=== PATIENT | male | born 1945 ===

== ENCOUNTER 2017-06-19 16:23 | Inpatient (IN) | payer MEDICARE ==
[2017-06-19] MEDS ORDERED: ZALEPLON 5 MG PO PRN (21:26)
[2017-06-19] MEDS ORDERED: COLCHICINE 0.6 MG CAPSULE PO PRN (21:26)
[2017-06-19] MEDS ORDERED: POLYETHYLENE GLYCOL 3350 17 GM/Dose PACKET PO PRN (21:26)
[2017-06-20] MEDS: Levothyroxine 50 MCG TAB PO SCH (06:20)
[2017-06-20] MEDS: Pantoprazole 40 mg EC Tab PO SCH (06:20)
--- NOTE | 2017-06-20 13:12 | PSY.TMCNF ---
Nursing - Vital Signs Vital Signs (Last 8 hours): Vital Signs 06/20/17 06/20/17 06/20/17 06:19 08:29 08:30 Temperature Pulse Rate 60 78 78 Respiratory Rate Blood Pressure 145/84 148/87 148/72 O2 Sat by Pulse Oximetry 06/20/17 06/20/17 06/20/17 09:00 10:00 12:44 Temperature 97.8 F Pulse Rate 78 78 78 Respiratory 20 20 Rate Blood Pressure 148/72 148/80 148/80 O2 Sat by Pulse 98 98 Oximetry - Medications/Other Issues Comment: To follow as per nutrition protocol - Bladder Management Bladder Pattern: Normal - Bowel Management Bowel Pattern: Normal Physical Therapy - Pain Pain (assessed during therapy session): 0 Management Techniques: Medication - Insight/Carryover Insight/Carryover: Fair - Patient/Family Education Comment: -initiated about acute rehab program, OT/rehab goals and program. iniatted adls, functional transfers/mobility training - Provider License Number: [id number] Occupational Therapy - Arousal/Attention/Orientation Level of Consciousness: Awake, Alert Patient Orientation: Person, Place, Time, Appropriate to Age, Appropriate to Situation - ADL/IADL Self Feeding: Supervision, Set-up Help Grooming: Supervision, Verbal Cues, Set-up Help Dressing-Upper Extremity: Verbal Cues, Set-up Help, Moderate Assistance Dressing-Lower Extremity: Verbal Cues, Set-up Help, Maximum Assistance - Sitting Balance Static Sitting: Supervision Dynamic Sitting: Minimal Assistance Comment: unsupported at edge of bed - Transfers Wheelchair to Bed Transfers: Verbal Cues, Set-up Help, Moderate Assistance Toilet Transfers: Verbal Cues, Set-up Help, Moderate Assistance Comment: shower: TBA - Upper Extremity Status Right Upper Extremity Comment: AROM is WFLS Left Upper Extremity Comment: PROM Is WFLS, but impaired AROM - Pain Pain (assessed during therapy session): 0 Alleviating Techniques: Medication - Insight/Carryover Insight/Carryover: Fair - Patient/Family Education Comment: -initiated about acute rehab program, OT/rehab goals and program. iniatted adls, functional transfers/mobility training - Provider Therapist: ALEXANDER Payne/Guy License Number: [id number] Speech Therapy - Plan Frequency: 3-5 times per week Duration: 1 week Nutrition - Current Diet Current Diet/ Supplement/ Feedings: 2 gram Na low fat/low cholesterol, finely chopped - Appetite Percent Meal Consumed: 50-74% - Assessment/Goals/Time Frame Assessment/Goals/Time Frame: To follow as per nutrition protocol - Provider Provider: Brittney Ford RD Case Management - Discharge Plan Discharge Plan: Home alone (2nd floor walk up) Rehabilitation Plan - Treatment Plan Treatment Plan: Physical Therapy, Occupational Therapy, Speech, Dietary, Patient /Family Education
--- NOTE | 2017-06-20 13:13 | CP.PCM.CON ---
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 He has visual disturbance as well as some left neglect Review of Systems - Constitutional Constitutional: absent: Anorexia, Chills - EENT Eyes: Blurred Vision, Diplopia Ears: absent: Decreased Hearing, Ear Discharge Nose/Mouth/Throat: absent: Nasal Congestion - Cardiovascular Cardiovascular: absent: Chest Pain - Respiratory Respiratory: absent: Cough, Dyspnea, Hemoptysis - Gastrointestinal Gastrointestinal: absent: Belching, Bloating, Constipation, Cramping - Musculoskeletal Musculoskeletal: Abnormal Gait - Integumentary Integumentary: absent: Bleeding Lesions - Neurological Neurological: absent: Abnormal Hearing, Abnormal Movements Past Patient History - Infectious Disease Hx of Infectious Diseases: None - Tetanus Immunizations Tetanus Immunization: Unknown - Past Medical History & Family History Past Medical History?: Yes - Past Social History Smoking Status: Former Smoker Home Situation {Lives}: Alone - CARDIAC Hx Hypertension: Yes - PULMONARY Hx Respiratory Disorders: Yes Hx Sleep Apnea: Yes Other/Comment: uses BPAP - NEUROLOGICAL Hx Neurological Disorder: No - HEENT Hx Cataracts: Yes (b/l cataract removal) Other/Comment: tonsillectomy - RENAL Hx Chronic Kidney Disease: No - ENDOCRINE/METABOLIC Hx Hypothyroidism: Yes - HEMATOLOGICAL/ONCOLOGICAL Hx AIDS: No Hx Human Immunodeficiency Virus (HIV): No - INTEGUMENTARY Hx Dermatological Problems: No - MUSCULOSKELETAL/RHEUMATOLOGICAL Hx Falls: No - GASTROINTESTINAL Other/Comment: inguinal hernia repair - GENITOURINARY/GYNECOLOGICAL Hx Genitourinary Disorders: No - PSYCHIATRIC Hx Depression: Yes Hx Substance Use: No - SURGICAL HISTORY Hx Cataract Extraction: Yes (b/l) Hx Tonsillectomy: Yes Other/Comment: goiter removed, sinus surgery(Polyps). Inguinal Hernia. - ANESTHESIA Hx Anesthesia: Yes Hx Anesthesia Reactions: No Hx Malignant Hyperthermia: No Meds Allergies/Adverse Reactions: Allergies Allergy/AdvReac Type Severity Reaction Status Date / Time No Known Allergies Allergy Verified 06/19/17 21:26 - Medications Medications: Current Medications Amlodipine Besylate (Norvasc) 10 mg PO DAILY [facility] Last Admin: 06/20/17 08:29 Dose: 10 mg Aspirin (Ecotrin) 81 mg PO DAILY COUNTS INCLUDE 234 BEDS AT THE [facility] Last Admin: 06/20/17 08:28 Dose: 81 mg Atenolol (Tenormin) 25 mg PO DAILY COUNTS INCLUDE 234 BEDS AT THE [facility] Last Admin: 06/20/17 08:30 Dose: 25 mg Atorvastatin Calcium (Lipitor) 80 mg PO DIN COUNTS INCLUDE 234 BEDS AT THE [facility] Clopidogrel Bisulfate (Plavix) 75 mg PO DAILY COUNTS INCLUDE 234 BEDS AT THE [facility] Last Admin: 06/20/17 08:28 Dose: 75 mg Colchicine (Colchicine) 0.6 mg PO DAILY PRN PRN Reason: Pain, Mild (1-3) Docusate Sodium (Colace) 100 mg PO BID COUNTS INCLUDE 234 BEDS AT THE [facility] Gabapentin (Neurontin) 100 mg PO BID COUNTS INCLUDE 234 BEDS AT THE [facility] Last Admin: 06/20/17 08:28 Dose: 100 mg Home Med (Febuxostat [Uloric]) 80 mg PO DAILY COUNTS INCLUDE 234 BEDS AT THE [facility] Home Med (Zaleplon [Sonata]) 5 mg PO HS PRN PRN Reason: Insomnia Hydralazine HCl (Apresoline) 10 mg PO QID PRN PRN Reason: for sbp>170 & or diastolic>100 Hydralazine HCl (Apresoline) 10 mg PO Q8 COUNTS INCLUDE 234 BEDS AT THE [facility] Last Admin: 06/20/17 06:19 Dose: 10 mg Levothyroxine Sodium (Synthroid) 50 mcg PO DAILY@0630 COUNTS INCLUDE 234 BEDS AT THE [facility] Last Admin: 06/20/17 06:20 Dose: 50 mcg Meclizine HCl (Antivert) 25 mg PO TID PRN PRN Reason: Dizziness Pantoprazole Sodium (Protonix Ec Tab) 40 mg PO 0600 COUNTS INCLUDE 234 BEDS AT THE [facility] Last Admin: 06/20/17 06:20 Dose: 40 mg Polyethylene Glycol (Miralax) 17 gm PO HS PRN PRN Reason: Constipation Sertraline HCl (Zoloft) 50 mg PO DAILY COUNTS INCLUDE 234 BEDS AT THE [facility] Last Admin: 06/20/17 09:59 Dose: 50 mg Zolpidem Tartrate (Ambien) 5 mg PO HS PRN PRN Reason: Insomnia Physical Exam - Constitutional Appears: Non-toxic, No Acute Distress - Head Exam Head Exam: ATRAUMATIC (keeps his right eye closed which lessens his diploplia) - Eye Exam Eye Exam: absent: Periorbital tenderness - ENT Exam ENT Exam: Mucous Membranes Moist - Respiratory Exam Respiratory Exam: NORMAL BREATHING PATTERN. absent: Chest Wall Tenderness - Cardiovascular Exam Cardiovascular Exam: REGULAR RHYTHM - GI/Abdominal Exam GI & Abdominal Exam: absent: Distended, Firm - Extremities Exam Extremities exam: Positive for: normal inspection. Negative for: calf tenderness, pedal edema - Neurological Exam Neurological exam: Alert, Oriented x3 - Psychiatric Exam Psychiatric exam: Normal Affect, Normal Mood - Skin Skin Exam: Warm Results - Vital Signs Recent Vital Signs: Last Vital Signs Temp 97.8 F 06/20/17 10:00 Pulse 78 06/20/17 12:44 Resp 20 06/20/17 12:44 BP 148/80 06/20/17 12:44 Pulse Ox 98 06/20/17 12:44 - Labs Result Diagrams: 06/20/17 15:25 06/20/17 15:25 Labs: Laboratory Results - last 24 hr 06/20/17 05:00 Hemoglobin A1c 5.5 Assessment & Plan - Assessment and Plan (Free Text) Assessment: 71 year old male with left HP here for acute inpatient rehab left UE dense HP left LE proximal strength is 3/5, distal 1/5 PT/OT to continue to help increase functional independence Team conference for d/c planning Pain: controlled Vascular: no evidence of DVT GI: No evidence of constipation or diarrhea Patient is an excellent acute rehabilitation candidate and will have focused speech, PT, OT and recreational therapy to help facilitate a safe and appropriate d/c plan impairment code 01.1
[2017-06-20] MEDS: FEBUXOSTAT 80 MG PO SCH (13:23)
--- NOTE | 2017-06-20 15:05 | PCM.RRTMUL ---
<Steven Yang - Last Filed: 06/21/17 12:20> MANAGER FRENCH Nurse Assessment - Ventilator Settings FIO2 (% Oxygen):: 30 - Vital Signs Blood Pressure:: 152/87 I.Reason for MANAGER FRENCH - A) Acute Change in Patient: Subjective: MANAGER FRENCH Time: 2:46p.m. Vital Signs: BP-125/69 RR-14 HR-58 O2%-97 S: Pt. seen at bed. MANAGER FRENCH called because patient just had a bowel movement and felt dizzy and got up and collappsed but did not lose consciousness. Pt. now in bed alert awake oriented x 3. Pt. denies hitting his head on the floor. Pt. wiht no complaints at this time. O: General: AAOx3 NAD Heent: NC/AT Resp: CTAB Cardio:S1-S2 no mumur MANAGER FRENCH Intervention CBC BMP EKG O2 via Nasal Canula Accucheck MANAGER FRENCH outcome: EKG- with no change from previous EKG Pt. stable and asymptomatic 139 accucheck A/P: 71 y.o. male in acute rehab s/p CVA in stable conditon. PMD notified, DR. Linder aware MANAGER FRENCH End 2:55p.m. Vitals signs BP139/75 RR-14 HR-55 O2 via NC 100% MANAGER FRENCH resident: Trey Srivastava M.D. MANAGER FRENCH leader: Dr. Sayda Mon <Sayda Mon - Last Filed: 06/27/17 16:48> Attending/Attestation - Attestation I have personally seen and examined this patient.: Yes I have fully participated in the care of the patient.: Yes I have reviewed all pertinent clinical information, including history, physical exam and plan: Yes Notes (Text): 06/27/17 16:48 seen and examined with resident, agree wit findings and plan as above.
[2017-06-20 15:28] LABS: HEMATOCRIT 46.2 % (35.0-51.0); MEAN CELL VOLUME 93.2 fl (80.0-94.0); MEAN CORPUSCULAR HEMOGLOBIN 31.7 pg (27.0-31.0); RED CELL DISTRIBUTION WIDTH 13.4 % (11.5-14.5); WHITE BLOOD COUNT 10.1 K/uL (4.8-10.8)
[2017-06-20 15:45] LABS: BLOOD UREA NITROGEN 24 mg/dl (9-20); CALCIUM 9.4 mg/dL (8.4-10.2); CARBON DIOXIDE 21 mmol/L (22-30); CHLORIDE 101 mmol/L (98-107); GFR AFRICAN-AMERICAN > 60; GLUCOSE,RANDOM 117 mg/dL (75-110); POTASSIUM 4.2 MMOL/L (3.6-5.0); SODIUM 134 mmol/l (132-148)
--- NOTE | 2017-06-20 15:49 | CARD ---
APPROVED REPORT EKG Measurement Heart [id number] <Conclusion> Sinus bradycardia with 1st degree AV block Possible Left atrial enlargement Inferior infarct, age undetermined Abnormal ECG
--- NOTE | 2017-06-20 17:08 | CP.PCM.PN ---
Subjective - Date & Time of Evaluation Date of Evaluation: 06/20/17 Time of Evaluation: 17:07 - Subjective Subjective: right HP Objective - Vital Signs/Intake and Output Vital Signs (last 24 hours): Temp Pulse Resp BP Pulse Ox 97.8 F 56 L 18 125/69 98 06/20/17 10:00 06/20/17 15:01 06/20/17 15:01 06/20/17 15:01 06/20/17 12:44 - Medications Medications: Current Medications Amlodipine Besylate (Norvasc) 10 mg PO DAILY [facility] Last Admin: 06/20/17 08:29 Dose: 10 mg Aspirin (Ecotrin) 81 mg PO DAILY [facility] Last Admin: 06/20/17 08:28 Dose: 81 mg Atenolol (Tenormin) 25 mg PO DAILY [facility] Last Admin: 06/20/17 08:30 Dose: 25 mg Atorvastatin Calcium (Lipitor) 80 mg PO DIN [facility] Last Admin: 06/20/17 17:04 Dose: 80 mg Clopidogrel Bisulfate (Plavix) 75 mg PO DAILY [facility] Last Admin: 06/20/17 08:28 Dose: 75 mg Colchicine (Colchicine) 0.6 mg PO DAILY PRN PRN Reason: Pain, Mild (1-3) Docusate Sodium (Colace) 100 mg PO BID [facility] Gabapentin (Neurontin) 100 mg PO BID [facility] Last Admin: 06/20/17 17:05 Dose: 100 mg Home Med (Febuxostat [Uloric]) 80 mg PO DAILY [facility] Hydralazine HCl (Apresoline) 10 mg PO QID PRN PRN Reason: for sbp>170 & or diastolic>100 Hydralazine HCl (Apresoline) 10 mg PO Q8 [facility] Last Admin: 06/20/17 13:41 Dose: 10 mg Levothyroxine Sodium (Synthroid) 50 mcg PO DAILY@0630 [facility] Last Admin: 06/20/17 06:20 Dose: 50 mcg Meclizine HCl (Antivert) 25 mg PO TID PRN PRN Reason: Dizziness Pantoprazole Sodium (Protonix Ec Tab) 40 mg PO 0600 [facility] Last Admin: 06/20/17 06:20 Dose: 40 mg Polyethylene Glycol (Miralax) 17 gm PO HS PRN PRN Reason: Constipation Sertraline HCl (Zoloft) 50 mg PO DAILY [facility] Last Admin: 06/20/17 09:59 Dose: 50 mg Zolpidem Tartrate (Ambien) 5 mg PO HS PRN PRN Reason: Insomnia - Labs Labs: 06/20/17 15:25 06/20/17 15:25 Physiatry Overall Plan of Care - Overall Plan of Care Estimated Length of Stay in Weeks: 3 Rehab Impairment: Mobility, Gait, Balance, Coordination Etiologic Diagnosis: Cerebrovascular Accident Rehab/Medical Prognosis: Fair - Anticipated Interventions Physical Therapy:: Yes Occupational Therapy:: Yes Speech Therapy:: Yes Recreational Therapy:: Yes - Therapy Goals Bed Mobility: Independent Ambulation: Supervision Functional Positional Changes:: Supervision - Discharge Plan Discharge Destination: Home
--- NOTE | 2017-06-20 18:35 | PCM.RRTMUL ---
<Steven Yang - Last Filed: 06/20/17 18:33> CERTIFIED WELLNESS PROGRAM COORDINATOR Nurse Assessment - Situation CERTIFIED WELLNESS PROGRAM COORDINATOR Responder Arrival Time:: 14:50 Location:: [address] [place] [address] 622 Room Number:: 622 CERTIFIED WELLNESS PROGRAM COORDINATOR Reason for Call: Looks Sicker CERTIFIED WELLNESS PROGRAM COORDINATOR Called By: RN - IV IV Inserted during CERTIFIED WELLNESS PROGRAM COORDINATOR?: No - Respiratory Oxygen Delivery Method:: Nasal Cannula Received Nebulizer Treatments:: No Was the Patient Ventilated with Bag/Mask 100% O2?: No Secretions Suctioned?: No Was the Patient Intubated?: No Was the Patient Placed on a Ventilator?: No - Ventilator Settings FIO2 (% Oxygen):: 30 - Diagnostic Test Ordered EKG:: Yes Chest X-Ray:: No CT Scan:: No - Stat Labs Ordered CERTIFIED WELLNESS PROGRAM COORDINATOR Stat Labs Ordered:: CBC, BMP CPR started during CERTIFIED WELLNESS PROGRAM COORDINATOR?: No - Vital Signs Blood Pressure:: 125/69 Pulse Rate:: 56 Respiratory Rate:: 18 Oxygen Saturation:: 100 - [place] Coma Scale Coma Scale Eye Opening:: Spontaneous Coma Scale Motor:: Obeys Commands Movement Coma Scale Verbal:: Oriented Coma Scale Total:: 15 - Time CERTIFIED WELLNESS PROGRAM COORDINATOR Ended Time CERTIFIED WELLNESS PROGRAM COORDINATOR Ended:: 14:55 - Vital Signs at end of CERTIFIED WELLNESS PROGRAM COORDINATOR Blood Pressure:: 139/75 Pulse Rate:: 57 Respiratory Rate:: 18 O2 Sat by Pulse Oximetry:: 100 - Recommendations 5) CERTIFIED WELLNESS PROGRAM COORDINATOR Level of Care Recommendations: Remain in current setting 6) Notifications: Attending Physician I.Reason for CERTIFIED WELLNESS PROGRAM COORDINATOR - A) Acute Change in Patient: Subjective: CERTIFIED WELLNESS PROGRAM COORDINATOR Time: 2:46p.m. Vital Signs: BP-125/69 RR-14 HR-58 O2%-97 S: Pt. seen at bed. CERTIFIED WELLNESS PROGRAM COORDINATOR called because patient just had a bowel movement and felt dizzy and got up and collappsed but did not lose consciousness. Pt. now in bed alert awake oriented x 3. Pt. denies hitting his head on the floor. Pt. wiht no complaints at this time. O: General: AAOx3 NAD Heent: NC/AT Resp: CTAB Cardio:S1-S2 no mumur CERTIFIED WELLNESS PROGRAM COORDINATOR Intervention CBC BMP EKG O2 via Nasal Canula Accucheck CERTIFIED WELLNESS PROGRAM COORDINATOR outcome: EKG- with no change from previous EKG Pt. stable and asymptomatic 139 accucheck A/P: 71 y.o. male in acute rehab s/p CVA in stable conditon. PMD notified, DR. Linder aware CERTIFIED WELLNESS PROGRAM COORDINATOR End 2:55p.m. Vitals signs BP139/75 RR-14 HR-55 O2 via NC 100% CERTIFIED WELLNESS PROGRAM COORDINATOR resident: Trey Srivastava M.D. CERTIFIED WELLNESS PROGRAM COORDINATOR leader: Dr. Sayda Mon <Sayda Mon - Last Filed: 06/20/17 19:04> Attending/Attestation - Attestation I have personally seen and examined this patient.: Yes I have fully participated in the care of the patient.: Yes I have reviewed all pertinent clinical information, including history, physical exam and plan: Yes Notes (Text): 06/20/17 19:03 seen and examined [facility] residents , agree with findings and plan as above.
[2017-06-21] MEDS: Pantoprazole 40 mg EC Tab PO SCH (06:19)
[2017-06-21] MEDS: Levothyroxine 50 MCG TAB PO SCH (06:20)
[2017-06-21 06:47] LABS: URIC ACID 7.5 mg/Dl (3.5-8.5)
[2017-06-21 07:12] LABS: THYROID STIMULATING HORMONE 0.24 mIU/ML (0.46-4.68)
[2017-06-21] MEDS: FEBUXOSTAT 80 MG PO SCH (13:21)
--- NOTE | 2017-06-21 14:10 | CP.PCM.HP ---
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 patient seen and examined with attending Denies CP, SOB, N/V/D, fevers, chills, headache, dizziness Present on Admission - Present on Admission Any Indicators Present on Admission: No History of DVT/PE: No History of Uncontrolled Diabetes: No Urinary Catheter: No Decubitus Ulcer Present: No Review of Systems - Review of Systems All systems: reviewed and no additional remarkable complaints except (as per HPI ) Past Patient History - Infectious Disease Hx of Infectious Diseases: None - Tetanus Immunizations Tetanus Immunization: Unknown - Past Medical History & Family History Past Medical History?: Yes - Past Social History Smoking Status: Former Smoker Home Situation {Lives}: Alone - CARDIAC Hx Hypertension: Yes - PULMONARY Hx Respiratory Disorders: Yes Hx Sleep Apnea: Yes Other/Comment: uses BPAP - NEUROLOGICAL Hx Neurological Disorder: No - HEENT Hx Cataracts: Yes (b/l cataract removal) Other/Comment: tonsillectomy - RENAL Hx Chronic Kidney Disease: No - ENDOCRINE/METABOLIC Hx Hypothyroidism: Yes - HEMATOLOGICAL/ONCOLOGICAL Hx AIDS: No Hx Human Immunodeficiency Virus (HIV): No - INTEGUMENTARY Hx Dermatological Problems: No - MUSCULOSKELETAL/RHEUMATOLOGICAL Hx Falls: No - GASTROINTESTINAL Other/Comment: inguinal hernia repair - GENITOURINARY/GYNECOLOGICAL Hx Genitourinary Disorders: No - PSYCHIATRIC Hx Depression: Yes Hx Substance Use: No - SURGICAL HISTORY Hx Cataract Extraction: Yes (b/l) Hx Tonsillectomy: Yes Other/Comment: goiter removed, sinus surgery(Polyps). Inguinal Hernia. - ANESTHESIA Hx Anesthesia: Yes Hx Anesthesia Reactions: No Hx Malignant Hyperthermia: No Meds Allergies/Adverse Reactions: Allergies Allergy/AdvReac Type Severity Reaction Status Date / Time No Known Allergies Allergy Verified 06/19/17 21:26 Physical Exam - Constitutional Appears: Non-toxic, No Acute Distress - ENT Exam ENT Exam: Mucous Membranes Moist - Respiratory Exam Respiratory Exam: Clear to Auscultation Bilateral, NORMAL BREATHING PATTERN - Cardiovascular Exam Cardiovascular Exam: REGULAR RHYTHM, +S1, +S2 - GI/Abdominal Exam GI & Abdominal Exam: Normal Bowel Sounds, Soft. absent: Distended, Guarding, Rigid, Tenderness - Extremities Exam Extremities exam: Positive for: normal inspection. Negative for: calf tenderness, pedal edema - Neurological Exam Neurological exam: Alert, Oriented x3 - Skin Skin Exam: Dry, Intact, Normal Color Results - Vital Signs Recent Vital Signs: Last Vital Signs Temp 96.3 F L 06/21/17 09:49 Pulse 61 06/21/17 13:02 Resp 20 06/21/17 09:49 BP 130/82 06/21/17 13:02 Pulse Ox 96 06/21/17 09:49 - Labs Result Diagrams: 06/20/17 15:25 06/20/17 15:25 Labs: Laboratory Results - last 24 hr 06/20/17 06/20/17 06/20/17 14:51 15:25 15:25 WBC 10.1 RBC 4.96 Hgb 15.7 Hct 46.2 MCV 93.2 MCH 31.7 H MCHC 34.0 RDW 13.4 Plt Count 229 Sodium 134 Potassium 4.2 Chloride 101 Carbon Dioxide 21 L Anion Gap 16 BUN 24 H Creatinine 1.4 Est GFR ( Amer) > 60 Est GFR (Non-Af Amer) 50 POC Glucose (mg/dL) 139 H Random Glucose 117 H Uric Acid Calcium 9.4 Triglycerides Cholesterol LDL Cholesterol Direct HDL Cholesterol TSH 3rd Generation 06/21/17 05:30 WBC RBC Hgb Hct MCV MCH MCHC RDW Plt Count Sodium Potassium Chloride Carbon Dioxide Anion Gap BUN Creatinine Est GFR ( Amer) Est GFR (Non-Af Amer) POC Glucose (mg/dL) Random Glucose Uric Acid 7.5 Calcium Triglycerides 77 Cholesterol 94 LDL Cholesterol Direct 43 HDL Cholesterol 30 TSH 3rd Generation 0.24 L Assessment & Plan - Assessment and Plan (Free Text) Assessment: 71 y/o M with Right Pont[place] stroke and secondary Left hemiplegia , admitted for rehabilitation Plan: Right Pontine stroke -Admit to acute rehab c/w current medical treatment c/w Aspirin, Plavix, and Statin -PT/OT evaluation and Tx HTN -c/w current meds c/w BP monitoring Hypothyroidism -c/w current management - Date & Time Date: 06/20/17 Time: 10:45 <Charles Linder - Last Filed: 07/06/17 09:33> Results - Vital Signs Recent Vital Signs: Last Vital Signs Temp 98.3 F 07/06/17 08:09 Pulse 71 07/06/17 08:25 Resp 20 07/06/17 08:09 BP 145/79 07/06/17 08:25 Pulse Ox 97 07/06/17 08:09 - Labs Result Diagrams: 06/20/17 15:25 06/20/17 15:25 Assessment & Plan (1) Right pontine stroke Status: Acute Priority: High (2) Hyperthyroidism Status: Acute (3) Hypertension Status: Acute (4) Cough Status: Acute (5) Nasopharyngitis, chronic Status: Acute - Assessment and Plan (Free Text) Plan: I was present during evaluation and discussed with Dr Prasanna vincent plans of care and treatment.
--- NOTE | 2017-06-21 14:30 | CP.PCM.PN ---
<PrasannaSarika - Last Filed: 06/21/17 18:38> Subjective - Date & Time of Evaluation Date of Evaluation: 06/21/17 Time of Evaluation: 10:05 - Subjective Subjective: Patient seen and examined with attending this morning Patient feeling well this morning Denies CP, SOB, N/V, dizziness. Yesterday an [employer] was called because He was feeling dizzy while having a bowel movement, but did not lose consciousness Afebrile, and VS stable Objective - Vital Signs/Intake and Output Vital Signs (last 24 hours): Temp Pulse Resp BP Pulse Ox 96.3 F L 61 20 130/82 96 06/21/17 09:49 06/21/17 13:02 06/21/17 09:49 06/21/17 13:02 06/21/17 09:49 - Medications Medications: Current Medications Amlodipine Besylate (Norvasc) 10 mg PO DAILY [facility] Last Admin: 06/21/17 09:02 Dose: 10 mg Aspirin (Ecotrin) 81 mg PO DAILY [facility] Last Admin: 06/21/17 13:03 Dose: 81 mg Atenolol (Tenormin) 25 mg PO DAILY [facility] Last Admin: 06/21/17 09:00 Dose: 25 mg Atorvastatin Calcium (Lipitor) 80 mg PO DIN [facility] Last Admin: 06/20/17 17:04 Dose: 80 mg Clopidogrel Bisulfate (Plavix) 75 mg PO DAILY [facility] Last Admin: 06/21/17 08:59 Dose: 75 mg Colchicine (Colchicine) 0.6 mg PO DAILY PRN PRN Reason: Pain, Mild (1-3) Docusate Sodium (Colace) 100 mg PO BID [facility] Last Admin: 06/21/17 08:58 Dose: 100 mg Gabapentin (Neurontin) 100 mg PO BID [facility] Last Admin: 06/21/17 09:02 Dose: 100 mg Home Med (Febuxostat [Uloric]) 80 mg PO DAILY [facility] Hydralazine HCl (Apresoline) 10 mg PO QID PRN PRN Reason: for sbp>170 & or diastolic>100 Hydralazine HCl (Apresoline) 10 mg PO Q8 [facility] Last Admin: 06/21/17 13:02 Dose: 10 mg Levothyroxine Sodium (Synthroid) 50 mcg PO DAILY@0630 [facility] Last Admin: 06/21/17 06:20 Dose: 50 mcg Meclizine HCl (Antivert) 25 mg PO TID PRN PRN Reason: Dizziness Last Admin: 06/21/17 09:07 Dose: 25 mg Pantoprazole Sodium (Protonix Ec Tab) 40 mg PO 0600 [facility] Last Admin: 06/21/17 06:19 Dose: 40 mg Polyethylene Glycol (Miralax) 17 gm PO HS PRN PRN Reason: Constipation Sertraline HCl (Zoloft) 50 mg PO DAILY [facility] Last Admin: 06/21/17 09:00 Dose: 50 mg Zolpidem Tartrate (Ambien) 5 mg PO HS PRN PRN Reason: Insomnia - Labs Labs: 06/20/17 15:25 06/20/17 15:25 - Constitutional Appears: No Acute Distress - ENT Exam ENT Exam: Mucous Membranes Moist - Respiratory Exam Respiratory Exam: Clear to Ausculation Bilateral, NORMAL BREATHING PATTERN - Cardiovascular Exam Cardiovascular Exam: REGULAR RHYTHM, +S1, +S2 - GI/Abdominal Exam GI & Abdominal Exam: Soft, Normal Bowel Sounds. absent: Guarding, Rigid, Tenderness - Extremities Exam Extremities Exam: Normal Inspection. absent: Calf Tenderness, Pedal Edema - Neurological Exam Neurological Exam: Alert, Awake, Oriented x3 - Psychiatric Exam Psychiatric exam: Normal Affect, Normal Mood - Skin Skin Exam: Dry, Intact, Normal Color Assessment and Plan - Assessment and Plan (Free Text) Assessment: 71 y/o M with Right Pontine stroke and secondary Left hemiplegia , admitted for rehabilitation Plan: Right Pontine stroke c/w rehabilitation c/w current medical treatment c/w Aspirin, Plavix, and Statin HTN -c/w current meds c/w BP monitoring Hypothyroidism -c/w current management <Charles Linder - Last Filed: 07/06/17 09:34> Objective - Vital Signs/Intake and Output Vital Signs (last 24 hours): Temp Pulse Resp BP Pulse Ox 98.3 F 71 20 145/79 97 07/06/17 08:09 07/06/17 08:25 07/06/17 08:09 07/06/17 08:25 07/06/17 08:09 - Medications Medications: Current Medications Albuterol/Ipratropium (Duoneb 3 Mg/0.5 Mg (3 Ml) Ud) 3 ml INH RTID [facility] Last Admin: 07/06/17 07:32 Dose: 3 ml Allopurinol (Zyloprim) 100 mg PO DAILY [facility] Last Admin: 07/06/17 08:26 Dose: 100 mg Aspirin (Ecotrin) 81 mg PO DAILY [facility] Last Admin: 07/06/17 08:24 Dose: 81 mg Atenolol (Tenormin) 25 mg PO DAILY [facility] Last Admin: 07/06/17 08:25 Dose: 25 mg Atorvastatin Calcium (Lipitor) 80 mg PO DIN [facility] Last Admin: 07/05/17 17:43 Dose: 80 mg Clopidogrel Bisulfate (Plavix) 75 mg PO DAILY [facility] Last Admin: 07/06/17 08:24 Dose: 75 mg Colchicine (Colchicine) 0.6 mg PO DAILY PRN PRN Reason: Pain, Mild (1-3) Last Admin: 06/24/17 08:32 Dose: 0.6 mg Docusate Sodium (Colace) 100 mg PO BID [facility] Last Admin: 07/06/17 08:23 Dose: 100 mg Fluticasone Propionate (Flonase) 1 spr JASMYN BID [facility] Last Admin: 07/06/17 08:24 Dose: 1 spr Gabapentin (Neurontin) 600 mg PO HS [facility] Last Admin: 07/05/17 21:38 Dose: 600 mg Gabapentin (Neurontin) 300 mg PO DAILY [facility] Last Admin: 07/06/17 08:24 Dose: 300 mg Hydralazine HCl (Apresoline) 25 mg PO Q8 [facility] Last Admin: 07/06/17 06:10 Dose: 25 mg Levothyroxine Sodium (Synthroid) 50 mcg PO DAILY@0630 [facility] Last Admin: 07/06/17 06:09 Dose: 50 mcg Lorazepam (Ativan) 0.5 mg PO BID PRN PRN Reason: Anxiety Meclizine HCl (Antivert) 25 mg PO TID PRN PRN Reason: Dizziness Last Admin: 06/25/17 15:20 Dose: 25 mg Multivitamins/Minerals (Therapeutic-M Tab) 1 tab PO DAILY [facility] Last Admin: 07/06/17 08:25 Dose: 1 tab Pantoprazole Sodium (Protonix Ec Tab) 40 mg PO 0600 [facility] Last Admin: 07/06/17 06:10 Dose: 40 mg Polyethylene Glycol (Miralax) 17 gm PO HS PRN PRN Reason: Constipation Last Admin: 06/21/17 21:18 Dose: 17 gm Promethazine HCl/Codeine (Phenergan/Codeine Oral Syrup) 10 ml PO Q6 PRN PRN Reason: Cough Fluticasone/Salmeterol (Advair Diskus 250/50) 1 puff IH Q12 [facility] Last Admin: 07/06/17 08:22 Dose: 1 puff Sennosides (Senokot Tab) 17.2 mg PO HS [facility] Last Admin: 07/05/17 21:39 Dose: Not Given Sertraline HCl (Zoloft) 50 mg PO DAILY [facility] Last Admin: 07/06/17 08:26 Dose: 50 mg Trazodone HCl (Desyrel) 50 mg PO HS PRN PRN Reason: Insomnia Last Admin: 07/06/17 00:57 Dose: 50 mg Verapamil HCl (Calan Sr Tab) 180 mg PO DAILY [facility] Last Admin: 07/06/17 08:22 Dose: 180 mg - Labs Labs: 06/20/17 15:25 06/20/17 15:25 Assessment and Plan (1) Right pontine stroke Status: Acute (2) Hyperthyroidism Status: Acute (3) Hypertension Status: Acute (4) Cough Status: Acute (5) Nasopharyngitis, chronic Status: Acute - Assessment and Plan (Free Text) Plan: I was present during evaluation and discussed with Dr Mims re plans of care. Charles Linder M.D.
--- NOTE | 2017-06-21 19:10 | CP.PCM.PN ---
Subjective - Date & Time of Evaluation Date of Evaluation: 06/21/17 Time of Evaluation: 19:10 - Subjective Subjective: patient seen in room denies sob/cp able to ambulate 25' in therapy today continue current care. + left HP Objective - Vital Signs/Intake and Output Vital Signs (last 24 hours): Temp Pulse Resp BP Pulse Ox 96.3 F L 61 20 130/82 96 06/21/17 09:49 06/21/17 13:02 06/21/17 09:49 06/21/17 13:02 06/21/17 09:49 - Medications Medications: Current Medications Amlodipine Besylate (Norvasc) 10 mg PO DAILY [facility] Last Admin: 06/21/17 09:02 Dose: 10 mg Aspirin (Ecotrin) 81 mg PO DAILY [facility] Last Admin: 06/21/17 13:03 Dose: 81 mg Atenolol (Tenormin) 25 mg PO DAILY [facility] Last Admin: 06/21/17 09:00 Dose: 25 mg Atorvastatin Calcium (Lipitor) 80 mg PO DIN [facility] Last Admin: 06/21/17 17:11 Dose: 80 mg Clopidogrel Bisulfate (Plavix) 75 mg PO DAILY [facility] Last Admin: 06/21/17 08:59 Dose: 75 mg Colchicine (Colchicine) 0.6 mg PO DAILY PRN PRN Reason: Pain, Mild (1-3) Docusate Sodium (Colace) 100 mg PO BID [facility] Last Admin: 06/21/17 17:10 Dose: 100 mg Gabapentin (Neurontin) 100 mg PO BID [facility] Last Admin: 06/21/17 17:10 Dose: 100 mg Home Med (Febuxostat [Uloric]) 80 mg PO DAILY [facility] Hydralazine HCl (Apresoline) 10 mg PO QID PRN PRN Reason: for sbp>170 & or diastolic>100 Hydralazine HCl (Apresoline) 10 mg PO Q8 [facility] Last Admin: 06/21/17 13:02 Dose: 10 mg Levothyroxine Sodium (Synthroid) 50 mcg PO DAILY@0630 [facility] Last Admin: 06/21/17 06:20 Dose: 50 mcg Meclizine HCl (Antivert) 25 mg PO TID PRN PRN Reason: Dizziness Last Admin: 06/21/17 09:07 Dose: 25 mg Pantoprazole Sodium (Protonix Ec Tab) 40 mg PO 0600 [facility] Last Admin: 06/21/17 06:19 Dose: 40 mg Polyethylene Glycol (Miralax) 17 gm PO HS PRN PRN Reason: Constipation Sertraline HCl (Zoloft) 50 mg PO DAILY [facility] Last Admin: 06/21/17 09:00 Dose: 50 mg Zolpidem Tartrate (Ambien) 5 mg PO HS PRN PRN Reason: Insomnia - Labs Labs: 06/20/17 15:25 06/20/17 15:25
[2017-06-22] MEDS: Levothyroxine 50 MCG TAB PO SCH (06:28)
[2017-06-22] MEDS: Pantoprazole 40 mg EC Tab PO SCH (06:28)
[2017-06-22] MEDS: FEBUXOSTAT 80 MG PO SCH (13:22)
--- NOTE | 2017-06-22 22:17 | CP.PCM.PN ---
Subjective - Date & Time of Evaluation Date of Evaluation: 06/22/17 Time of Evaluation: 09:00 - Subjective Subjective: patient was seen and examined with attending patient afebrile, VS stable no events overnight Objective - Vital Signs/Intake and Output Vital Signs (last 24 hours): Temp Pulse Resp BP Pulse Ox 98.3 F 62 19 158/84 H 96 06/22/17 09:39 06/22/17 21:41 06/22/17 09:39 06/22/17 21:41 06/22/17 09:39 - Medications Medications: Current Medications Allopurinol (Zyloprim) 100 mg PO DAILY [facility] Last Admin: 06/22/17 13:19 Dose: 100 mg Amlodipine Besylate (Norvasc) 10 mg PO DAILY [facility] Last Admin: 06/22/17 08:41 Dose: 10 mg Aspirin (Ecotrin) 81 mg PO DAILY [facility] Last Admin: 06/22/17 08:40 Dose: 81 mg Atenolol (Tenormin) 25 mg PO DAILY [facility] Last Admin: 06/22/17 08:41 Dose: 25 mg Atorvastatin Calcium (Lipitor) 80 mg PO DIN [facility] Last Admin: 06/22/17 17:30 Dose: 80 mg Clopidogrel Bisulfate (Plavix) 75 mg PO DAILY [facility] Last Admin: 06/22/17 08:40 Dose: 75 mg Colchicine (Colchicine) 0.6 mg PO DAILY PRN PRN Reason: Pain, Mild (1-3) Docusate Sodium (Colace) 100 mg PO BID [facility] Last Admin: 06/22/17 17:29 Dose: 100 mg Gabapentin (Neurontin) 100 mg PO BID [facility] Last Admin: 06/22/17 17:29 Dose: 100 mg Hydralazine HCl (Apresoline) 10 mg PO QID PRN PRN Reason: for sbp>170 & or diastolic>100 Hydralazine HCl (Apresoline) 10 mg PO Q8 [facility] Last Admin: 06/22/17 21:41 Dose: 10 mg Levothyroxine Sodium (Synthroid) 50 mcg PO DAILY@0630 [facility] Last Admin: 06/22/17 06:28 Dose: 50 mcg Meclizine HCl (Antivert) 25 mg PO TID PRN PRN Reason: Dizziness Last Admin: 06/21/17 09:07 Dose: 25 mg Pantoprazole Sodium (Protonix Ec Tab) 40 mg PO 0600 [facility] Last Admin: 06/22/17 06:28 Dose: 40 mg Polyethylene Glycol (Miralax) 17 gm PO HS PRN PRN Reason: Constipation Last Admin: 06/21/17 21:18 Dose: 17 gm Sennosides (Senokot Tab) 17.2 mg PO HS [facility] Last Admin: 06/22/17 21:47 Dose: 17.2 mg Sertraline HCl (Zoloft) 50 mg PO DAILY [facility] Last Admin: 06/22/17 08:42 Dose: 50 mg Zolpidem Tartrate (Ambien) 5 mg PO HS PRN PRN Reason: Insomnia - Labs Labs: 06/20/17 15:25 06/20/17 15:25 - Additional Findings Additional findings: Constitutional Appears: No Acute Distress - ENT Exam ENT Exam: Mucous Membranes Moist - Respiratory Exam Respiratory Exam: Clear to Ausculation Bilateral, NORMAL BREATHING PATTERN - Cardiovascular Exam Cardiovascular Exam: REGULAR RHYTHM, +S1, +S2 - GI/Abdominal Exam GI & Abdominal Exam: Soft, Normal Bowel Sounds. absent: Guarding, Rigid, Tenderness - Extremities Exam Extremities Exam: Normal Inspection. 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
[2017-06-23] MEDS: Pantoprazole 40 mg EC Tab PO SCH (06:16)
[2017-06-23] MEDS: Levothyroxine 50 MCG TAB PO SCH (06:16)
--- NOTE | 2017-06-23 07:55 | CP.PCM.CON ---
History of Present Illness - History of Present Illness History of Present Illness: Pt is a 71 year old male referred to the lyric writer for evaluation following a CVA. Med history positive for HTN, overactive thyroid, hernia, cataracts. See medical record for complete medical history and medications. Social History: Pt lives alone. He was 3x. Pt has two children ages 6 and 12 who reside with their mother. Pt;s grown children reside in [place]. Pt's siblings reside in [place]. Ed/Voc: pt born/raised in the [facility], college educated, worked as a teacher. Pt did multiple jobs in the [place], and last [employer]. Psych: pt reported a history of psych intervention 10+ years ago for treatment of depression. No recent history. No hx of alc/sub abuse. Pt spoke of satisfaction prior to admission with yazdanism daily and [employer] study. He spoke of his depression with the CVA, depression/anxiety and worry. Pt spoke of improved mood with the progress observed. MSE: pt alert, oriented x3, relevant/coherent, no psychosis, affect constricted , mood dysphoric, no si ho hi ideation. Pt spoke of his optimism, desire for progress and return to lifestyle. Dx: ADjustment Dx plan: Continued Sup therapy Past Patient History - Infectious Disease Hx of Infectious Diseases: None - Tetanus Immunizations Tetanus Immunization: Unknown - Past Medical History & Family History Past Medical History?: Yes - Past Social History Smoking Status: Former Smoker Home Situation {Lives}: Alone - CARDIAC Hx Hypertension: Yes - PULMONARY Hx Respiratory Disorders: Yes Hx Sleep Apnea: Yes Other/Comment: uses BPAP - NEUROLOGICAL Hx Neurological Disorder: No - HEENT Hx Cataracts: Yes (b/l cataract removal) Other/Comment: tonsillectomy - RENAL Hx Chronic Kidney Disease: No - ENDOCRINE/METABOLIC Hx Hypothyroidism: Yes - HEMATOLOGICAL/ONCOLOGICAL Hx AIDS: No Hx Human Immunodeficiency Virus (HIV): No - INTEGUMENTARY Hx Dermatological Problems: No - MUSCULOSKELETAL/RHEUMATOLOGICAL Hx Falls: No - GASTROINTESTINAL Other/Comment: inguinal hernia repair - GENITOURINARY/GYNECOLOGICAL Hx Genitourinary Disorders: No - PSYCHIATRIC Hx Depression: Yes Hx Substance Use: No - SURGICAL HISTORY Hx Cataract Extraction: Yes (b/l) Hx Tonsillectomy: Yes Other/Comment: goiter removed, sinus surgery(Polyps). Inguinal Hernia. - ANESTHESIA Hx Anesthesia: Yes Hx Anesthesia Reactions: No Hx Malignant Hyperthermia: No Meds Allergies/Adverse Reactions: Allergies Allergy/AdvReac Type Severity Reaction Status Date / Time No Known Allergies Allergy Verified 06/19/17 21:26 - Medications Medications: Current Medications Allopurinol (Zyloprim) 100 mg PO DAILY [facility] Last Admin: 06/22/17 13:19 Dose: 100 mg Amlodipine Besylate (Norvasc) 10 mg PO DAILY [facility] Last Admin: 06/22/17 08:41 Dose: 10 mg Aspirin (Ecotrin) 81 mg PO DAILY [facility] Last Admin: 06/22/17 08:40 Dose: 81 mg Atenolol (Tenormin) 25 mg PO DAILY [facility] Last Admin: 06/22/17 08:41 Dose: 25 mg Atorvastatin Calcium (Lipitor) 80 mg PO DIN [facility] Last Admin: 06/22/17 17:30 Dose: 80 mg Clopidogrel Bisulfate (Plavix) 75 mg PO DAILY [facility] Last Admin: 06/22/17 08:40 Dose: 75 mg Colchicine (Colchicine) 0.6 mg PO DAILY PRN PRN Reason: Pain, Mild (1-3) Docusate Sodium (Colace) 100 mg PO BID [facility] Last Admin: 06/22/17 17:29 Dose: 100 mg Gabapentin (Neurontin) 100 mg PO BID [facility] Last Admin: 06/22/17 17:29 Dose: 100 mg Hydralazine HCl (Apresoline) 10 mg PO QID PRN PRN Reason: for sbp>170 & or diastolic>100 Hydralazine HCl (Apresoline) 10 mg PO Q8 [facility] Last Admin: 06/23/17 06:14 Dose: 10 mg Levothyroxine Sodium (Synthroid) 50 mcg PO DAILY@0630 [facility] Last Admin: 06/23/17 06:16 Dose: 50 mcg Meclizine HCl (Antivert) 25 mg PO TID PRN PRN Reason: Dizziness Last Admin: 06/21/17 09:07 Dose: 25 mg Pantoprazole Sodium (Protonix Ec Tab) 40 mg PO 0600 [facility] Last Admin: 06/23/17 06:16 Dose: 40 mg Polyethylene Glycol (Miralax) 17 gm PO HS PRN PRN Reason: Constipation Last Admin: 06/21/17 21:18 Dose: 17 gm Sennosides (Senokot Tab) 17.2 mg PO HS [facility] Last Admin: 06/22/17 21:47 Dose: 17.2 mg Sertraline HCl (Zoloft) 50 mg PO DAILY [facility] Last Admin: 06/22/17 08:42 Dose: 50 mg Zolpidem Tartrate (Ambien) 5 mg PO HS PRN PRN Reason: Insomnia Results - Vital Signs Recent Vital Signs: Last Vital Signs Temp 97.4 F L 06/22/17 20:00 Pulse 67 06/23/17 06:14 Resp 20 06/22/17 20:00 BP 154/80 H 06/23/17 06:14 Pulse Ox 96 06/22/17 20:00 - Labs Result Diagrams: 06/20/17 15:25 06/20/17 15:25
--- NOTE | 2017-06-23 09:51 | CP.PCM.PN ---
Subjective - Date & Time of Evaluation Date of Evaluation: 06/23/17 Time of Evaluation: 09:50 - Subjective Subjective: Patient is doing very well Has no chest pain or SOB Still with occasional constipation. Objective - Vital Signs/Intake and Output Vital Signs (last 24 hours): Temp Pulse Resp BP Pulse Ox 97.4 F L 70 20 158/79 H 96 06/22/17 20:00 06/23/17 08:47 06/22/17 20:00 06/23/17 08:48 06/22/17 20:00 - Medications Medications: Current Medications Allopurinol (Zyloprim) 100 mg PO DAILY [facility] Last Admin: 06/23/17 08:45 Dose: 100 mg Amlodipine Besylate (Norvasc) 10 mg PO DAILY [facility] Last Admin: 06/23/17 08:48 Dose: 10 mg Aspirin (Ecotrin) 81 mg PO DAILY [facility] Last Admin: 06/23/17 08:45 Dose: 81 mg Atenolol (Tenormin) 25 mg PO DAILY [facility] Last Admin: 06/23/17 08:47 Dose: 25 mg Atorvastatin Calcium (Lipitor) 80 mg PO DIN [facility] Last Admin: 06/22/17 17:30 Dose: 80 mg Clopidogrel Bisulfate (Plavix) 75 mg PO DAILY [facility] Last Admin: 06/23/17 08:46 Dose: 75 mg Colchicine (Colchicine) 0.6 mg PO DAILY PRN PRN Reason: Pain, Mild (1-3) Docusate Sodium (Colace) 100 mg PO BID [facility] Last Admin: 06/23/17 08:46 Dose: 100 mg Gabapentin (Neurontin) 100 mg PO BID [facility] Last Admin: 06/23/17 08:46 Dose: 100 mg Hydralazine HCl (Apresoline) 10 mg PO QID PRN PRN Reason: for sbp>170 & or diastolic>100 Hydralazine HCl (Apresoline) 10 mg PO Q8 [facility] Last Admin: 06/23/17 06:14 Dose: 10 mg Levothyroxine Sodium (Synthroid) 50 mcg PO DAILY@0630 [facility] Last Admin: 06/23/17 06:16 Dose: 50 mcg Meclizine HCl (Antivert) 25 mg PO TID PRN PRN Reason: Dizziness Last Admin: 06/23/17 08:50 Dose: 25 mg Pantoprazole Sodium (Protonix Ec Tab) 40 mg PO 0600 [facility] Last Admin: 06/23/17 06:16 Dose: 40 mg Polyethylene Glycol (Miralax) 17 gm PO HS PRN PRN Reason: Constipation Last Admin: 06/21/17 21:18 Dose: 17 gm Sennosides (Senokot Tab) 17.2 mg PO HS [facility] Last Admin: 06/22/17 21:47 Dose: 17.2 mg Sertraline HCl (Zoloft) 50 mg PO DAILY [facility] Last Admin: 06/23/17 08:46 Dose: 50 mg Zolpidem Tartrate (Ambien) 5 mg PO HS PRN PRN Reason: Insomnia - Labs Labs: 06/20/17 15:25 06/20/17 15:25 - Head Exam Head Exam: NORMAL INSPECTION - Eye Exam Eye Exam: Normal appearance - ENT Exam ENT Exam: Mucous Membranes Moist - Respiratory Exam Respiratory Exam: Clear to Ausculation Bilateral - Cardiovascular Exam Cardiovascular Exam: REGULAR RHYTHM - GI/Abdominal Exam GI & Abdominal Exam: Normal Bowel Sounds - Neurological Exam Neurological Exam: Awake, Oriented x3 Assessment and Plan (1) Neurologic gait dysfunction Status: Acute (2) Hypertension Status: Acute (3) Hypothyroidism Status: Acute (4) Right pontine stroke Status: Acute - Assessment and Plan (Free Text) Plan: Con tmeds Cont tx Cont PT
--- NOTE | 2017-06-23 20:52 | CP.PCM.PN ---
Subjective - Date & Time of Evaluation Date of Evaluation: 06/23/17 Time of Evaluation: 15:00 - Subjective Subjective: no acute complaints Objective - Vital Signs/Intake and Output Vital Signs (last 24 hours): Temp Pulse Resp BP Pulse Ox 97.0 F L 67 18 159/93 H 96 06/23/17 20:08 06/23/17 20:08 06/23/17 20:08 06/23/17 20:08 06/23/17 20:08 - Medications Medications: Current Medications Allopurinol (Zyloprim) 100 mg PO DAILY [facility] Last Admin: 06/23/17 08:45 Dose: 100 mg Amlodipine Besylate (Norvasc) 10 mg PO DAILY [facility] Last Admin: 06/23/17 08:48 Dose: 10 mg Aspirin (Ecotrin) 81 mg PO DAILY [facility] Last Admin: 06/23/17 08:45 Dose: 81 mg Atenolol (Tenormin) 25 mg PO DAILY [facility] Last Admin: 06/23/17 08:47 Dose: 25 mg Atorvastatin Calcium (Lipitor) 80 mg PO DIN [facility] Last Admin: 06/23/17 16:47 Dose: 80 mg Clopidogrel Bisulfate (Plavix) 75 mg PO DAILY [facility] Last Admin: 06/23/17 08:46 Dose: 75 mg Colchicine (Colchicine) 0.6 mg PO DAILY PRN PRN Reason: Pain, Mild (1-3) Docusate Sodium (Colace) 100 mg PO BID [facility] Last Admin: 06/23/17 16:47 Dose: 100 mg Gabapentin (Neurontin) 100 mg PO DAILY [facility] Gabapentin (Neurontin) 600 mg PO HS [facility] Hydralazine HCl (Apresoline) 10 mg PO QID PRN PRN Reason: for sbp>170 & or diastolic>100 Hydralazine HCl (Apresoline) 10 mg PO Q8 [facility] Last Admin: 06/23/17 13:24 Dose: 10 mg Levothyroxine Sodium (Synthroid) 50 mcg PO DAILY@0630 [facility] Last Admin: 06/23/17 06:16 Dose: 50 mcg Meclizine HCl (Antivert) 25 mg PO TID PRN PRN Reason: Dizziness Last Admin: 06/23/17 08:50 Dose: 25 mg Pantoprazole Sodium (Protonix Ec Tab) 40 mg PO 0600 [facility] Last Admin: 06/23/17 06:16 Dose: 40 mg Polyethylene Glycol (Miralax) 17 gm PO HS PRN PRN Reason: Constipation Last Admin: 06/21/17 21:18 Dose: 17 gm Sennosides (Senokot Tab) 17.2 mg PO HS [facility] Last Admin: 06/22/17 21:47 Dose: 17.2 mg Sertraline HCl (Zoloft) 50 mg PO DAILY [facility] Last Admin: 06/23/17 08:46 Dose: 50 mg - Labs Labs: 06/20/17 15:25 06/20/17 15:25 - Head Exam Head Exam: ATRAUMATIC, NORMAL INSPECTION, NORMOCEPHALIC - Eye Exam Eye Exam: EOMI, Normal appearance Pupil Exam: NORMAL ACCOMODATION, PERRL - ENT Exam ENT Exam: Mucous Membranes Moist, Normal Exam - Neck Exam Neck Exam: Normal Inspection - Respiratory Exam Respiratory Exam: Clear to Ausculation Bilateral, NORMAL BREATHING PATTERN - Cardiovascular Exam Cardiovascular Exam: REGULAR RHYTHM - GI/Abdominal Exam GI & Abdominal Exam: Normal Bowel Sounds - Rectal Exam Rectal Exam: NORMAL INSPECTION - Exam External exam: NORMAL EXTERNAL EXAM Bimanual exam: NORMAL BIMANUAL EXAM - Extremities Exam Extremities Exam: Normal Capillary Refill - Back Exam Back Exam: NORMAL INSPECTION - Neurological Exam Neurological Exam: Alert, Awake - Psychiatric Exam Psychiatric exam: Normal Affect - Skin Skin Exam: Normal Color Assessment and Plan (1) Dizziness Status: Acute (2) Hyperthyroidism Status: Acute (3) Right pontine stroke Assessment & Plan: plan for physical, occupational, rec therapy covering for Dr francois Status: Acute (4) Sprain of knee Status: Acute
[2017-06-24] MEDS: Pantoprazole 40 mg EC Tab PO SCH (05:55)
[2017-06-24] MEDS: Levothyroxine 50 MCG TAB PO SCH (05:56)
[2017-06-25] MEDS: Levothyroxine 50 MCG TAB PO SCH (06:36)
[2017-06-25] MEDS: Pantoprazole 40 mg EC Tab PO SCH (06:36)
--- NOTE | 2017-06-25 11:18 | CP.PCM.PN ---
Subjective - Date & Time of Evaluation Date of Evaluation: 06/24/17 Time of Evaluation: 10:00 - Subjective Subjective: patient is doing well Has no chest pain or SOB. Objective - Vital Signs/Intake and Output Vital Signs (last 24 hours): Temp Pulse Resp BP Pulse Ox 97.0 F L 57 L 20 138/72 96 06/25/17 08:18 06/25/17 09:12 06/25/17 08:18 06/25/17 09:12 06/25/17 08:18 - Medications Medications: Current Medications Allopurinol (Zyloprim) 100 mg PO DAILY [facility] Last Admin: 06/25/17 09:11 Dose: 100 mg Amlodipine Besylate (Norvasc) 10 mg PO DAILY [facility] Last Admin: 06/25/17 09:12 Dose: Not Given Aspirin (Ecotrin) 81 mg PO DAILY [facility] Last Admin: 06/25/17 09:11 Dose: 81 mg Atenolol (Tenormin) 25 mg PO DAILY [facility] Last Admin: 06/25/17 09:11 Dose: 25 mg Atorvastatin Calcium (Lipitor) 80 mg PO DIN [facility] Last Admin: 06/24/17 16:50 Dose: 80 mg Clopidogrel Bisulfate (Plavix) 75 mg PO DAILY [facility] Last Admin: 06/25/17 09:11 Dose: 75 mg Colchicine (Colchicine) 0.6 mg PO DAILY PRN PRN Reason: Pain, Mild (1-3) Last Admin: 06/24/17 08:32 Dose: 0.6 mg Docusate Sodium (Colace) 100 mg PO BID [facility] Last Admin: 06/25/17 09:11 Dose: 100 mg Gabapentin (Neurontin) 100 mg PO DAILY [facility] Last Admin: 06/25/17 09:10 Dose: 100 mg Gabapentin (Neurontin) 600 mg PO HS [facility] Last Admin: 06/24/17 21:17 Dose: 600 mg Hydralazine HCl (Apresoline) 10 mg PO Q8 [facility] Last Admin: 06/25/17 06:36 Dose: 10 mg Levothyroxine Sodium (Synthroid) 50 mcg PO DAILY@0630 [facility] Last Admin: 06/25/17 06:36 Dose: 50 mcg Meclizine HCl (Antivert) 25 mg PO TID PRN PRN Reason: Dizziness Last Admin: 06/25/17 09:11 Dose: 25 mg Pantoprazole Sodium (Protonix Ec Tab) 40 mg PO 0600 [facility] Last Admin: 06/25/17 06:36 Dose: 40 mg Polyethylene Glycol (Miralax) 17 gm PO HS PRN PRN Reason: Constipation Last Admin: 06/21/17 21:18 Dose: 17 gm Sennosides (Senokot Tab) 17.2 mg PO HS [facility] Last Admin: 06/24/17 21:16 Dose: 17.2 mg Sertraline HCl (Zoloft) 50 mg PO DAILY [facility] Last Admin: 06/25/17 09:11 Dose: 50 mg - Labs Labs: 06/20/17 15:25 06/20/17 15:25
[2017-06-26] MEDS: Pantoprazole 40 mg EC Tab PO SCH (05:48)
[2017-06-26] MEDS: Levothyroxine 50 MCG TAB PO SCH (05:48)
--- NOTE | 2017-06-26 17:07 | CP.PCM.PN ---
Subjective - Date & Time of Evaluation Date of Evaluation: 06/26/17 Time of Evaluation: 17:06 - Subjective Subjective: Patient seen in the room good left LE strength and improving left UE strength, but 3-/5 proximal strength ambulating 45' with quad cane continue current care Objective - Vital Signs/Intake and Output Vital Signs (last 24 hours): Temp Pulse Resp BP Pulse Ox 97.8 F 63 20 142/86 97 06/26/17 09:32 06/26/17 13:17 06/26/17 09:32 06/26/17 13:17 06/26/17 09:32 - Medications Medications: Current Medications Albuterol/Ipratropium (Duoneb 3 Mg/0.5 Mg (3 Ml) Ud) 3 ml INH RTID [facility] Allopurinol (Zyloprim) 100 mg PO DAILY [facility] Last Admin: 06/26/17 08:23 Dose: 100 mg Aspirin (Ecotrin) 81 mg PO DAILY [facility] Last Admin: 06/26/17 08:24 Dose: 81 mg Atenolol (Tenormin) 25 mg PO DAILY [facility] Last Admin: 06/26/17 08:26 Dose: 25 mg Atorvastatin Calcium (Lipitor) 80 mg PO DIN [facility] Last Admin: 06/26/17 16:31 Dose: 80 mg Clopidogrel Bisulfate (Plavix) 75 mg PO DAILY [facility] Last Admin: 06/26/17 08:22 Dose: 75 mg Colchicine (Colchicine) 0.6 mg PO DAILY PRN PRN Reason: Pain, Mild (1-3) Last Admin: 06/24/17 08:32 Dose: 0.6 mg Docusate Sodium (Colace) 100 mg PO BID [facility] Last Admin: 06/26/17 16:30 Dose: 100 mg Gabapentin (Neurontin) 100 mg PO DAILY [facility] Last Admin: 06/26/17 08:23 Dose: 100 mg Gabapentin (Neurontin) 600 mg PO HS [facility] Last Admin: 06/25/17 21:10 Dose: 600 mg Hydralazine HCl (Apresoline) 10 mg PO Q8 [facility] Last Admin: 06/26/17 13:17 Dose: 10 mg Levothyroxine Sodium (Synthroid) 50 mcg PO DAILY@0630 [facility] Last Admin: 06/26/17 05:48 Dose: 50 mcg Meclizine HCl (Antivert) 25 mg PO TID PRN PRN Reason: Dizziness Last Admin: 06/25/17 15:20 Dose: 25 mg Pantoprazole Sodium (Protonix Ec Tab) 40 mg PO 0600 [facility] Last Admin: 06/26/17 05:48 Dose: 40 mg Polyethylene Glycol (Miralax) 17 gm PO HS PRN PRN Reason: Constipation Last Admin: 06/21/17 21:18 Dose: 17 gm Sennosides (Senokot Tab) 17.2 mg PO HS [facility] Last Admin: 06/25/17 21:10 Dose: 17.2 mg Sertraline HCl (Zoloft) 50 mg PO DAILY [facility] Last Admin: 06/26/17 08:22 Dose: 50 mg Verapamil HCl (Calan Sr Capsule) 120 mg PO DAILY [facility] - Labs Labs: 06/20/17 15:25 06/20/17 15:25
[2017-06-26] MEDS ORDERED: Albuterol-Ipratrop 3 mg / 0.5 (3 ml) UD INH STA (18:29)
[2017-06-26] MEDS: Albuterol-Ipratrop 3 mg / 0.5 (3 ml) UD INH SCH (18:59)
[2017-06-27] MEDS: Levothyroxine 50 MCG TAB PO SCH (06:11)
[2017-06-27] MEDS: Pantoprazole 40 mg EC Tab PO SCH (06:11)
[2017-06-27] MEDS: Albuterol-Ipratrop 3 mg / 0.5 (3 ml) UD INH SCH ×3 (07:20→20:23)
[2017-06-27] MEDS ORDERED: Verapamil SR 120 MG CApsule PO SCH (09:00)
--- NOTE | 2017-06-27 13:18 | PSY.TMCNF ---
Nursing - Vital Signs Vital Signs (Last 8 hours): Vital Signs 06/27/17 06/27/17 06/27/17 06:11 08:47 08:56 Temperature 98.1 F Pulse Rate 67 68 68 Respiratory 20 Rate Blood Pressure 169/94 H 152/87 H 152/87 H O2 Sat by Pulse Oximetry 06/27/17 06/27/17 09:02 13:13 Temperature 98.1 F Pulse Rate 68 60 Respiratory 20 Rate Blood Pressure 152/87 H 151/76 H O2 Sat by Pulse 96 Oximetry Pain: 0 - Precautions: Precautions: Fall Prevention, Aspiration - Medications/Other Issues Comment: Tends to be impulsive during ADL's. Safety precautions reinforced. - Consults Comment: Dr. Min, Dr. Andrade - Toileting Toileting: Moderate Assistance - Bladder Management Bladder Pattern: Normal Voiding Method: Toilet, Urinal Bladder Management: Supervision Frequency of Accidents: 0 - Bowel Management Bowel Pattern: Normal Bowel Management: Supervision Frequency of Accidents: 0 - Transfers Transfers: Moderate Assistance - ADL's ADL's: Maximal Assistance - Patient/Family Teaching Comments: CARE POST CVA AND SAFETY PRECAUTIONS - Goals/Time Frame Comments: PER MULTIDISCIPLINARY CARE PLAN GOALS - Provider Provider: NISREEN GIRALDON RN CRRN Physical Therapy - Bed Mobility Bed Mobility: Contact Guard, Minimal Assistance - Transfers Wheelchair to Mat: Verbal Cues, Minimal Assistance, Moderate Assistance Sit to Stand: Verbal Cues, Contact Guard, Minimal Assistance - Ambulation Level of Assistance: Verbal Cues, Minimal Assistance, Moderate Assistance Distance (ft.): 45 Assistive Devices: Wide base quad cane Orthoses: posterior leat spring used on RLE Comment: -45 feet with WBQC (RUE) and posterior spring leaf trial AFO on the L foot 2' to foot drop. -patient requires min A for balance/weight shifting and mod A at times for balance. -patient uses step to pattern and requires cues for improved L foot placement to improve anterior/posterior alignment and position - Stair Negotiation Stairs: Level of Assistance: Verbal Cues, Minimal Assistance, Moderate Assistance Number of Stairs: 4 Stairs: Assistive Devices: Right Handrail Comment: 4 6inch steps with R rail, step to pattern with step by step cueing for sequencing mod A on descent with assistance to abduction L foot and min/mod A on ascent, VCs for control and sequencing and safety. -requires cues to reduce speed and maintain breathing patern - Standing Balance Static Stand: Contact Guard Assist Dynamic Stand: Minimal Assistance, Moderate Assistance - Pain Pain (assessed during therapy session): 0 Management Techniques: Medication - Insight/Carryover Insight/Carryover: Fair - Patient/Family Education Comment: safety, therapy schedule, therapy goals, mobility, use of DME, stroke recovery, relaxation techniques, use of call [place], WC mobility, POC - Assessment/Plan Assessment: Pt is agreeable to participate in recreation therapy sessions. Pt is oriented to new leisure tasks to improve pt's attention to task, problem solving, and insight. Pt demonstrates improved direction following; however, requires min-mod verbal cues for attention to task and task carryover. Pt's mood continues to be stable-positive although presents with decrease insight of deficits. - Goals Timeframe: 7 days Goals: -6 steps with single rail with min A. -75 feet with WBQC with CG with appropriate L foot bracing. -CG for sit to/from stand. -min A for SPT - Provider License Number: [id number] Occupational Therapy - Arousal/Attention/Orientation Patient Orientation: Person, Place, Time, Appropriate to Age, Appropriate to Situation - ADL/IADL Self Feeding: Independent, Set-up Help Grooming: Independent, Set-up Help Dressing-Upper Extremity: Verbal Cues, Set-up Help, Moderate Assistance Dressing-Lower Extremity: Verbal Cues, Set-up Help, Maximum Assistance - Sitting Balance Dynamic Sitting: Reaches across midline, Reaches out of base of support, Reaches within base of support, Contact Guard Assist, Minimal Assistance Comment: unsupported at edge of bed - Transfers Wheelchair to Bed Transfers: Verbal Cues, Set-up Help, Minimal Assistance Toilet Transfers: Verbal Cues, Set-up Help, Minimal Assistance - Wheelchair Management Level of Assistance: Dependent - Upper Extremity Status Right Upper Extremity Comment: AROM is WFLS Left Upper Extremity Comment: PROM Is WFLS, but impaired AROM - Pain Pain (assessed during therapy session): 0 Alleviating Techniques: Medication - Insight/Carryover Insight/Carryover: Fair - Patient/Family Education Comment: safety, therapy schedule, therapy goals, mobility, use of DME, stroke recovery, relaxation techniques, use of call [place], WC mobility, POC - Assessment/Plan Assessment: Pt is agreeable to participate in recreation therapy sessions. Pt is oriented to new leisure tasks to improve pt's attention to task, problem solving, and insight. Pt demonstrates improved direction following; however, requires min-mod verbal cues for attention to task and task carryover. Pt's mood continues to be stable-positive although presents with decrease insight of deficits. - Goals Timeframe: 7 days Goals: -6 steps with single rail with min A. -75 feet with WBQC with CG with appropriate L foot bracing. -CG for sit to/from stand. -min A for SPT - Provider Therapist: Betsey Price, OTR/L Speech Therapy - Consult Information Patient on Program: Yes Medical Diagnosis: CVA Treatment Diagnosis: minimal dysarthria and dysphagia - Assessment Comment: minimal dysarthria, though speech WFL when utilizing compensatory speech strategies - Plan Assessment: Pt is agreeable to participate in recreation therapy sessions. Pt is oriented to new leisure tasks to improve pt's attention to task, problem solving, and insight. Pt demonstrates improved direction following; however, requires min-mod verbal cues for attention to task and task carryover. Pt's mood continues to be stable-positive although presents with decrease insight of deficits. - Provider Therapist: Keely Bean License Number: [id number] Recreational Therapy - Participation Participation: Participates in Individual and/or Group Sessions - Attendance Attendance: 3-5 times per week - Activities Leisure Activities: Cards and Games - Socialization Level of Socialization: Initiates/interacts freely with care givers and peer - Diversional Time Diversional Time: socializing - Assessment Assessment/Plan: Pt is agreeable to participate in recreation therapy sessions. Pt is oriented to new leisure tasks to improve pt's attention to task, problem solving, and insight. Pt demonstrates improved direction following; however, requires min-mod verbal cues for attention to task and task carryover. Pt's mood continues to be stable-positive although presents with decrease insight of deficits. Problems Currently Limiting Participation: L side weakness, decrease leisure awareness level, slurred speech Goals and Time Frame: Pt will be encouraged to participate in 1:1 and group recreation therapy sessions 3-5x week to improve activity tolerance level, arousal level, and leisure awareness level. - Provider Therapist: Alta Beyer, MONUMENT MASON #[id number] Nutrition - Current Diet Current Diet/ Supplement/ Feedings: 2 gram Na low fat/low cholesterol advanced bite size thin liquids. no straw when drinking - Appetite Percent Meal Consumed: 75-100% - Comments Comments: CARE POST CVA AND SAFETY PRECAUTIONS - Assessment/Goals/Time Frame Assessment/Goals/Time Frame: Tends to be impulsive during ADL's. Safety precautions reinforced. - Provider Provider: Brittney Ford RD Case Management - Psychosocial Assessment Support Systems: Lives alone. Has supportive friend Cintia Psychological Interventions/Needs: Alert and oriented . He is motivated to participate in all therapy treatments Discharge Concerns: Lives alone in a 2nd floor walk up apartment Patient/Family Meeting: Met with patient who was just admitted to the Rehab unit 06/19/2017 to reteam. Intervention/Goal/Outcome:: Reteam - Discharge Plan Discharge Plan: Home with significant other/family, Home with services - Provider Provider: Tracy Joseph RNpressing department supervisor Plan - Discharge Plan Estimated Date of Discharge: 07/06/17 Discharge to: Subacute
--- NOTE | 2017-06-27 16:07 | CP.PCM.PN ---
Subjective - Date & Time of Evaluation Date of Evaluation: 06/27/17 Time of Evaluation: 09:50 - Subjective Subjective: patient seen and examined with attending afebrile, but still with elevated SBP Denies Cp, SOB, cough, chills, N/V, abdominal pain no events overnight Objective - Vital Signs/Intake and Output Vital Signs (last 24 hours): Temp Pulse Resp BP Pulse Ox 98.1 F 60 20 151/76 H 96 06/27/17 09:02 06/27/17 13:13 06/27/17 09:02 06/27/17 13:13 06/27/17 09:02 - Medications Medications: Current Medications Albuterol/Ipratropium (Duoneb 3 Mg/0.5 Mg (3 Ml) Ud) 3 ml INH RTID [facility] Last Admin: 06/27/17 13:24 Dose: Not Given Allopurinol (Zyloprim) 100 mg PO DAILY [facility] Last Admin: 06/27/17 08:47 Dose: 100 mg Aspirin (Ecotrin) 81 mg PO DAILY [facility] Last Admin: 06/27/17 08:46 Dose: 81 mg Atenolol (Tenormin) 25 mg PO DAILY [facility] Last Admin: 06/27/17 08:47 Dose: 25 mg Atorvastatin Calcium (Lipitor) 80 mg PO DIN [facility] Last Admin: 06/26/17 16:31 Dose: 80 mg Clopidogrel Bisulfate (Plavix) 75 mg PO DAILY [facility] Last Admin: 06/27/17 08:46 Dose: 75 mg Colchicine (Colchicine) 0.6 mg PO DAILY PRN PRN Reason: Pain, Mild (1-3) Last Admin: 06/24/17 08:32 Dose: 0.6 mg Docusate Sodium (Colace) 100 mg PO BID [facility] Last Admin: 06/27/17 08:46 Dose: 100 mg Fluticasone Propionate (Flonase) 1 spr JASMYN BID [facility] Last Admin: 06/27/17 08:46 Dose: 1 spr Gabapentin (Neurontin) 100 mg PO DAILY [facility] Last Admin: 06/27/17 08:47 Dose: 100 mg Gabapentin (Neurontin) 600 mg PO HS [facility] Last Admin: 06/26/17 21:36 Dose: 600 mg Hydralazine HCl (Apresoline) 10 mg PO Q8 [facility] Last Admin: 06/27/17 13:13 Dose: 10 mg Levothyroxine Sodium (Synthroid) 50 mcg PO DAILY@0630 [facility] Last Admin: 06/27/17 06:11 Dose: 50 mcg Meclizine HCl (Antivert) 25 mg PO TID PRN PRN Reason: Dizziness Last Admin: 06/25/17 15:20 Dose: 25 mg Pantoprazole Sodium (Protonix Ec Tab) 40 mg PO 0600 [facility] Last Admin: 06/27/17 06:11 Dose: 40 mg Polyethylene Glycol (Miralax) 17 gm PO HS PRN PRN Reason: Constipation Last Admin: 06/21/17 21:18 Dose: 17 gm Sennosides (Senokot Tab) 17.2 mg PO HS [facility] Last Admin: 06/27/17 00:01 Dose: Not Given Sertraline HCl (Zoloft) 50 mg PO DAILY [facility] Last Admin: 06/27/17 08:47 Dose: 50 mg Verapamil HCl (Calan Sr Capsule) 120 mg PO DAILY [facility] - Labs Labs: 06/20/17 15:25 06/20/17 15:25 - Additional Findings Additional findings: Constitutional Appears: No Acute Distress - ENT Exam ENT Exam: Mucous Membranes Moist - Respiratory Exam Respiratory Exam: Clear to Ausculation Bilateral, NORMAL BREATHING PATTERN - Cardiovascular Exam Cardiovascular Exam: REGULAR RHYTHM, +S1, +S2 - GI/Abdominal Exam GI & Abdominal Exam: Soft, Normal Bowel Sounds. absent: Guarding, Rigid, Tenderness - Extremities Exam Extremities Exam: Normal Inspection. 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
--- NOTE | 2017-06-27 18:55 | CP.PCM.PN ---
Subjective - Date & Time of Evaluation Date of Evaluation: 06/27/17 Time of Evaluation: 18:54 - Subjective Subjective: Patient seen in PT gym doing ok some limited insight affecting safety will need to go to [facility] he is in agreement with this plan and remains motivated no pain at this point continue current care Objective - Vital Signs/Intake and Output Vital Signs (last 24 hours): Temp Pulse Resp BP Pulse Ox 98.1 F 57 L 20 151/76 H 98 06/27/17 09:02 06/27/17 17:01 06/27/17 09:02 06/27/17 13:13 06/27/17 17:01 - Medications Medications: Current Medications Albuterol/Ipratropium (Duoneb 3 Mg/0.5 Mg (3 Ml) Ud) 3 ml INH RTID [facility] Last Admin: 06/27/17 13:24 Dose: Not Given Allopurinol (Zyloprim) 100 mg PO DAILY [facility] Last Admin: 06/27/17 08:47 Dose: 100 mg Aspirin (Ecotrin) 81 mg PO DAILY [facility] Last Admin: 06/27/17 08:46 Dose: 81 mg Atenolol (Tenormin) 25 mg PO DAILY [facility] Last Admin: 06/27/17 08:47 Dose: 25 mg Atorvastatin Calcium (Lipitor) 80 mg PO DIN [facility] Last Admin: 06/27/17 17:33 Dose: 80 mg Clopidogrel Bisulfate (Plavix) 75 mg PO DAILY [facility] Last Admin: 06/27/17 08:46 Dose: 75 mg Colchicine (Colchicine) 0.6 mg PO DAILY PRN PRN Reason: Pain, Mild (1-3) Last Admin: 06/24/17 08:32 Dose: 0.6 mg Docusate Sodium (Colace) 100 mg PO BID [facility] Last Admin: 06/27/17 17:33 Dose: 100 mg Fluticasone Propionate (Flonase) 1 spr JASMYN BID [facility] Last Admin: 06/27/17 17:33 Dose: 1 spr Gabapentin (Neurontin) 100 mg PO DAILY [facility] Last Admin: 06/27/17 08:47 Dose: 100 mg Gabapentin (Neurontin) 600 mg PO HS [facility] Last Admin: 06/26/17 21:36 Dose: 600 mg Hydralazine HCl (Apresoline) 10 mg PO Q8 [facility] Last Admin: 06/27/17 13:13 Dose: 10 mg Levothyroxine Sodium (Synthroid) 50 mcg PO DAILY@0630 [facility] Last Admin: 06/27/17 06:11 Dose: 50 mcg Meclizine HCl (Antivert) 25 mg PO TID PRN PRN Reason: Dizziness Last Admin: 06/25/17 15:20 Dose: 25 mg Pantoprazole Sodium (Protonix Ec Tab) 40 mg PO 0600 [facility] Last Admin: 06/27/17 06:11 Dose: 40 mg Polyethylene Glycol (Miralax) 17 gm PO HS PRN PRN Reason: Constipation Last Admin: 06/21/17 21:18 Dose: 17 gm Sennosides (Senokot Tab) 17.2 mg PO HS [facility] Last Admin: 06/27/17 00:01 Dose: Not Given Sertraline HCl (Zoloft) 50 mg PO DAILY [facility] Last Admin: 06/27/17 08:47 Dose: 50 mg Verapamil HCl (Calan Sr Tab) 120 mg PO DAILY [facility] - Labs Labs: 06/20/17 15:25 06/20/17 15:25
[2017-06-28] MEDS: Levothyroxine 50 MCG TAB PO SCH (06:54)
[2017-06-28] MEDS: Pantoprazole 40 mg EC Tab PO SCH (06:54)
[2017-06-28] MEDS: Albuterol-Ipratrop 3 mg / 0.5 (3 ml) UD INH SCH ×3 (08:08→19:11)
[2017-06-28] MEDS: Verapamil 120 mg ER Tab PO SCH (08:54)
--- NOTE | 2017-06-28 14:51 | CP.PCM.PN ---
Subjective - Date & Time of Evaluation Date of Evaluation: 06/28/17 Time of Evaluation: 11:00 - Subjective Subjective: no acute neck or back pain Objective - Vital Signs/Intake and Output Vital Signs (last 24 hours): Temp Pulse Resp BP Pulse Ox 97.7 F 60 18 142/76 94 L 06/27/17 20:51 06/28/17 13:11 06/28/17 08:25 06/28/17 13:11 06/27/17 20:51 - Medications Medications: Current Medications Albuterol/Ipratropium (Duoneb 3 Mg/0.5 Mg (3 Ml) Ud) 3 ml INH RTID [facility] Last Admin: 06/28/17 14:00 Dose: 3 ml Allopurinol (Zyloprim) 100 mg PO DAILY [facility] Last Admin: 06/28/17 08:55 Dose: 100 mg Aspirin (Ecotrin) 81 mg PO DAILY [facility] Last Admin: 06/28/17 08:54 Dose: 81 mg Atenolol (Tenormin) 25 mg PO DAILY [facility] Last Admin: 06/28/17 08:55 Dose: 25 mg Atorvastatin Calcium (Lipitor) 80 mg PO DIN [facility] Last Admin: 06/27/17 17:33 Dose: 80 mg Clopidogrel Bisulfate (Plavix) 75 mg PO DAILY [facility] Last Admin: 06/28/17 08:54 Dose: 75 mg Colchicine (Colchicine) 0.6 mg PO DAILY PRN PRN Reason: Pain, Mild (1-3) Last Admin: 06/24/17 08:32 Dose: 0.6 mg Docusate Sodium (Colace) 100 mg PO BID [facility] Last Admin: 06/28/17 08:55 Dose: 100 mg Fluticasone Propionate (Flonase) 1 spr JASMYN BID [facility] Last Admin: 06/28/17 08:53 Dose: 1 spr Gabapentin (Neurontin) 600 mg PO HS [facility] Last Admin: 06/27/17 21:52 Dose: 600 mg Gabapentin (Neurontin) 300 mg PO DAILY [facility] Hydralazine HCl (Apresoline) 25 mg PO Q8 [facility] Last Admin: 06/28/17 13:11 Dose: 25 mg Levothyroxine Sodium (Synthroid) 50 mcg PO DAILY@0630 [facility] Last Admin: 06/28/17 06:54 Dose: 50 mcg Meclizine HCl (Antivert) 25 mg PO TID PRN PRN Reason: Dizziness Last Admin: 06/25/17 15:20 Dose: 25 mg Multivitamins/Minerals (Therapeutic-M Tab) 1 tab PO DAILY [facility] Pantoprazole Sodium (Protonix Ec Tab) 40 mg PO 0600 [facility] Last Admin: 06/28/17 06:54 Dose: 40 mg Polyethylene Glycol (Miralax) 17 gm PO HS PRN PRN Reason: Constipation Last Admin: 06/21/17 21:18 Dose: 17 gm Sennosides (Senokot Tab) 17.2 mg PO HS [facility] Last Admin: 06/27/17 21:52 Dose: 17.2 mg Sertraline HCl (Zoloft) 50 mg PO DAILY [facility] Last Admin: 06/28/17 08:54 Dose: 50 mg Verapamil HCl (Calan Sr Tab) 120 mg PO DAILY [facility] Last Admin: 06/28/17 08:54 Dose: 120 mg - Labs Labs: 06/20/17 15:25 06/20/17 15:25 - Head Exam Head Exam: ATRAUMATIC, NORMAL INSPECTION, NORMOCEPHALIC - Eye Exam Eye Exam: EOMI, Normal appearance, PERRL Pupil Exam: NORMAL ACCOMODATION - ENT Exam ENT Exam: Mucous Membranes Moist, Normal Exam - Neck Exam Neck Exam: Normal Inspection - Respiratory Exam Respiratory Exam: NORMAL BREATHING PATTERN - Cardiovascular Exam Cardiovascular Exam: REGULAR RHYTHM - GI/Abdominal Exam GI & Abdominal Exam: Normal Bowel Sounds - Rectal Exam Rectal Exam: NORMAL INSPECTION - Exam External exam: NORMAL EXTERNAL EXAM - Extremities Exam Extremities Exam: Normal Capillary Refill, Normal Inspection - Back Exam Back Exam: NORMAL INSPECTION - Neurological Exam Neurological Exam: Alert, Awake Neuro motor strength exam: Left Upper Extremity: 3, Right Upper Extremity: 3, Left Lower Extremity: 3, Right Lower Extremity: 3 - Psychiatric Exam Psychiatric exam: Normal Affect, Normal Mood - Skin Skin Exam: Dry, Intact Assessment and Plan (1) Dizziness Status: Acute (2) Hyperthyroidism Status: Acute (3) Right pontine stroke Assessment & Plan: plan for physical, occupational, rec, covering for Dr Min Status: Acute (4) Sprain of knee Status: Acute
[2017-06-29] MEDS: Pantoprazole 40 mg EC Tab PO SCH (06:17)
[2017-06-29] MEDS: Levothyroxine 50 MCG TAB PO SCH (06:17)
[2017-06-29] MEDS: Albuterol-Ipratrop 3 mg / 0.5 (3 ml) UD INH SCH ×4 (08:03→19:32)
[2017-06-29] MEDS: Verapamil 120 mg ER Tab PO SCH (08:32)
[2017-06-29] MEDS: Multivitamin With Minerals Tab PO SCH (08:33)
--- NOTE | 2017-06-29 13:44 | CP.PCM.PN ---
Subjective - Date & Time of Evaluation Date of Evaluation: 06/29/17 Time of Evaluation: 10:00 - Subjective Subjective: no acute complaints of neck or back pain Objective - Vital Signs/Intake and Output Vital Signs (last 24 hours): Temp Pulse Resp BP Pulse Ox 97.8 F 71 20 157/84 H 95 06/29/17 08:22 06/29/17 08:33 06/29/17 08:22 06/29/17 08:33 06/29/17 08:22 - Medications Medications: Current Medications Albuterol/Ipratropium (Duoneb 3 Mg/0.5 Mg (3 Ml) Ud) 3 ml INH RTID [facility] Last Admin: 06/29/17 12:50 Dose: 3 ml Allopurinol (Zyloprim) 100 mg PO DAILY [facility] Last Admin: 06/29/17 08:33 Dose: 100 mg Aspirin (Ecotrin) 81 mg PO DAILY [facility] Last Admin: 06/29/17 08:33 Dose: 81 mg Atenolol (Tenormin) 25 mg PO DAILY [facility] Last Admin: 06/29/17 08:33 Dose: 25 mg Atorvastatin Calcium (Lipitor) 80 mg PO DIN [facility] Last Admin: 06/28/17 16:55 Dose: 80 mg Clopidogrel Bisulfate (Plavix) 75 mg PO DAILY [facility] Last Admin: 06/29/17 08:35 Dose: 75 mg Colchicine (Colchicine) 0.6 mg PO DAILY PRN PRN Reason: Pain, Mild (1-3) Last Admin: 06/24/17 08:32 Dose: 0.6 mg Docusate Sodium (Colace) 100 mg PO BID [facility] Last Admin: 06/29/17 08:32 Dose: 100 mg Fluticasone Propionate (Flonase) 1 spr JASMYN BID [facility] Last Admin: 06/29/17 08:34 Dose: 1 spr Gabapentin (Neurontin) 600 mg PO HS [facility] Last Admin: 06/28/17 21:21 Dose: 600 mg Gabapentin (Neurontin) 300 mg PO DAILY [facility] Last Admin: 06/29/17 08:34 Dose: 300 mg Hydralazine HCl (Apresoline) 25 mg PO Q8 [facility] Last Admin: 06/29/17 06:17 Dose: 25 mg Levothyroxine Sodium (Synthroid) 50 mcg PO DAILY@0630 [facility] Last Admin: 08/24/17 06:17 Dose: 50 mcg Meclizine HCl (Antivert) 25 mg PO TID PRN PRN Reason: Dizziness Last Admin: 06/25/17 15:20 Dose: 25 mg Multivitamins/Minerals (Therapeutic-M Tab) 1 tab PO DAILY [facility] Last Admin: 06/29/17 08:33 Dose: 1 tab Pantoprazole Sodium (Protonix Ec Tab) 40 mg PO 0600 [facility] Last Admin: 06/29/17 06:17 Dose: 40 mg Polyethylene Glycol (Miralax) 17 gm PO HS PRN PRN Reason: Constipation Last Admin: 06/21/17 21:18 Dose: 17 gm Sennosides (Senokot Tab) 17.2 mg PO HS [facility] Last Admin: 06/28/17 21:21 Dose: 17.2 mg Sertraline HCl (Zoloft) 50 mg PO DAILY [facility] Last Admin: 06/29/17 08:35 Dose: 50 mg Verapamil HCl (Calan Sr Tab) 120 mg PO DAILY [facility] Last Admin: 06/29/17 08:32 Dose: 120 mg - Labs Labs: 06/20/17 15:25 06/20/17 15:25 - Head Exam Head Exam: ATRAUMATIC, NORMAL INSPECTION, NORMOCEPHALIC - Eye Exam Eye Exam: EOMI, Normal appearance, PERRL Pupil Exam: NORMAL ACCOMODATION - ENT Exam ENT Exam: Mucous Membranes Moist, Normal Exam - Neck Exam Neck Exam: Normal Inspection - Respiratory Exam Respiratory Exam: NORMAL BREATHING PATTERN - Cardiovascular Exam Cardiovascular Exam: REGULAR RHYTHM - GI/Abdominal Exam GI & Abdominal Exam: Soft - Rectal Exam Rectal Exam: NORMAL INSPECTION - Exam External exam: NORMAL EXTERNAL EXAM - Extremities Exam Extremities Exam: Normal Capillary Refill - Back Exam Back Exam: NORMAL INSPECTION - Neurological Exam Neurological Exam: Alert, Awake Neuro motor strength exam: Left Upper Extremity: 3, Right Upper Extremity: 3, Left Lower Extremity: 3, Right Lower Extremity: 3 - Psychiatric Exam Psychiatric exam: Normal Affect, Normal Mood - Skin Skin Exam: Dry, Intact Assessment and Plan (1) Dizziness Status: Acute (2) Hyperthyroidism Status: Acute (3) Right pontine stroke Assessment & Plan: plan for Pt Ot rec covering for Dr francois Status: Acute (4) Sprain of knee Status: Acute
[2017-06-30] MEDS: Pantoprazole 40 mg EC Tab PO SCH (05:56)
[2017-06-30] MEDS: Levothyroxine 50 MCG TAB PO SCH (05:57)
[2017-06-30] MEDS: Albuterol-Ipratrop 3 mg / 0.5 (3 ml) UD INH SCH ×3 (08:06→19:20)
[2017-06-30] MEDS: Verapamil 120 mg ER Tab PO SCH (08:13)
[2017-06-30] MEDS: Multivitamin With Minerals Tab PO SCH (08:17)
--- NOTE | 2017-06-30 10:08 | CP.PCM.CON ---
History of Present Illness - History of Present Illness History of Present Illness: Pt seen for sup therapy 8-8:20. Pt discussed continued frustration with initial treatment at [place], thinking things would be different if he had an MRI in the ER. Pt spoke of suspicion, lack of trust and doubt in current care. Reassurance provided. Pt able to acknowledge gains and current positive treatment, pt focused on continued therapy and return to lifestyle/independant. plan: Continued Sup therapy Past Patient History - Infectious Disease Hx of Infectious Diseases: None - Tetanus Immunizations Tetanus Immunization: Unknown - Past Medical History & Family History Past Medical History?: Yes - Past Social History Smoking Status: Former Smoker Home Situation {Lives}: Alone - CARDIAC Hx Hypertension: Yes - PULMONARY Hx Respiratory Disorders: Yes Hx Sleep Apnea: Yes Other/Comment: uses BPAP - NEUROLOGICAL Hx Neurological Disorder: No - HEENT Hx Cataracts: Yes (b/l cataract removal) Other/Comment: tonsillectomy - RENAL Hx Chronic Kidney Disease: No - ENDOCRINE/METABOLIC Hx Hypothyroidism: Yes - HEMATOLOGICAL/ONCOLOGICAL Hx AIDS: No Hx Human Immunodeficiency Virus (HIV): No - INTEGUMENTARY Hx Dermatological Problems: No - MUSCULOSKELETAL/RHEUMATOLOGICAL Hx Falls: No - GASTROINTESTINAL Other/Comment: inguinal hernia repair - GENITOURINARY/GYNECOLOGICAL Hx Genitourinary Disorders: No - PSYCHIATRIC Hx Depression: Yes Hx Substance Use: No - SURGICAL HISTORY Hx Cataract Extraction: Yes (b/l) Hx Tonsillectomy: Yes Other/Comment: goiter removed, sinus surgery(Polyps). Inguinal Hernia. - ANESTHESIA Hx Anesthesia: Yes Hx Anesthesia Reactions: No Hx Malignant Hyperthermia: No Meds Allergies/Adverse Reactions: Allergies Allergy/AdvReac Type Severity Reaction Status Date / Time No Known Allergies Allergy Verified 06/19/17 21:26 - Medications Medications: Current Medications Albuterol/Ipratropium (Duoneb 3 Mg/0.5 Mg (3 Ml) Ud) 3 ml INH RTID [facility] Last Admin: 06/30/17 08:06 Dose: 3 ml Allopurinol (Zyloprim) 100 mg PO DAILY [facility] Last Admin: 06/30/17 08:18 Dose: 100 mg Aspirin (Ecotrin) 81 mg PO DAILY [facility] Last Admin: 06/30/17 08:14 Dose: 81 mg Atenolol (Tenormin) 25 mg PO DAILY [facility] Last Admin: 06/30/17 08:16 Dose: 25 mg Atorvastatin Calcium (Lipitor) 80 mg PO DIN [facility] Last Admin: 06/29/17 17:03 Dose: 80 mg Clopidogrel Bisulfate (Plavix) 75 mg PO DAILY [facility] Last Admin: 06/30/17 08:15 Dose: 75 mg Colchicine (Colchicine) 0.6 mg PO DAILY PRN PRN Reason: Pain, Mild (1-3) Last Admin: 06/24/17 08:32 Dose: 0.6 mg Docusate Sodium (Colace) 100 mg PO BID [facility] Last Admin: 06/30/17 08:13 Dose: 100 mg Fluticasone Propionate (Flonase) 1 spr JASMYN BID [facility] Last Admin: 06/30/17 08:11 Dose: 1 spr Gabapentin (Neurontin) 600 mg PO HS [facility] Last Admin: 06/29/17 21:07 Dose: 600 mg Gabapentin (Neurontin) 300 mg PO DAILY [facility] Last Admin: 06/30/17 08:14 Dose: 300 mg Hydralazine HCl (Apresoline) 25 mg PO Q8 [facility] Last Admin: 06/30/17 05:56 Dose: 25 mg Levothyroxine Sodium (Synthroid) 50 mcg PO DAILY@0630 [facility] Last Admin: 06/30/17 05:57 Dose: 50 mcg Meclizine HCl (Antivert) 25 mg PO TID PRN PRN Reason: Dizziness Last Admin: 06/25/17 15:20 Dose: 25 mg Multivitamins/Minerals (Therapeutic-M Tab) 1 tab PO DAILY [facility] Last Admin: 06/30/17 08:17 Dose: 1 tab Pantoprazole Sodium (Protonix Ec Tab) 40 mg PO 0600 [facility] Last Admin: 06/30/17 05:56 Dose: 40 mg Polyethylene Glycol (Miralax) 17 gm PO HS PRN PRN Reason: Constipation Last Admin: 06/21/17 21:18 Dose: 17 gm Sennosides (Senokot Tab) 17.2 mg PO HS [facility] Last Admin: 06/29/17 21:06 Dose: 17.2 mg Sertraline HCl (Zoloft) 50 mg PO DAILY [facility] Last Admin: 06/30/17 08:17 Dose: 50 mg Verapamil HCl (Calan Sr Tab) 120 mg PO DAILY [facility] Last Admin: 06/30/17 08:13 Dose: 120 mg Results - Vital Signs Recent Vital Signs: Last Vital Signs Temp 97.7 F 06/30/17 08:00 Pulse 64 06/30/17 08:16 Resp 22 06/30/17 08:00 BP 173/83 H 06/30/17 08:16 Pulse Ox 99 06/30/17 08:00 - Labs Result Diagrams: 06/20/17 15:25 06/20/17 15:25
--- NOTE | 2017-06-30 10:18 | CP.PCM.PN ---
Subjective - Date & Time of Evaluation Date of Evaluation: 06/25/17 Time of Evaluation: 10:00 - Subjective Subjective: Patient remains stable Has numbness on the left hand Objective - Vital Signs/Intake and Output Vital Signs (last 24 hours): Temp Pulse Resp BP Pulse Ox 97.7 F 64 22 173/83 H 99 06/30/17 08:00 06/30/17 08:16 06/30/17 08:00 06/30/17 08:16 06/30/17 08:00 - Medications Medications: Current Medications Albuterol/Ipratropium (Duoneb 3 Mg/0.5 Mg (3 Ml) Ud) 3 ml INH RTID [facility] Last Admin: 06/30/17 08:06 Dose: 3 ml Allopurinol (Zyloprim) 100 mg PO DAILY [facility] Last Admin: 06/30/17 08:18 Dose: 100 mg Aspirin (Ecotrin) 81 mg PO DAILY [facility] Last Admin: 06/30/17 08:14 Dose: 81 mg Atenolol (Tenormin) 25 mg PO DAILY [facility] Last Admin: 06/30/17 08:16 Dose: 25 mg Atorvastatin Calcium (Lipitor) 80 mg PO DIN [facility] Last Admin: 06/29/17 17:03 Dose: 80 mg Clopidogrel Bisulfate (Plavix) 75 mg PO DAILY [facility] Last Admin: 06/30/17 08:15 Dose: 75 mg Colchicine (Colchicine) 0.6 mg PO DAILY PRN PRN Reason: Pain, Mild (1-3) Last Admin: 06/24/17 08:32 Dose: 0.6 mg Docusate Sodium (Colace) 100 mg PO BID [facility] Last Admin: 06/30/17 08:13 Dose: 100 mg Fluticasone Propionate (Flonase) 1 spr JASMYN BID [facility] Last Admin: 06/30/17 08:11 Dose: 1 spr Gabapentin (Neurontin) 600 mg PO HS [facility] Last Admin: 06/29/17 21:07 Dose: 600 mg Gabapentin (Neurontin) 300 mg PO DAILY [facility] Last Admin: 06/30/17 08:14 Dose: 300 mg Hydralazine HCl (Apresoline) 25 mg PO Q8 [facility] Last Admin: 06/30/17 05:56 Dose: 25 mg Levothyroxine Sodium (Synthroid) 50 mcg PO DAILY@0630 [facility] Last Admin: 06/30/17 05:57 Dose: 50 mcg Meclizine HCl (Antivert) 25 mg PO TID PRN PRN Reason: Dizziness Last Admin: 06/25/17 15:20 Dose: 25 mg Multivitamins/Minerals (Therapeutic-M Tab) 1 tab PO DAILY [facility] Last Admin: 06/30/17 08:17 Dose: 1 tab Pantoprazole Sodium (Protonix Ec Tab) 40 mg PO 0600 [facility] Last Admin: 06/30/17 05:56 Dose: 40 mg Polyethylene Glycol (Miralax) 17 gm PO HS PRN PRN Reason: Constipation Last Admin: 06/21/17 21:18 Dose: 17 gm Sennosides (Senokot Tab) 17.2 mg PO HS [facility] Last Admin: 06/29/17 21:06 Dose: 17.2 mg Sertraline HCl (Zoloft) 50 mg PO DAILY [facility] Last Admin: 06/30/17 08:17 Dose: 50 mg Verapamil HCl (Calan Sr Tab) 120 mg PO DAILY [facility] Last Admin: 06/30/17 08:13 Dose: 120 mg - Labs Labs: 06/20/17 15:25 06/20/17 15:25
--- NOTE | 2017-06-30 10:19 | CP.PCM.PN ---
Subjective - Date & Time of Evaluation Date of Evaluation: 06/26/17 Time of Evaluation: 10:30 - Subjective Subjective: Patient is doing well with PT Has minimal pain n the left trap Objective - Vital Signs/Intake and Output Vital Signs (last 24 hours): Temp Pulse Resp BP Pulse Ox 97.7 F 64 22 173/83 H 99 06/30/17 08:00 06/30/17 08:16 06/30/17 08:00 06/30/17 08:16 06/30/17 08:00 - Medications Medications: Current Medications Albuterol/Ipratropium (Duoneb 3 Mg/0.5 Mg (3 Ml) Ud) 3 ml INH RTID [facility] Last Admin: 06/30/17 08:06 Dose: 3 ml Allopurinol (Zyloprim) 100 mg PO DAILY [facility] Last Admin: 06/30/17 08:18 Dose: 100 mg Aspirin (Ecotrin) 81 mg PO DAILY [facility] Last Admin: 06/30/17 08:14 Dose: 81 mg Atenolol (Tenormin) 25 mg PO DAILY [facility] Last Admin: 06/30/17 08:16 Dose: 25 mg Atorvastatin Calcium (Lipitor) 80 mg PO DIN [facility] Last Admin: 06/29/17 17:03 Dose: 80 mg Clopidogrel Bisulfate (Plavix) 75 mg PO DAILY [facility] Last Admin: 06/30/17 08:15 Dose: 75 mg Colchicine (Colchicine) 0.6 mg PO DAILY PRN PRN Reason: Pain, Mild (1-3) Last Admin: 06/24/17 08:32 Dose: 0.6 mg Docusate Sodium (Colace) 100 mg PO BID [facility] Last Admin: 06/30/17 08:13 Dose: 100 mg Fluticasone Propionate (Flonase) 1 spr JASMYN BID [facility] Last Admin: 06/30/17 08:11 Dose: 1 spr Gabapentin (Neurontin) 600 mg PO HS [facility] Last Admin: 06/29/17 21:07 Dose: 600 mg Gabapentin (Neurontin) 300 mg PO DAILY [facility] Last Admin: 06/30/17 08:14 Dose: 300 mg Hydralazine HCl (Apresoline) 25 mg PO Q8 [facility] Last Admin: 06/30/17 05:56 Dose: 25 mg Levothyroxine Sodium (Synthroid) 50 mcg PO DAILY@0630 [facility] Last Admin: 06/30/17 05:57 Dose: 50 mcg Meclizine HCl (Antivert) 25 mg PO TID PRN PRN Reason: Dizziness Last Admin: 06/25/17 15:20 Dose: 25 mg Multivitamins/Minerals (Therapeutic-M Tab) 1 tab PO DAILY [facility] Last Admin: 06/30/17 08:17 Dose: 1 tab Pantoprazole Sodium (Protonix Ec Tab) 40 mg PO 0600 [facility] Last Admin: 06/30/17 05:56 Dose: 40 mg Polyethylene Glycol (Miralax) 17 gm PO HS PRN PRN Reason: Constipation Last Admin: 06/21/17 21:18 Dose: 17 gm Sennosides (Senokot Tab) 17.2 mg PO HS [facility] Last Admin: 06/29/17 21:06 Dose: 17.2 mg Sertraline HCl (Zoloft) 50 mg PO DAILY [facility] Last Admin: 06/30/17 08:17 Dose: 50 mg Verapamil HCl (Calan Sr Tab) 120 mg PO DAILY [facility] Last Admin: 06/30/17 08:13 Dose: 120 mg - Labs Labs: 06/20/17 15:25 06/20/17 15:25
--- NOTE | 2017-06-30 10:20 | CP.PCM.PN ---
Subjective - Date & Time of Evaluation Date of Evaluation: 06/28/17 Time of Evaluation: 10:00 - Subjective Subjective: Patient remains stable BP has been stable Has mild l constipation Objective - Vital Signs/Intake and Output Vital Signs (last 24 hours): Temp Pulse Resp BP Pulse Ox 97.7 F 64 22 173/83 H 99 06/30/17 08:00 06/30/17 08:16 06/30/17 08:00 06/30/17 08:16 06/30/17 08:00 - Medications Medications: Current Medications Albuterol/Ipratropium (Duoneb 3 Mg/0.5 Mg (3 Ml) Ud) 3 ml INH RTID [facility] Last Admin: 06/30/17 08:06 Dose: 3 ml Allopurinol (Zyloprim) 100 mg PO DAILY [facility] Last Admin: 06/30/17 08:18 Dose: 100 mg Aspirin (Ecotrin) 81 mg PO DAILY [facility] Last Admin: 06/30/17 08:14 Dose: 81 mg Atenolol (Tenormin) 25 mg PO DAILY [facility] Last Admin: 06/30/17 08:16 Dose: 25 mg Atorvastatin Calcium (Lipitor) 80 mg PO DIN [facility] Last Admin: 06/29/17 17:03 Dose: 80 mg Clopidogrel Bisulfate (Plavix) 75 mg PO DAILY [facility] Last Admin: 06/30/17 08:15 Dose: 75 mg Colchicine (Colchicine) 0.6 mg PO DAILY PRN PRN Reason: Pain, Mild (1-3) Last Admin: 06/24/17 08:32 Dose: 0.6 mg Docusate Sodium (Colace) 100 mg PO BID [facility] Last Admin: 06/30/17 08:13 Dose: 100 mg Fluticasone Propionate (Flonase) 1 spr JASMYN BID [facility] Last Admin: 06/30/17 08:11 Dose: 1 spr Gabapentin (Neurontin) 600 mg PO HS [facility] Last Admin: 06/29/17 21:07 Dose: 600 mg Gabapentin (Neurontin) 300 mg PO DAILY [facility] Last Admin: 06/30/17 08:14 Dose: 300 mg Hydralazine HCl (Apresoline) 25 mg PO Q8 [facility] Last Admin: 06/30/17 05:56 Dose: 25 mg Levothyroxine Sodium (Synthroid) 50 mcg PO DAILY@0630 [facility] Last Admin: 06/30/17 05:57 Dose: 50 mcg Meclizine HCl (Antivert) 25 mg PO TID PRN PRN Reason: Dizziness Last Admin: 06/25/17 15:20 Dose: 25 mg Multivitamins/Minerals (Therapeutic-M Tab) 1 tab PO DAILY [facility] Last Admin: 06/30/17 08:17 Dose: 1 tab Pantoprazole Sodium (Protonix Ec Tab) 40 mg PO 0600 [facility] Last Admin: 06/30/17 05:56 Dose: 40 mg Polyethylene Glycol (Miralax) 17 gm PO HS PRN PRN Reason: Constipation Last Admin: 06/21/17 21:18 Dose: 17 gm Sennosides (Senokot Tab) 17.2 mg PO HS [facility] Last Admin: 06/29/17 21:06 Dose: 17.2 mg Sertraline HCl (Zoloft) 50 mg PO DAILY [facility] Last Admin: 06/30/17 08:17 Dose: 50 mg Verapamil HCl (Calan Sr Tab) 120 mg PO DAILY [facility] Last Admin: 06/30/17 08:13 Dose: 120 mg - Labs Labs: 06/20/17 15:25 06/20/17 15:25
--- NOTE | 2017-06-30 10:21 | CP.PCM.PN ---
Subjective - Date & Time of Evaluation Date of Evaluation: 06/29/17 Time of Evaluation: 10:40 - Subjective Subjective: Patient is doing better with PT Claims that the new dose of gabapentin helps him a lot brandee with his neuropathy Objective - Vital Signs/Intake and Output Vital Signs (last 24 hours): Temp Pulse Resp BP Pulse Ox 97.7 F 64 22 173/83 H 99 06/30/17 08:00 06/30/17 08:16 06/30/17 08:00 06/30/17 08:16 06/30/17 08:00 - Medications Medications: Current Medications Albuterol/Ipratropium (Duoneb 3 Mg/0.5 Mg (3 Ml) Ud) 3 ml INH RTID [facility] Last Admin: 06/30/17 08:06 Dose: 3 ml Allopurinol (Zyloprim) 100 mg PO DAILY [facility] Last Admin: 06/30/17 08:18 Dose: 100 mg Aspirin (Ecotrin) 81 mg PO DAILY [facility] Last Admin: 06/30/17 08:14 Dose: 81 mg Atenolol (Tenormin) 25 mg PO DAILY [facility] Last Admin: 06/30/17 08:16 Dose: 25 mg Atorvastatin Calcium (Lipitor) 80 mg PO DIN [facility] Last Admin: 06/29/17 17:03 Dose: 80 mg Clopidogrel Bisulfate (Plavix) 75 mg PO DAILY [facility] Last Admin: 06/30/17 08:15 Dose: 75 mg Colchicine (Colchicine) 0.6 mg PO DAILY PRN PRN Reason: Pain, Mild (1-3) Last Admin: 06/24/17 08:32 Dose: 0.6 mg Docusate Sodium (Colace) 100 mg PO BID [facility] Last Admin: 06/30/17 08:13 Dose: 100 mg Fluticasone Propionate (Flonase) 1 spr JASMYN BID [facility] Last Admin: 06/30/17 08:11 Dose: 1 spr Gabapentin (Neurontin) 600 mg PO HS [facility] Last Admin: 06/29/17 21:07 Dose: 600 mg Gabapentin (Neurontin) 300 mg PO DAILY [facility] Last Admin: 06/30/17 08:14 Dose: 300 mg Hydralazine HCl (Apresoline) 25 mg PO Q8 [facility] Last Admin: 06/30/17 05:56 Dose: 25 mg Levothyroxine Sodium (Synthroid) 50 mcg PO DAILY@0630 [facility] Last Admin: 06/30/17 05:57 Dose: 50 mcg Meclizine HCl (Antivert) 25 mg PO TID PRN PRN Reason: Dizziness Last Admin: 06/25/17 15:20 Dose: 25 mg Multivitamins/Minerals (Therapeutic-M Tab) 1 tab PO DAILY [facility] Last Admin: 06/30/17 08:17 Dose: 1 tab Pantoprazole Sodium (Protonix Ec Tab) 40 mg PO 0600 [facility] Last Admin: 06/30/17 05:56 Dose: 40 mg Polyethylene Glycol (Miralax) 17 gm PO HS PRN PRN Reason: Constipation Last Admin: 06/21/17 21:18 Dose: 17 gm Sennosides (Senokot Tab) 17.2 mg PO HS [facility] Last Admin: 06/29/17 21:06 Dose: 17.2 mg Sertraline HCl (Zoloft) 50 mg PO DAILY [facility] Last Admin: 06/30/17 08:17 Dose: 50 mg Verapamil HCl (Calan Sr Tab) 120 mg PO DAILY [facility] Last Admin: 06/30/17 08:13 Dose: 120 mg - Labs Labs: 06/20/17 15:25 06/20/17 15:25
--- NOTE | 2017-06-30 11:43 | CP.PCM.PN ---
Subjective - Date & Time of Evaluation Date of Evaluation: 06/30/17 Time of Evaluation: 11:41 - Subjective Subjective: Complains of persistent cough with slight whitish phlegm Has no fever Very anxious. Claims to have poor sleep Has problems with Ambien Objective - Vital Signs/Intake and Output Vital Signs (last 24 hours): Temp Pulse Resp BP Pulse Ox 97.7 F 64 22 173/83 H 99 06/30/17 08:00 06/30/17 08:16 06/30/17 08:00 06/30/17 08:16 06/30/17 08:00 - Medications Medications: Current Medications Albuterol/Ipratropium (Duoneb 3 Mg/0.5 Mg (3 Ml) Ud) 3 ml INH RTID [facility] Last Admin: 06/30/17 08:06 Dose: 3 ml Allopurinol (Zyloprim) 100 mg PO DAILY [facility] Last Admin: 06/30/17 08:18 Dose: 100 mg Aspirin (Ecotrin) 81 mg PO DAILY [facility] Last Admin: 06/30/17 08:14 Dose: 81 mg Atenolol (Tenormin) 25 mg PO DAILY [facility] Last Admin: 06/30/17 08:16 Dose: 25 mg Atorvastatin Calcium (Lipitor) 80 mg PO DIN [facility] Last Admin: 06/29/17 17:03 Dose: 80 mg Clopidogrel Bisulfate (Plavix) 75 mg PO DAILY [facility] Last Admin: 06/30/17 08:15 Dose: 75 mg Colchicine (Colchicine) 0.6 mg PO DAILY PRN PRN Reason: Pain, Mild (1-3) Last Admin: 06/24/17 08:32 Dose: 0.6 mg Docusate Sodium (Colace) 100 mg PO BID [facility] Last Admin: 06/30/17 08:13 Dose: 100 mg Fluticasone Propionate (Flonase) 1 spr JASMYN BID [facility] Last Admin: 06/30/17 08:11 Dose: 1 spr Gabapentin (Neurontin) 600 mg PO HS [facility] Last Admin: 06/29/17 21:07 Dose: 600 mg Gabapentin (Neurontin) 300 mg PO DAILY [facility] Last Admin: 06/30/17 08:14 Dose: 300 mg Hydralazine HCl (Apresoline) 25 mg PO Q8 [facility] Last Admin: 06/30/17 05:56 Dose: 25 mg Levothyroxine Sodium (Synthroid) 50 mcg PO DAILY@0630 [facility] Last Admin: 06/30/17 05:57 Dose: 50 mcg Lorazepam (Ativan) 0.5 mg PO BID PRN PRN Reason: Anxiety Meclizine HCl (Antivert) 25 mg PO TID PRN PRN Reason: Dizziness Last Admin: 06/25/17 15:20 Dose: 25 mg Multivitamins/Minerals (Therapeutic-M Tab) 1 tab PO DAILY [facility] Last Admin: 06/30/17 08:17 Dose: 1 tab Pantoprazole Sodium (Protonix Ec Tab) 40 mg PO 0600 [facility] Last Admin: 06/30/17 05:56 Dose: 40 mg Polyethylene Glycol (Miralax) 17 gm PO HS PRN PRN Reason: Constipation Last Admin: 06/21/17 21:18 Dose: 17 gm Promethazine HCl/Codeine (Phenergan/Codeine Oral Syrup) 10 ml PO Q6 PRN PRN Reason: Cough Fluticasone/Salmeterol (Advair Diskus 250/50) 1 puff IH Q12 [facility] Sennosides (Senokot Tab) 17.2 mg PO HS [facility] Last Admin: 06/29/17 21:06 Dose: 17.2 mg Sertraline HCl (Zoloft) 50 mg PO DAILY [facility] Last Admin: 06/30/17 08:17 Dose: 50 mg Verapamil HCl (Calan Sr Tab) 120 mg PO DAILY [facility] Last Admin: 06/30/17 08:13 Dose: 120 mg - Labs Labs: 06/20/17 15:25 06/20/17 15:25 - Head Exam Head Exam: NORMAL INSPECTION - Eye Exam Eye Exam: Normal appearance - ENT Exam ENT Exam: Mucous Membranes Moist - Respiratory Exam Respiratory Exam: Clear to Ausculation Bilateral - Cardiovascular Exam Cardiovascular Exam: REGULAR RHYTHM - GI/Abdominal Exam GI & Abdominal Exam: Normal Bowel Sounds - Neurological Exam Neurological Exam: Awake, Oriented x3 - Psychiatric Exam Psychiatric exam: Normal Mood Assessment and Plan (1) Right pontine stroke Status: Acute (2) Hyperthyroidism Status: Acute (3) Hypertension Status: Acute (4) Cough Status: Acute (5) Nasopharyngitis, chronic Status: Acute - Assessment and Plan (Free Text) Plan: contmed cont tx cont PT cough meds ativan
[2017-06-30] MEDS: Promethazine/Cod 6.25mg-10mg/5ml Syr UD PO PRN ×2 (11:56→22:01)
[2017-06-30] MEDS: Fluticasone-Salmeterol 250-50mcg Diskus IH SCH ×2 (12:53→21:12)
--- NOTE | 2017-06-30 15:33 | RAD ---
HISTORY: cough COMPARISON: No prior. TECHNIQUE: AP and lateral sitting erect views of the chest performed FINDINGS: LUNGS: Poor inspiration with low lung volumes, crowded bronchovascular markings and mild bibasilar atelectasis. Questionable small left effusion. PLEURA: As above. No pneumothorax apparent. CARDIOVASCULAR: Heart appears mildly enlarged. 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 OTHER FINDINGS: None. IMPRESSION: No acute fractures.
--- NOTE | 2017-06-30 16:05 | CP.PCM.PN ---
Subjective - Date & Time of Evaluation Date of Evaluation: 06/30/17 Time of Evaluation: 16:04 - Subjective Subjective: patient continues to be motivated denies sob/cp afebrile continue current care Objective - Vital Signs/Intake and Output Vital Signs (last 24 hours): Temp Pulse Resp BP Pulse Ox 97.7 F 74 22 132/59 L 99 06/30/17 08:00 06/30/17 13:43 06/30/17 08:00 06/30/17 13:43 06/30/17 08:00 - Medications Medications: Current Medications Albuterol/Ipratropium (Duoneb 3 Mg/0.5 Mg (3 Ml) Ud) 3 ml INH RTID [facility] Last Admin: 06/30/17 13:17 Dose: 3 ml Allopurinol (Zyloprim) 100 mg PO DAILY [facility] Last Admin: 06/30/17 08:18 Dose: 100 mg Aspirin (Ecotrin) 81 mg PO DAILY [facility] Last Admin: 06/30/17 08:14 Dose: 81 mg Atenolol (Tenormin) 25 mg PO DAILY [facility] Last Admin: 06/30/17 08:16 Dose: 25 mg Atorvastatin Calcium (Lipitor) 80 mg PO DIN [facility] Last Admin: 06/29/17 17:03 Dose: 80 mg Clopidogrel Bisulfate (Plavix) 75 mg PO DAILY [facility] Last Admin: 06/30/17 08:15 Dose: 75 mg Colchicine (Colchicine) 0.6 mg PO DAILY PRN PRN Reason: Pain, Mild (1-3) Last Admin: 06/24/17 08:32 Dose: 0.6 mg Docusate Sodium (Colace) 100 mg PO BID [facility] Last Admin: 06/30/17 08:13 Dose: 100 mg Fluticasone Propionate (Flonase) 1 spr JASMYN BID [facility] Last Admin: 06/30/17 08:11 Dose: 1 spr Gabapentin (Neurontin) 600 mg PO HS [facility] Last Admin: 06/29/17 21:07 Dose: 600 mg Gabapentin (Neurontin) 300 mg PO DAILY [facility] Last Admin: 06/30/17 08:14 Dose: 300 mg Hydralazine HCl (Apresoline) 25 mg PO Q8 [facility] Last Admin: 06/30/17 13:43 Dose: 25 mg Levothyroxine Sodium (Synthroid) 50 mcg PO DAILY@0630 [facility] Last Admin: 06/30/17 05:57 Dose: 50 mcg Lorazepam (Ativan) 0.5 mg PO BID PRN PRN Reason: Anxiety Meclizine HCl (Antivert) 25 mg PO TID PRN PRN Reason: Dizziness Last Admin: 06/25/17 15:20 Dose: 25 mg Multivitamins/Minerals (Therapeutic-M Tab) 1 tab PO DAILY [facility] Last Admin: 06/30/17 08:17 Dose: 1 tab Pantoprazole Sodium (Protonix Ec Tab) 40 mg PO 0600 [facility] Last Admin: 06/30/17 05:56 Dose: 40 mg Polyethylene Glycol (Miralax) 17 gm PO HS PRN PRN Reason: Constipation Last Admin: 06/21/17 21:18 Dose: 17 gm Promethazine HCl/Codeine (Phenergan/Codeine Oral Syrup) 10 ml PO Q6 PRN PRN Reason: Cough Last Admin: 06/30/17 11:56 Dose: 10 ml Fluticasone/Salmeterol (Advair Diskus 250/50) 1 puff IH Q12 [facility] Last Admin: 06/30/17 12:53 Dose: 1 puff Sennosides (Senokot Tab) 17.2 mg PO HS [facility] Last Admin: 06/29/17 21:06 Dose: 17.2 mg Sertraline HCl (Zoloft) 50 mg PO DAILY [facility] Last Admin: 06/30/17 08:17 Dose: 50 mg Verapamil HCl (Calan Sr Tab) 120 mg PO DAILY [facility] Last Admin: 06/30/17 08:13 Dose: 120 mg - Labs Labs: 06/20/17 15:25 06/20/17 15:25
[2017-07-01] MEDS: Levothyroxine 50 MCG TAB PO SCH (05:58)
[2017-07-01] MEDS: Pantoprazole 40 mg EC Tab PO SCH (05:58)
[2017-07-01] MEDS: Albuterol-Ipratrop 3 mg / 0.5 (3 ml) UD INH SCH ×3 (07:32→19:20)
[2017-07-01] MEDS: Fluticasone-Salmeterol 250-50mcg Diskus IH SCH ×2 (09:00→21:28)
[2017-07-01] MEDS: Verapamil 120 mg ER Tab PO SCH (09:22)
[2017-07-01] MEDS: Multivitamin With Minerals Tab PO SCH (09:24)
--- NOTE | 2017-07-01 11:09 | CP.PCM.PN ---
Subjective - Date & Time of Evaluation Date of Evaluation: 07/01/17 Time of Evaluation: 11:09 - Subjective Subjective: Patient is doing well.Has no chest pain or SOB. Objective - Vital Signs/Intake and Output Vital Signs (last 24 hours): Temp Pulse Resp BP Pulse Ox 97.9 F 74 20 164/84 H 97 07/01/17 09:14 07/01/17 09:23 07/01/17 09:14 07/01/17 09:23 07/01/17 09:14 - Medications Medications: Current Medications Albuterol/Ipratropium (Duoneb 3 Mg/0.5 Mg (3 Ml) Ud) 3 ml INH RTID [facility] Last Admin: 07/01/17 07:32 Dose: 3 ml Allopurinol (Zyloprim) 100 mg PO DAILY [facility] Last Admin: 07/01/17 09:21 Dose: 100 mg Aspirin (Ecotrin) 81 mg PO DAILY [facility] Last Admin: 07/01/17 09:22 Dose: 81 mg Atenolol (Tenormin) 25 mg PO DAILY [facility] Last Admin: 07/01/17 09:23 Dose: 25 mg Atorvastatin Calcium (Lipitor) 80 mg PO DIN [facility] Last Admin: 06/30/17 16:13 Dose: 80 mg Clopidogrel Bisulfate (Plavix) 75 mg PO DAILY [facility] Last Admin: 07/01/17 09:23 Dose: 75 mg Colchicine (Colchicine) 0.6 mg PO DAILY PRN PRN Reason: Pain, Mild (1-3) Last Admin: 06/24/17 08:32 Dose: 0.6 mg Docusate Sodium (Colace) 100 mg PO BID [facility] Last Admin: 07/01/17 09:22 Dose: 100 mg Fluticasone Propionate (Flonase) 1 spr JASMYN BID [facility] Last Admin: 07/01/17 09:00 Dose: 1 spr Gabapentin (Neurontin) 600 mg PO HS [facility] Last Admin: 06/30/17 21:13 Dose: 600 mg Gabapentin (Neurontin) 300 mg PO DAILY [facility] Last Admin: 07/01/17 09:21 Dose: 300 mg Hydralazine HCl (Apresoline) 25 mg PO Q8 [facility] Last Admin: 07/01/17 05:58 Dose: 25 mg Levothyroxine Sodium (Synthroid) 50 mcg PO DAILY@0630 [facility] Last Admin: 07/01/17 05:58 Dose: 50 mcg Lorazepam (Ativan) 0.5 mg PO BID PRN PRN Reason: Anxiety Meclizine HCl (Antivert) 25 mg PO TID PRN PRN Reason: Dizziness Last Admin: 06/25/17 15:20 Dose: 25 mg Multivitamins/Minerals (Therapeutic-M Tab) 1 tab PO DAILY [facility] Last Admin: 07/01/17 09:24 Dose: 1 tab Pantoprazole Sodium (Protonix Ec Tab) 40 mg PO 0600 [facility] Last Admin: 07/01/17 05:58 Dose: 40 mg Polyethylene Glycol (Miralax) 17 gm PO HS PRN PRN Reason: Constipation Last Admin: 06/21/17 21:18 Dose: 17 gm Promethazine HCl/Codeine (Phenergan/Codeine Oral Syrup) 10 ml PO Q6 PRN PRN Reason: Cough Last Admin: 06/30/17 22:01 Dose: 10 ml Fluticasone/Salmeterol (Advair Diskus 250/50) 1 puff IH Q12 [facility] Last Admin: 07/01/17 09:00 Dose: 1 puff Sennosides (Senokot Tab) 17.2 mg PO HS [facility] Last Admin: 06/30/17 21:12 Dose: 17.2 mg Sertraline HCl (Zoloft) 50 mg PO DAILY [facility] Last Admin: 07/01/17 09:24 Dose: 50 mg Verapamil HCl (Calan Sr Tab) 180 mg PO DAILY [facility] - Labs Labs: 06/20/17 15:25 06/20/17 15:25 Assessment and Plan (1) Right pontine stroke Status: Acute (2) Hyperthyroidism Status: Acute (3) Hypertension Status: Acute (4) Cough Status: Acute (5) Nasopharyngitis, chronic Status: Acute
[2017-07-01] MEDS: Verapamil 180 mg ER Tab PO SCH (12:13)
[2017-07-02] MEDS: Levothyroxine 50 MCG TAB PO SCH (06:08)
[2017-07-02] MEDS: Pantoprazole 40 mg EC Tab PO SCH (06:08)
[2017-07-02] MEDS: Albuterol-Ipratrop 3 mg / 0.5 (3 ml) UD INH SCH ×3 (07:24→19:20)
[2017-07-02] MEDS: Fluticasone-Salmeterol 250-50mcg Diskus IH SCH ×2 (09:00→21:08)
[2017-07-02] MEDS: Multivitamin With Minerals Tab PO SCH (09:11)
[2017-07-02] MEDS: Verapamil 180 mg ER Tab PO SCH (09:11)
[2017-07-02] MEDS ORDERED: Promethazine/Cod 6.25mg-10mg/5ml Syr UD PO PRN (18:44)
[2017-07-03] MEDS: Pantoprazole 40 mg EC Tab PO SCH (06:16)
[2017-07-03] MEDS: Levothyroxine 50 MCG TAB PO SCH (06:16)
[2017-07-03] MEDS: Albuterol-Ipratrop 3 mg / 0.5 (3 ml) UD INH SCH ×3 (07:25→19:32)
[2017-07-03] MEDS: Fluticasone-Salmeterol 250-50mcg Diskus IH SCH ×2 (08:39→21:45)
[2017-07-03] MEDS: Verapamil 180 mg ER Tab PO SCH (08:41)
[2017-07-03] MEDS: Multivitamin With Minerals Tab PO SCH (08:42)
--- NOTE | 2017-07-03 10:32 | CP.PCM.PN ---
Subjective - Date & Time of Evaluation Date of Evaluation: 07/02/17 Time of Evaluation: 09:50 - Subjective Subjective: Patient is doing a lot batter except for numbness in the left upper ext. Dong well with PT BP has been stable. Objective - Vital Signs/Intake and Output Vital Signs (last 24 hours): Temp Pulse Resp BP Pulse Ox 97.9 F 67 18 152/57 H 97 07/03/17 08:18 07/03/17 08:18 07/03/17 08:18 07/03/17 08:42 07/03/17 08:18 - Medications Medications: Current Medications Albuterol/Ipratropium (Duoneb 3 Mg/0.5 Mg (3 Ml) Ud) 3 ml INH RTID [facility] Last Admin: 07/03/17 07:25 Dose: 3 ml Allopurinol (Zyloprim) 100 mg PO DAILY [facility] Last Admin: 07/03/17 08:42 Dose: 100 mg Aspirin (Ecotrin) 81 mg PO DAILY [facility] Last Admin: 07/03/17 08:42 Dose: 81 mg Atenolol (Tenormin) 25 mg PO DAILY [facility] Last Admin: 07/03/17 08:42 Dose: 25 mg Atorvastatin Calcium (Lipitor) 80 mg PO DIN [facility] Last Admin: 07/02/17 17:32 Dose: 80 mg Clopidogrel Bisulfate (Plavix) 75 mg PO DAILY [facility] Last Admin: 07/03/17 08:42 Dose: 75 mg Colchicine (Colchicine) 0.6 mg PO DAILY PRN PRN Reason: Pain, Mild (1-3) Last Admin: 06/24/17 08:32 Dose: 0.6 mg Docusate Sodium (Colace) 100 mg PO BID [facility] Last Admin: 07/03/17 08:41 Dose: 100 mg Fluticasone Propionate (Flonase) 1 spr JASMYN BID [facility] Last Admin: 07/03/17 08:40 Dose: 1 spr Gabapentin (Neurontin) 600 mg PO HS [facility] Last Admin: 07/02/17 21:07 Dose: 600 mg Gabapentin (Neurontin) 300 mg PO DAILY [facility] Last Admin: 07/03/17 08:42 Dose: 300 mg Hydralazine HCl (Apresoline) 25 mg PO Q8 [facility] Last Admin: 07/03/17 06:16 Dose: 25 mg Levothyroxine Sodium (Synthroid) 50 mcg PO DAILY@0630 [facility] Last Admin: 07/03/17 06:16 Dose: 50 mcg Lorazepam (Ativan) 0.5 mg PO BID PRN PRN Reason: Anxiety Meclizine HCl (Antivert) 25 mg PO TID PRN PRN Reason: Dizziness Last Admin: 06/25/17 15:20 Dose: 25 mg Multivitamins/Minerals (Therapeutic-M Tab) 1 tab PO DAILY [facility] Last Admin: 07/03/17 08:42 Dose: 1 tab Pantoprazole Sodium (Protonix Ec Tab) 40 mg PO 0600 [facility] Last Admin: 07/03/17 06:16 Dose: 40 mg Polyethylene Glycol (Miralax) 17 gm PO HS PRN PRN Reason: Constipation Last Admin: 06/21/17 21:18 Dose: 17 gm Promethazine HCl/Codeine (Phenergan/Codeine Oral Syrup) 10 ml PO Q6 PRN PRN Reason: Cough Fluticasone/Salmeterol (Advair Diskus 250/50) 1 puff IH Q12 [facility] Last Admin: 07/03/17 08:39 Dose: 1 puff Sennosides (Senokot Tab) 17.2 mg PO HS [facility] Last Admin: 07/02/17 21:09 Dose: 17.2 mg Sertraline HCl (Zoloft) 50 mg PO DAILY [facility] Last Admin: 07/03/17 08:43 Dose: 50 mg Verapamil HCl (Calan Sr Tab) 180 mg PO DAILY [facility] Last Admin: 07/03/17 08:41 Dose: 180 mg - Labs Labs: 06/20/17 15:25 06/20/17 15:25 Assessment and Plan (1) Right pontine stroke Status: Acute (2) Hyperthyroidism Status: Acute (3) Hypertension Status: Acute (4) Cough Status: Acute (5) Nasopharyngitis, chronic Status: Acute
--- NOTE | 2017-07-03 10:32 | CP.PCM.PN ---
Subjective - Date & Time of Evaluation Date of Evaluation: 07/03/17 Time of Evaluation: 10:32 - Subjective Subjective: Patient remains stable Has no chest pain or SOB\ Objective - Vital Signs/Intake and Output Vital Signs (last 24 hours): Temp Pulse Resp BP Pulse Ox 97.9 F 67 18 152/57 H 97 07/03/17 08:18 07/03/17 08:18 07/03/17 08:18 07/03/17 08:42 07/03/17 08:18 - Medications Medications: Current Medications Albuterol/Ipratropium (Duoneb 3 Mg/0.5 Mg (3 Ml) Ud) 3 ml INH RTID [facility] Last Admin: 07/03/17 07:25 Dose: 3 ml Allopurinol (Zyloprim) 100 mg PO DAILY [facility] Last Admin: 07/03/17 08:42 Dose: 100 mg Aspirin (Ecotrin) 81 mg PO DAILY [facility] Last Admin: 07/03/17 08:42 Dose: 81 mg Atenolol (Tenormin) 25 mg PO DAILY [facility] Last Admin: 07/03/17 08:42 Dose: 25 mg Atorvastatin Calcium (Lipitor) 80 mg PO DIN [facility] Last Admin: 07/02/17 17:32 Dose: 80 mg Clopidogrel Bisulfate (Plavix) 75 mg PO DAILY [facility] Last Admin: 07/03/17 08:42 Dose: 75 mg Colchicine (Colchicine) 0.6 mg PO DAILY PRN PRN Reason: Pain, Mild (1-3) Last Admin: 06/24/17 08:32 Dose: 0.6 mg Docusate Sodium (Colace) 100 mg PO BID [facility] Last Admin: 07/03/17 08:41 Dose: 100 mg Fluticasone Propionate (Flonase) 1 spr JASMYN BID [facility] Last Admin: 07/03/17 08:40 Dose: 1 spr Gabapentin (Neurontin) 600 mg PO HS [facility] Last Admin: 07/02/17 21:07 Dose: 600 mg Gabapentin (Neurontin) 300 mg PO DAILY [facility] Last Admin: 07/03/17 08:42 Dose: 300 mg Hydralazine HCl (Apresoline) 25 mg PO Q8 [facility] Last Admin: 07/03/17 06:16 Dose: 25 mg Levothyroxine Sodium (Synthroid) 50 mcg PO DAILY@0630 [facility] Last Admin: 07/03/17 06:16 Dose: 50 mcg Lorazepam (Ativan) 0.5 mg PO BID PRN PRN Reason: Anxiety Meclizine HCl (Antivert) 25 mg PO TID PRN PRN Reason: Dizziness Last Admin: 06/25/17 15:20 Dose: 25 mg Multivitamins/Minerals (Therapeutic-M Tab) 1 tab PO DAILY [facility] Last Admin: 07/03/17 08:42 Dose: 1 tab Pantoprazole Sodium (Protonix Ec Tab) 40 mg PO 0600 [facility] Last Admin: 07/03/17 06:16 Dose: 40 mg Polyethylene Glycol (Miralax) 17 gm PO HS PRN PRN Reason: Constipation Last Admin: 06/21/17 21:18 Dose: 17 gm Promethazine HCl/Codeine (Phenergan/Codeine Oral Syrup) 10 ml PO Q6 PRN PRN Reason: Cough Fluticasone/Salmeterol (Advair Diskus 250/50) 1 puff IH Q12 [facility] Last Admin: 07/03/17 08:39 Dose: 1 puff Sennosides (Senokot Tab) 17.2 mg PO HS [facility] Last Admin: 07/02/17 21:09 Dose: 17.2 mg Sertraline HCl (Zoloft) 50 mg PO DAILY [facility] Last Admin: 07/03/17 08:43 Dose: 50 mg Verapamil HCl (Calan Sr Tab) 180 mg PO DAILY [facility] Last Admin: 07/03/17 08:41 Dose: 180 mg - Labs Labs: 06/20/17 15:25 06/20/17 15:25 Assessment and Plan (1) Right pontine stroke Status: Acute (2) Hyperthyroidism Status: Acute (3) Hypertension Status: Acute (4) Cough Status: Acute (5) Nasopharyngitis, chronic Status: Acute
[2017-07-04] MEDS: Pantoprazole 40 mg EC Tab PO SCH (06:27)
[2017-07-04] MEDS: Levothyroxine 50 MCG TAB PO SCH (06:27)
[2017-07-04] MEDS: Albuterol-Ipratrop 3 mg / 0.5 (3 ml) UD INH SCH ×3 (07:25→19:20)
[2017-07-04] MEDS: Verapamil 180 mg ER Tab PO SCH (08:06)
[2017-07-04] MEDS: Multivitamin With Minerals Tab PO SCH (08:07)
[2017-07-04] MEDS: Fluticasone-Salmeterol 250-50mcg Diskus IH SCH ×2 (08:48→21:54)
--- NOTE | 2017-07-04 16:04 | PSY.TMCNF ---
Nursing - Vital Signs Vital Signs (Last 8 hours): Vital Signs 07/04/17 07/04/17 07/04/17 08:06 08:07 08:19 Temperature 98.2 F Pulse Rate 75 75 Respiratory 20 Rate Blood Pressure 160/84 H 160/84 H 160/84 H O2 Sat by Pulse 96 Oximetry 07/04/17 07/04/17 07/04/17 09:00 12:56 13:06 Temperature 98.2 F Pulse Rate 75 70 Respiratory 20 18 Rate Blood Pressure 160/84 H 124/69 124/69 O2 Sat by Pulse Oximetry Pain: 0 - Precautions: Precautions: Fall Prevention, Aspiration - Medications/Other Issues Comment: - Needs intermittent reminder to drink small amount of water at a time. - Consults Comment: Dr. Min, Dr. Andrade - Toileting Toileting: Moderate Assistance - Bladder Management Bladder Pattern: Normal Voiding Method: Toilet, Urinal Bladder Management: Supervision Frequency of Accidents: 0 - Bowel Management Bowel Pattern: Normal Bowel Management: Supervision Frequency of Accidents: 0 - Transfers Transfers: Minimal Assistance - ADL's ADL's: Maximal Assistance - Patient/Family Teaching Comments: CARE POST CVA , ASPIRATION AND SAFETY PRECAUTIONS - Goals/Time Frame Comments: PER MULTIDISCIPLINARY CARE PLAN GOALS - Provider Provider: NISREEN GIRALDON RN CRRN Physical Therapy - Bed Mobility Bed Mobility: Contact Guard, Minimal Assistance - Transfers Wheelchair to Mat: Verbal Cues, Contact Guard, Minimal Assistance Sit to Stand: Verbal Cues, Contact Guard Comment: WBQC - Ambulation Level of Assistance: Verbal Cues, Contact Guard, Minimal Assistance Distance (ft.): 60 Assistive Devices: Wide base quad cane - Stair Negotiation Stairs: Level of Assistance: Moderate Assistance Number of Stairs: 6 Handrails: Right Comment: -6 8 inch steps with moderate assistance due to impaired safety and impaired trunk control on descent. -requires cues for sequencing as he frequently attempts to place weak leg up first on ascent. -posterior leaf spring in place on LLE - Standing Balance Static Stand: Contact Guard Assist Dynamic Stand: Minimal Assistance, Moderate Assistance - Pain Pain (assessed during therapy session): 4 Management Techniques: Position Change, Exercise, Inactivity Comment: L shoulder - Insight/Carryover Insight/Carryover: Fair - Patient/Family Education Comment: safety, therapy schedule, therapy goals, mobility, use of DME, stroke recovery, relaxation techniques, use of call [place], WC mobility, POC - Assessment/Plan Assessment: Mr. Pineda presents today with increased phlegm in chest and PT hears audible wheezing with dyspnea on exertion with gait trials today. Patient continues to demonstrates impaired insight into deficits and requires frequent re-education regarding stroke recovery. Patient progressed to steps in hallway with full flight and patient requires cues and hands on assistance for safety. PT recommends continued skilled therapy services to maximize safety and independence with all mobility prior to acute rehab discharge. PT recommends discharge to [facility] to continue addressing skilled rehab needs to reduce burden of care s/p CVA prior to community discharge. - Goals Timeframe: 7 days Goals: 6 steps with single rail with min A. 75 feet with WBQC with CG with appropriate L foot bracing. CG for sit to/from stand. min A for SPT. CS with rolling. CS with supine to/from sit - Provider Therapist: Eliana Purdy PT, DPT License Number: [id number] Occupational Therapy - Arousal/Attention/Orientation Patient Orientation: Person, Place, Time, Appropriate to Age, Appropriate to Situation - ADL/IADL Self Feeding: Supervision, Set-up Help Grooming: Supervision, Verbal Cues, Set-up Help Bathing-Upper Extremity: Verbal Cues, Set-up Help, Minimal Assistance Bathing-Lower Extremity: Verbal Cues, Set-up Help, Moderate Assistance Dressing-Upper Extremity: Verbal Cues, Set-up Help, Minimal Assistance Dressing-Lower Extremity: Verbal Cues, Set-up Help, Minimal Assistance, Moderate Assistance Comment: -uses adaptive devices/strategies to complete lower body adls. - completes adls/showering seated with hand held shower - Sitting Balance Static Sitting: Supervision Dynamic Sitting: Reaches across midline, Reaches out of base of support, Reaches within base of support, Contact Guard Assist, Minimal Assistance Comment: unsupported at edge of bed - Transfers Wheelchair to Bed Transfers: Verbal Cues, Set-up Help, Contact Guard, Minimal Assistance Toilet Transfers: Verbal Cues, Set-up Help, Contact Guard, Minimal Assistance Comment: shower transfers with Min assist and verbal cues - Wheelchair Management Level of Assistance: Modified Independent Distance (ft.): 200 - Upper Extremity Status Right Upper Extremity Comment: AROM is WFLS Left Upper Extremity Comment: PROM Is WFLS, but impaired AROM. strength 2+/5 to 3-/5 with flexion synergy patterns - Pain Pain (assessed during therapy session): 4 Alleviating Techniques: Position Change, Exercise, Inactivity Comment: L shoulder - Insight/Carryover Insight/Carryover: Fair - Patient/Family Education Comment: safety, therapy schedule, therapy goals, mobility, use of DME, stroke recovery, relaxation techniques, use of call [place], WC mobility, POC - Assessment/Plan Assessment: Mr. Pineda presents today with increased phlegm in chest and PT hears audible wheezing with dyspnea on exertion with gait trials today. Patient continues to demonstrates impaired insight into deficits and requires frequent re-education regarding stroke recovery. Patient progressed to steps in hallway with full flight and patient requires cues and hands on assistance for safety. PT recommends continued skilled therapy services to maximize safety and independence with all mobility prior to acute rehab discharge. PT recommends discharge to [facility] to continue addressing skilled rehab needs to reduce burden of care s/p CVA prior to community discharge. - Goals Timeframe: 7 days Goals: 6 steps with single rail with min A. 75 feet with WBQC with CG with appropriate L foot bracing. CG for sit to/from stand. min A for SPT. CS with rolling. CS with supine to/from sit - Provider Therapist: Betsey Price OTR/Guy Speech Therapy - Consult Information Patient on Program: Yes Medical Diagnosis: CVA Treatment Diagnosis: minimal dysarthria and dysphagia - Assessment Comment: minimal dysarthria, though speech WFL when utilizing compensatory speech strategies - Plan Assessment: Mr. Pineda presents today with increased phlegm in chest and PT hears audible wheezing with dyspnea on exertion with gait trials today. Patient continues to demonstrates impaired insight into deficits and requires frequent re-education regarding stroke recovery. Patient progressed to steps in hallway with full flight and patient requires cues and hands on assistance for safety. PT recommends continued skilled therapy services to maximize safety and independence with all mobility prior to acute rehab discharge. PT recommends discharge to [facility] to continue addressing skilled rehab needs to reduce burden of care s/p CVA prior to community discharge. - Provider Therapist: Keely Bean License Number: [id number] Recreational Therapy - Participation Participation: Participates in Individual and/or Group Sessions - Attendance Attendance: 3-5 times per week - Activities Leisure Activities: Cards and Games - Socialization Level of Socialization: Initiates/interacts freely with care givers and peer - Diversional Time Diversional Time: socializing - Assessment Assessment/Plan: Mr. Pineda presents today with increased phlegm in chest and PT hears audible wheezing with dyspnea on exertion with gait trials today. Patient continues to demonstrates impaired insight into deficits and requires frequent re-education regarding stroke recovery. Patient progressed to steps in hallway with full flight and patient requires cues and hands on assistance for safety. PT recommends continued skilled therapy services to maximize safety and independence with all mobility prior to acute rehab discharge. PT recommends discharge to [facility] to continue addressing skilled rehab needs to reduce burden of care s/p CVA prior to community discharge. - Provider Therapist: Alta Beyer, HISTORIOGRAPHY PROFESSOR #[id number] Nutrition - Current Diet Current Diet/ Supplement/ Feedings: 2 gram Na low fat/low cholesterol advanced bite size thin liquids. no straw when drinking - Appetite Percent Meal Consumed: 75-100% - Comments Comments: CARE POST CVA , ASPIRATION AND SAFETY PRECAUTIONS - Assessment/Goals/Time Frame Assessment/Goals/Time Frame: - Needs intermittent reminder to drink small amount of water at a time. - Provider Provider: Brittney Ford RD Case Management - Psychosocial Assessment Support Systems: Lives alone. Has supportive friend [place] Psychological Interventions/Needs: Alert and oriented . He is motivated to participate in all therapy treatments Discharge Concerns: Lives alone in a 2nd floor walk up apartment Patient/Family Meeting: Met with patient who was just admitted to the Rehab unit 06/19/2017 to reteam. Intervention/Goal/Outcome:: 1. Plan: JILLIAN as patient with continued L sided weakness, continues to make progress in therapy and with limited support at home. 2. Patient requesting JILLIAN to maximize independence before returning home, [facility] close to [facility] crane. 3. Tentative discharge date: . 4. continued emotional support. 5. continued stay auth, LAD: 06/29 - Discharge Plan Discharge Plan: Subacute care - Provider Provider: GABBI Joe, ECOLOGY PROFESSOR License Number: [id number] Rehabilitation Plan - Treatment Plan Treatment Plan: Physical Therapy, Occupational Therapy, Dietary, Patient/Family Education - Discharge Plan Estimated Date of Discharge: 07/06/17 Discharge to: Subacute
--- NOTE | 2017-07-04 18:26 | CP.PCM.PN ---
Subjective - Date & Time of Evaluation Date of Evaluation: 07/04/17 Time of Evaluation: 18:25 - Subjective Subjective: Patient seen in room had some SOB issues earlier but now better denies CP or fever continue current care set for d/c to [facility] 07/06/17 Objective - Vital Signs/Intake and Output Vital Signs (last 24 hours): Temp Pulse Resp BP Pulse Ox 98.2 F 70 18 124/69 96 07/04/17 09:00 07/04/17 12:56 07/04/17 12:56 07/04/17 13:06 07/04/17 08:19 - Medications Medications: Current Medications Albuterol/Ipratropium (Duoneb 3 Mg/0.5 Mg (3 Ml) Ud) 3 ml INH RTID [facility] Last Admin: 07/04/17 13:00 Dose: 3 ml Allopurinol (Zyloprim) 100 mg PO DAILY [facility] Last Admin: 07/04/17 08:07 Dose: 100 mg Aspirin (Ecotrin) 81 mg PO DAILY [facility] Last Admin: 07/04/17 08:06 Dose: 81 mg Atenolol (Tenormin) 25 mg PO DAILY [facility] Last Admin: 07/04/17 08:07 Dose: 25 mg Atorvastatin Calcium (Lipitor) 80 mg PO DIN [facility] Last Admin: 07/04/17 17:34 Dose: 80 mg Clopidogrel Bisulfate (Plavix) 75 mg PO DAILY [facility] Last Admin: 07/04/17 08:06 Dose: 75 mg Colchicine (Colchicine) 0.6 mg PO DAILY PRN PRN Reason: Pain, Mild (1-3) Last Admin: 06/24/17 08:32 Dose: 0.6 mg Docusate Sodium (Colace) 100 mg PO BID [facility] Last Admin: 07/04/17 17:37 Dose: Not Given Fluticasone Propionate (Flonase) 1 spr JASMYN BID [facility] Last Admin: 07/04/17 17:37 Dose: 1 spr Gabapentin (Neurontin) 600 mg PO HS [facility] Last Admin: 07/03/17 21:45 Dose: 600 mg Gabapentin (Neurontin) 300 mg PO DAILY [facility] Last Admin: 07/04/17 08:06 Dose: 300 mg Hydralazine HCl (Apresoline) 25 mg PO Q8 [facility] Last Admin: 07/04/17 13:06 Dose: 25 mg Levothyroxine Sodium (Synthroid) 50 mcg PO DAILY@0630 [facility] Last Admin: 07/04/17 06:27 Dose: 50 mcg Lorazepam (Ativan) 0.5 mg PO BID PRN PRN Reason: Anxiety Meclizine HCl (Antivert) 25 mg PO TID PRN PRN Reason: Dizziness Last Admin: 06/25/17 15:20 Dose: 25 mg Multivitamins/Minerals (Therapeutic-M Tab) 1 tab PO DAILY [facility] Last Admin: 07/04/17 08:07 Dose: 1 tab Pantoprazole Sodium (Protonix Ec Tab) 40 mg PO 0600 [facility] Last Admin: 07/04/17 06:27 Dose: 40 mg Polyethylene Glycol (Miralax) 17 gm PO HS PRN PRN Reason: Constipation Last Admin: 06/21/17 21:18 Dose: 17 gm Promethazine HCl/Codeine (Phenergan/Codeine Oral Syrup) 10 ml PO Q6 PRN PRN Reason: Cough Fluticasone/Salmeterol (Advair Diskus 250/50) 1 puff IH Q12 [facility] Last Admin: 07/04/17 08:48 Dose: 1 puff Sennosides (Senokot Tab) 17.2 mg PO HS [facility] Last Admin: 07/03/17 21:46 Dose: Not Given Sertraline HCl (Zoloft) 50 mg PO DAILY [facility] Last Admin: 07/04/17 08:07 Dose: 50 mg Verapamil HCl (Calan Sr Tab) 180 mg PO DAILY [facility] Last Admin: 07/04/17 08:06 Dose: 180 mg - Labs Labs: 06/20/17 15:25 06/20/17 15:25
[2017-07-05] MEDS: Levothyroxine 50 MCG TAB PO SCH (06:17)
[2017-07-05] MEDS: Pantoprazole 40 mg EC Tab PO SCH (06:17)
[2017-07-05] MEDS: Albuterol-Ipratrop 3 mg / 0.5 (3 ml) UD INH SCH ×3 (07:24→19:37)
[2017-07-05] MEDS: Fluticasone-Salmeterol 250-50mcg Diskus IH SCH ×2 (08:31→21:38)
[2017-07-05] MEDS: Verapamil 180 mg ER Tab PO SCH (08:33)
[2017-07-05] MEDS: Multivitamin With Minerals Tab PO SCH (08:36)
--- NOTE | 2017-07-05 10:12 | CP.PCM.PN ---
Subjective - Date & Time of Evaluation Date of Evaluation: 07/04/17 Time of Evaluation: 10:11 - Subjective Subjective: Patient remains stable Has no chest pain or SOB Objective - Vital Signs/Intake and Output Vital Signs (last 24 hours): Temp Pulse Resp BP Pulse Ox 98.0 F 74 22 177/78 H 96 07/05/17 09:48 07/05/17 09:48 07/05/17 09:48 07/05/17 09:48 07/05/17 09:48 - Medications Medications: Current Medications Albuterol/Ipratropium (Duoneb 3 Mg/0.5 Mg (3 Ml) Ud) 3 ml INH RTID [facility] Last Admin: 07/05/17 07:24 Dose: 3 ml Allopurinol (Zyloprim) 100 mg PO DAILY [facility] Last Admin: 07/05/17 08:36 Dose: 100 mg Aspirin (Ecotrin) 81 mg PO DAILY [facility] Last Admin: 07/05/17 08:34 Dose: 81 mg Atenolol (Tenormin) 25 mg PO DAILY [facility] Last Admin: 07/05/17 08:35 Dose: 25 mg Atorvastatin Calcium (Lipitor) 80 mg PO DIN [facility] Last Admin: 07/04/17 17:34 Dose: 80 mg Clopidogrel Bisulfate (Plavix) 75 mg PO DAILY [facility] Last Admin: 07/05/17 08:35 Dose: 75 mg Colchicine (Colchicine) 0.6 mg PO DAILY PRN PRN Reason: Pain, Mild (1-3) Last Admin: 06/24/17 08:32 Dose: 0.6 mg Docusate Sodium (Colace) 100 mg PO BID [facility] Last Admin: 07/05/17 08:33 Dose: 100 mg Fluticasone Propionate (Flonase) 1 spr JASMYN BID [facility] Last Admin: 07/05/17 08:34 Dose: 1 spr Gabapentin (Neurontin) 600 mg PO HS [facility] Last Admin: 07/04/17 21:55 Dose: 600 mg Gabapentin (Neurontin) 300 mg PO DAILY [facility] Last Admin: 07/05/17 08:35 Dose: 300 mg Hydralazine HCl (Apresoline) 25 mg PO Q8 [facility] Last Admin: 07/05/17 06:16 Dose: 25 mg Levothyroxine Sodium (Synthroid) 50 mcg PO DAILY@0630 [facility] Last Admin: 07/05/17 06:17 Dose: 50 mcg Lorazepam (Ativan) 0.5 mg PO BID PRN PRN Reason: Anxiety Meclizine HCl (Antivert) 25 mg PO TID PRN PRN Reason: Dizziness Last Admin: 06/25/17 15:20 Dose: 25 mg Multivitamins/Minerals (Therapeutic-M Tab) 1 tab PO DAILY [facility] Last Admin: 07/05/17 08:36 Dose: 1 tab Pantoprazole Sodium (Protonix Ec Tab) 40 mg PO 0600 [facility] Last Admin: 07/05/17 06:17 Dose: 40 mg Polyethylene Glycol (Miralax) 17 gm PO HS PRN PRN Reason: Constipation Last Admin: 06/21/17 21:18 Dose: 17 gm Promethazine HCl/Codeine (Phenergan/Codeine Oral Syrup) 10 ml PO Q6 PRN PRN Reason: Cough Fluticasone/Salmeterol (Advair Diskus 250/50) 1 puff IH Q12 [facility] Last Admin: 07/05/17 08:31 Dose: 1 puff Sennosides (Senokot Tab) 17.2 mg PO HS [facility] Last Admin: 07/04/17 21:55 Dose: 17.2 mg Sertraline HCl (Zoloft) 50 mg PO DAILY [facility] Last Admin: 07/05/17 08:36 Dose: 50 mg Trazodone HCl (Desyrel) 50 mg PO HS PRN PRN Reason: Insomnia Verapamil HCl (Calan Sr Tab) 180 mg PO DAILY [facility] Last Admin: 07/05/17 08:33 Dose: 180 mg - Labs Labs: 06/20/17 15:25 06/20/17 15:25 - Head Exam Head Exam: NORMAL INSPECTION - Eye Exam Eye Exam: Normal appearance - ENT Exam ENT Exam: Mucous Membranes Moist - Cardiovascular Exam Cardiovascular Exam: REGULAR RHYTHM - GI/Abdominal Exam GI & Abdominal Exam: Normal Bowel Sounds - Neurological Exam Neurological Exam: Awake, Oriented x3 Assessment and Plan (1) Right pontine stroke Status: Acute (2) Hyperthyroidism Status: Acute (3) Hypertension Status: Acute (4) Cough Status: Acute (5) Nasopharyngitis, chronic Status: Acute - Assessment and Plan (Free Text) Plan: contmeds cont PT pain meds cont low salt low fat diet
--- NOTE | 2017-07-05 10:13 | CP.PCM.PN ---
Subjective - Date & Time of Evaluation Date of Evaluation: 07/05/17 Time of Evaluation: 10:12 - Subjective Subjective: Patient feels a lot better today Claims that he has poor sleep but staff claim that he had good 6 hrs of sleep. Has no chets pain Doing well with PT Objective - Vital Signs/Intake and Output Vital Signs (last 24 hours): Temp Pulse Resp BP Pulse Ox 98.0 F 74 22 177/78 H 96 07/05/17 09:48 07/05/17 09:48 07/05/17 09:48 07/05/17 09:48 07/05/17 09:48 - Medications Medications: Current Medications Albuterol/Ipratropium (Duoneb 3 Mg/0.5 Mg (3 Ml) Ud) 3 ml INH RTID [facility] Last Admin: 07/05/17 07:24 Dose: 3 ml Allopurinol (Zyloprim) 100 mg PO DAILY [facility] Last Admin: 07/05/17 08:36 Dose: 100 mg Aspirin (Ecotrin) 81 mg PO DAILY [facility] Last Admin: 07/05/17 08:34 Dose: 81 mg Atenolol (Tenormin) 25 mg PO DAILY [facility] Last Admin: 07/05/17 08:35 Dose: 25 mg Atorvastatin Calcium (Lipitor) 80 mg PO DIN [facility] Last Admin: 07/04/17 17:34 Dose: 80 mg Clopidogrel Bisulfate (Plavix) 75 mg PO DAILY [facility] Last Admin: 07/05/17 08:35 Dose: 75 mg Colchicine (Colchicine) 0.6 mg PO DAILY PRN PRN Reason: Pain, Mild (1-3) Last Admin: 06/24/17 08:32 Dose: 0.6 mg Docusate Sodium (Colace) 100 mg PO BID [facility] Last Admin: 07/05/17 08:33 Dose: 100 mg Fluticasone Propionate (Flonase) 1 spr JASMYN BID [facility] Last Admin: 07/05/17 08:34 Dose: 1 spr Gabapentin (Neurontin) 600 mg PO HS [facility] Last Admin: 07/04/17 21:55 Dose: 600 mg Gabapentin (Neurontin) 300 mg PO DAILY [facility] Last Admin: 07/05/17 08:35 Dose: 300 mg Hydralazine HCl (Apresoline) 25 mg PO Q8 [facility] Last Admin: 07/05/17 06:16 Dose: 25 mg Levothyroxine Sodium (Synthroid) 50 mcg PO DAILY@0630 [facility] Last Admin: 07/05/17 06:17 Dose: 50 mcg Lorazepam (Ativan) 0.5 mg PO BID PRN PRN Reason: Anxiety Meclizine HCl (Antivert) 25 mg PO TID PRN PRN Reason: Dizziness Last Admin: 06/25/17 15:20 Dose: 25 mg Multivitamins/Minerals (Therapeutic-M Tab) 1 tab PO DAILY [facility] Last Admin: 07/05/17 08:36 Dose: 1 tab Pantoprazole Sodium (Protonix Ec Tab) 40 mg PO 0600 [facility] Last Admin: 07/05/17 06:17 Dose: 40 mg Polyethylene Glycol (Miralax) 17 gm PO HS PRN PRN Reason: Constipation Last Admin: 06/21/17 21:18 Dose: 17 gm Promethazine HCl/Codeine (Phenergan/Codeine Oral Syrup) 10 ml PO Q6 PRN PRN Reason: Cough Fluticasone/Salmeterol (Advair Diskus 250/50) 1 puff IH Q12 [facility] Last Admin: 07/05/17 08:31 Dose: 1 puff Sennosides (Senokot Tab) 17.2 mg PO HS [facility] Last Admin: 07/04/17 21:55 Dose: 17.2 mg Sertraline HCl (Zoloft) 50 mg PO DAILY [facility] Last Admin: 07/05/17 08:36 Dose: 50 mg Trazodone HCl (Desyrel) 50 mg PO HS PRN PRN Reason: Insomnia Verapamil HCl (Calan Sr Tab) 180 mg PO DAILY [facility] Last Admin: 07/05/17 08:33 Dose: 180 mg - Labs Labs: 06/20/17 15:25 06/20/17 15:25 - Head Exam Head Exam: NORMAL INSPECTION - Eye Exam Eye Exam: Normal appearance - ENT Exam ENT Exam: Mucous Membranes Moist - Respiratory Exam Respiratory Exam: Clear to Ausculation Bilateral - Cardiovascular Exam Cardiovascular Exam: REGULAR RHYTHM - GI/Abdominal Exam GI & Abdominal Exam: Normal Bowel Sounds - Neurological Exam Neurological Exam: Awake, Oriented x3 Assessment and Plan (1) Right pontine stroke Status: Acute (2) Hyperthyroidism Status: Acute (3) Hypertension Status: Acute (4) Cough Status: Acute (5) Nasopharyngitis, chronic Status: Acute - Assessment and Plan (Free Text) Plan: Cont meds Cont tx Cont PT trazodone 50 mg at hs.
--- NOTE | 2017-07-05 16:42 | CP.PCM.PN ---
Subjective - Date & Time of Evaluation Date of Evaluation: 07/05/17 Time of Evaluation: 16:41 - Subjective Subjective: Patient seen in PT doing well set for d/c tomorrow to [facility] has made good progress Objective - Vital Signs/Intake and Output Vital Signs (last 24 hours): Temp Pulse Resp BP Pulse Ox 98.0 F 75 22 136/70 96 07/05/17 09:48 07/05/17 13:08 07/05/17 09:48 07/05/17 13:08 07/05/17 09:48 - Medications Medications: Current Medications Albuterol/Ipratropium (Duoneb 3 Mg/0.5 Mg (3 Ml) Ud) 3 ml INH RTID [facility] Last Admin: 07/05/17 13:02 Dose: 3 ml Allopurinol (Zyloprim) 100 mg PO DAILY [facility] Last Admin: 07/05/17 08:36 Dose: 100 mg Aspirin (Ecotrin) 81 mg PO DAILY [facility] Last Admin: 07/05/17 08:34 Dose: 81 mg Atenolol (Tenormin) 25 mg PO DAILY [facility] Last Admin: 07/05/17 08:35 Dose: 25 mg Atorvastatin Calcium (Lipitor) 80 mg PO DIN [facility] Last Admin: 07/04/17 17:34 Dose: 80 mg Clopidogrel Bisulfate (Plavix) 75 mg PO DAILY [facility] Last Admin: 07/05/17 08:35 Dose: 75 mg Colchicine (Colchicine) 0.6 mg PO DAILY PRN PRN Reason: Pain, Mild (1-3) Last Admin: 06/24/17 08:32 Dose: 0.6 mg Docusate Sodium (Colace) 100 mg PO BID [facility] Last Admin: 07/05/17 08:33 Dose: 100 mg Fluticasone Propionate (Flonase) 1 spr JASMYN BID [facility] Last Admin: 07/05/17 08:34 Dose: 1 spr Gabapentin (Neurontin) 600 mg PO HS [facility] Last Admin: 07/04/17 21:55 Dose: 600 mg Gabapentin (Neurontin) 300 mg PO DAILY [facility] Last Admin: 07/05/17 08:35 Dose: 300 mg Hydralazine HCl (Apresoline) 25 mg PO Q8 [facility] Last Admin: 07/05/17 13:08 Dose: 25 mg Levothyroxine Sodium (Synthroid) 50 mcg PO DAILY@0630 [facility] Last Admin: 07/05/17 06:17 Dose: 50 mcg Lorazepam (Ativan) 0.5 mg PO BID PRN PRN Reason: Anxiety Meclizine HCl (Antivert) 25 mg PO TID PRN PRN Reason: Dizziness Last Admin: 06/25/17 15:20 Dose: 25 mg Multivitamins/Minerals (Therapeutic-M Tab) 1 tab PO DAILY [facility] Last Admin: 07/05/17 08:36 Dose: 1 tab Pantoprazole Sodium (Protonix Ec Tab) 40 mg PO 0600 [facility] Last Admin: 07/05/17 06:17 Dose: 40 mg Polyethylene Glycol (Miralax) 17 gm PO HS PRN PRN Reason: Constipation Last Admin: 06/21/17 21:18 Dose: 17 gm Promethazine HCl/Codeine (Phenergan/Codeine Oral Syrup) 10 ml PO Q6 PRN PRN Reason: Cough Fluticasone/Salmeterol (Advair Diskus 250/50) 1 puff IH Q12 [facility] Last Admin: 07/05/17 08:31 Dose: 1 puff Sennosides (Senokot Tab) 17.2 mg PO HS [facility] Last Admin: 07/04/17 21:55 Dose: 17.2 mg Sertraline HCl (Zoloft) 50 mg PO DAILY [facility] Last Admin: 07/05/17 08:36 Dose: 50 mg Trazodone HCl (Desyrel) 50 mg PO HS PRN PRN Reason: Insomnia Verapamil HCl (Calan Sr Tab) 180 mg PO DAILY [facility] Last Admin: 07/05/17 08:33 Dose: 180 mg - Labs Labs: 06/20/17 15:25 06/20/17 15:25
[2017-07-05 20:23] VITALS: RESP 20; O2SAT 97
[2017-07-06] MEDS: Levothyroxine 50 MCG TAB PO SCH (06:09)
[2017-07-06] MEDS: Pantoprazole 40 mg EC Tab PO SCH (06:10)
[2017-07-06] MEDS: Albuterol-Ipratrop 3 mg / 0.5 (3 ml) UD INH SCH ×2 (07:32→14:23)
[2017-07-06 08:10] VITALS: TEMP 98.3
[2017-07-06] MEDS: Verapamil 180 mg ER Tab PO SCH (08:22)
[2017-07-06] MEDS: Fluticasone-Salmeterol 250-50mcg Diskus IH SCH (08:22)
[2017-07-06] MEDS: Multivitamin With Minerals Tab PO SCH (08:25)
--- NOTE | 2017-07-06 09:32 | CP.PCM.DIS ---
Provider - Provider Date of Admission: 06/19/17 20:49 Attending physician: Charles Linder MD Primary care physician: Kings Wade MD Time Spent in preparation of Discharge (in minutes): 30 Diagnosis - Discharge Diagnosis (1) Right pontine stroke Status: Acute Priority: High (2) Hyperthyroidism Status: Acute (3) Hypertension Status: Acute (4) Cough Status: Acute (5) Nasopharyngitis, chronic Status: Acute Hospital Course - Lab Results Lab Results: Most Recent Lab Values WBC 10.1 K/uL (4.8-10.8) 06/20/17 15:25 RBC 4.96 Mil/uL (4.40-5.90) 06/20/17 15:25 Hgb 15.7 g/dL (12.0-18.0) 06/20/17 15:25 Hct 46.2 % (35.0-51.0) 06/20/17 15:25 MCV 93.2 fl (80.0-94.0) 06/20/17 15:25 MCH 31.7 pg (27.0-31.0) H 06/20/17 15:25 MCHC 34.0 g/dL (33.0-37.0) 06/20/17 15:25 RDW 13.4 % (11.5-14.5) 06/20/17 15:25 Plt Count 229 K/uL (130-400) 06/20/17 15:25 Sodium 134 mmol/l (132-148) 06/20/17 15:25 Potassium 4.2 MMOL/L (3.6-5.0) 06/20/17 15:25 Chloride 101 mmol/L (98-107) 06/20/17 15:25 Carbon Dioxide 21 mmol/L (22-30) L 06/20/17 15:25 Anion Gap 16 (10-20) 06/20/17 15:25 BUN 24 mg/dl (9-20) H 06/20/17 15:25 Creatinine 1.4 mg/dL (0.8-1.5) 06/20/17 15:25 Est GFR ( Amer) > 60 06/20/17 15:25 Est GFR (Non-Af Amer) 50 06/20/17 15:25 POC Glucose (mg/dL) 139 mg/dL (65-110) H 06/20/17 14:51 Random Glucose 117 mg/dL (75-110) H 06/20/17 15:25 Hemoglobin A1c 5.5 % (4.2-6.5) 06/20/17 05:00 Uric Acid 7.5 mg/Dl (3.5-8.5) 06/21/17 05:30 Calcium 9.4 mg/dL (8.4-10.2) 06/20/17 15:25 Triglycerides 77 mg/DL (0-149) 06/21/17 05:30 Cholesterol 94 mg/dL (0-199) 06/21/17 05:30 LDL Cholesterol Direct 43 mg/dL (0-129) 06/21/17 05:30 HDL Cholesterol 30 MG/DL (30-70) 06/21/17 05:30 TSH 3rd Generation 0.24 mIU/ML (0.46-4.68) L 06/21/17 05:30 - Hospital Course Hospital Course: This is a 71 y/o male admitted for acute rehab. He had a CVA and left hemiparesis and presented with very poor gait and balance. He has a hx of HTN, hyperlipidemia, hyperuricemia and had difficulty with sleep. he was started on phys therapy and OT. He did very well. He had issues with elevated BP and medications were adjusted. He complained of numbness of the left upper ext and was started on Neurontin. H remained stable fr the rest of his stay in rehab and was discharged to subacute rehab for further therapy. Discharge Exam - Head Exam Head Exam: NORMAL INSPECTION - Eye Exam Eye Exam: Normal appearance - Respiratory Exam Respiratory Exam: NORMAL BREATHING PATTERN - Cardiovascular Exam Cardiovascular Exam: REGULAR RHYTHM - GI/Abdominal Exam GI & Abdominal Exam: Normal Bowel Sounds - Neurological Exam Neurological exam: CN II-XII Intact, Oriented x3 - Psychiatric Exam Psychiatric exam: Normal Mood Discharge Plan - Follow Up Plan Condition: GOOD Disposition: HOME/ ROUTINE Additional Instructions: Advised to continue all meds cont pain meds and neurontin and trazodone for sleep. Referrals: Kings Wade MD [Primary Care Provider] -
[2017-07-06 13:20] VITALS: BP 142/66; PULSE 61
== END 2017-07-06 14:30 | DRG 57 ==
PROVIDERS: ADMIT Family Medicine; ATTEND Family Medicine
PROC: F07M6FZ Therapeutic Exercise Treatment of Musculoskeletal System - Whole Body using Assistive, Adaptive, Supportive or Protective Equipment (ICD-10-PCS; principal; 2017-06-20)
PROC: F08Z4FZ Home Management Treatment using Assistive, Adaptive, Supportive or Protective Equipment (ICD-10-PCS; 2017-06-20)
DX: I69.954 Hemiplegia and hemiparesis following unspecified cerebrovascular disease affecting left non-dominant side (principal); G62.9 Polyneuropathy, unspecified; R41.4 Neurologic neglect syndrome; F32.9 Major depressive disorder, single episode, unspecified; E78.5 Hyperlipidemia, unspecified; E79.0 Hyperuricemia without signs of inflammatory arthritis and tophaceous disease; Z86.73 Personal history of transient ischemic attack (TIA), and cerebral infarction without residual deficits; F41.9 Anxiety disorder, unspecified; G47.30 Sleep apnea, unspecified; I10 Essential (primary) hypertension; J00 Acute nasopharyngitis [common cold]; K59.00 Constipation, unspecified; H53.9 Unspecified visual disturbance; Z87.891 Personal history of nicotine dependence; Z98.42 Cataract extraction status, left eye; H26.9 Unspecified cataract; R06.02 Shortness of breath; R26.9 Unspecified abnormalities of gait and mobility; R42 Dizziness and giddiness

== ENCOUNTER 2018-05-03 11:36 | Inpatient (IN) | payer MEDICARE ==
[2018-05-04 15:55] VITALS: BMI 29.1
[2018-05-04] MEDS: Albuterol-Ipratrop 3 mg / 0.5 (3 ml) UD IH SCH ×2 (16:30→20:17)
[2018-05-04] MEDS: Tmp-Smz 800 mg-160 mg DS Tab PO SCH (21:36)
[2018-05-04 22:51] LABS: URINE BILIRUBIN NEGATIVE (NEGATIVE); URINE BLOOD NEGATIVE (NEGATIVE); URINE CLARITY CLEAR (Clear); URINE COLOR YELLOW (YELLOW); URINE GLUCOSE (UA) 50 mg/dL (Normal); URINE LEUKOCYTE ESTERASE NEG Leu/uL (Negative); URINE PROTEIN NEGATIVE (NEGATIVE); URINE UROBILINOGEN 0.2-1.0 mg/dL (0.2-1.0)
[2018-05-05] MEDS: Albuterol-Ipratrop 3 mg / 0.5 (3 ml) UD IH SCH ×3 (00:59→19:18)
[2018-05-05 07:50] LABS: HEMOGLOBIN 14.6 g/dL (12.0-18.0); MEAN CELL VOLUME 95.9 fl (80.0-94.0); MEAN CORPUSCULAR HGB CONC 35.5 g/dL (33.0-37.0); RBC 4.28 Mil/uL (4.40-5.90); RED CELL DISTRIBUTION WIDTH 14.6 % (11.5-14.5); WHITE BLOOD COUNT 10.6 K/uL (4.8-10.8)
[2018-05-05 08:39] LABS: BLOOD UREA NITROGEN 22 mg/dl (9-20); CALCIUM 8.4 mg/dL (8.4-10.2); GFR AFRICAN-AMERICAN > 60; GFR NON-AFRICAN AMERICAN > 60
[2018-05-05] MEDS: Tmp-Smz 800 mg-160 mg DS Tab PO SCH ×2 (08:57→21:32)
[2018-05-05] MEDS ORDERED: Verapamil 240 mg ER Tab PO SCH (09:00)
[2018-05-05] MEDS: Sodium Chloride 0.9% 1,000 ML IV SCH (14:09)
--- NOTE | 2018-05-05 16:38 | CP.PCM.CON ---
History of Present Illness - History of Present Illness History of Present Illness: Dr Min PMR consultation on Bryce Pineda, right hand dominant, born 1944 who has been admitted to [facility] for acute inpatient rehabilitation following an acute left SDH and underwent craniotomy. Patient with dense left HP. He is a max A transfer. Prior left HP from CV[facility] the prior year Review of Systems - Constitutional Constitutional: absent: Chills - Cardiovascular Cardiovascular: absent: Chest Pain - Respiratory Respiratory: absent: Dyspnea - Gastrointestinal Gastrointestinal: Bloating, Constipation. absent: Abdominal Pain - Integumentary Integumentary: Unusual Bruising (left check and has tiara in left cranium) - Neurological Neurological: absent: Abnormal Movements Past Patient History - Infectious Disease Hx of Infectious Diseases: None - Tetanus Immunizations Tetanus Immunization: Unknown - Past Medical History & Family History Past Medical History?: Yes - Past Social History Smoking Status: Never Smoked Alcohol: None Drugs: Denies Home Situation {Lives}: With Family (+elev) - CARDIAC Hx Hypertension: Yes - PULMONARY Hx Chronic Obstructive Pulmonary Disease (COPD): Yes - NEUROLOGICAL HX Cerebrovascular Accident: Yes (L sided weakness) - HEENT Hx Cataracts: Yes (b/l cataract removal) Other/Comment: tonsillectomy - RENAL Hx Chronic Kidney Disease: No - ENDOCRINE/METABOLIC Hx Hypothyroidism: Yes - HEMATOLOGICAL/ONCOLOGICAL Hx AIDS: No Hx Blood Transfusions: No Hx Blood Transfusion Reaction: No Hx Human Immunodeficiency Virus (HIV): No - INTEGUMENTARY Hx Dermatological Problems: No - MUSCULOSKELETAL/RHEUMATOLOGICAL Hx Falls: Yes - GASTROINTESTINAL Other/Comment: inguinal hernia repair - GENITOURINARY/GYNECOLOGICAL Hx Genitourinary Disorders: No - PSYCHIATRIC Hx Substance Use: No - SURGICAL HISTORY Hx Surgeries: Yes - ANESTHESIA Hx Anesthesia Reactions: No Hx Malignant Hyperthermia: No Meds Allergies/Adverse Reactions: Allergies Allergy/AdvReac Type Severity Reaction Status Date / Time No Known Allergies Allergy Verified 05/04/18 15:55 - Medications Medications: Current Medications Acetaminophen (Tylenol 325mg Tab) 650 mg PO Q6 PRN PRN Reason: Headache Last Admin: 05/04/18 23:28 Dose: 650 mg Albuterol/Ipratropium (Duoneb 3 Mg/0.5 Mg (3 Ml) Ud) 3 ml IH RQ6 [facility] Last Admin: 05/05/18 07:47 Dose: 3 ml Allopurinol (Zyloprim) 300 mg PO DAILY [facility] Last Admin: 05/05/18 08:58 Dose: 300 mg Amlodipine Besylate (Norvasc) 10 mg PO DAILY [facility] Last Admin: 05/05/18 08:59 Dose: 10 mg Atenolol (Tenormin) 25 mg PO BID [facility] Last Admin: 05/05/18 08:58 Dose: 25 mg Atorvastatin Calcium (Lipitor) 80 mg PO DIN [facility] Last Admin: 05/04/18 21:35 Dose: 80 mg Famotidine (Pepcid) 40 mg PO HS [facility] Last Admin: 05/04/18 21:37 Dose: 40 mg Gabapentin (Neurontin) 600 mg PO DAILY [facility] Last Admin: 05/05/18 08:59 Dose: 600 mg Hydralazine HCl (Apresoline) 25 mg PO Q8 PRN PRN Reason: for systolic bp >160mmhg Sodium Chloride (Sodium Chloride 0.9%) 1,000 mls @ 80 mls/hr IV .[id number] [facility] Stop: 05/06/18 10:06 Last Admin: 05/05/18 14:09 Dose: 80 mls/hr Losartan Potassium (Cozaar) 100 mg PO DAILY [facility] Last Admin: 05/05/18 08:57 Dose: 100 mg Methylprednisolone (Medrol) 4 mg PO QID [facility] Stop: 05/05/18 22:01 Last Admin: 05/05/18 13:13 Dose: 4 mg Methylprednisolone (Medrol) 4 mg PO TID [facility] Stop: 05/06/18 17:01 Methylprednisolone (Medrol) 4 mg PO BID [facility] Stop: 05/07/18 17:01 Methylprednisolone (Medrol) 4 mg PO 0900 [facility] Stop: 05/08/18 09:01 Tamsulosin HCl (Flomax) 0.4 mg PO DAILY [facility] Last Admin: 05/05/18 09:00 Dose: 0.4 mg Trimethoprim/Sulfamethoxazole (Bactrim Ds Tab) 1 tab PO Q12 [facility] PRN Reason: Protocol Last Admin: 05/05/18 08:57 Dose: 1 tab Physical Exam - Constitutional Appears: Non-toxic - Head Exam Head Exam: absent: ATRAUMATIC (left cheeck echymosis and left cranial sutures) - ENT Exam ENT Exam: Mucous Membranes Moist - Respiratory Exam Respiratory Exam: NORMAL BREATHING PATTERN - Cardiovascular Exam Cardiovascular Exam: REGULAR RHYTHM - GI/Abdominal Exam GI & Abdominal Exam: Distended. absent: Guarding - Extremities Exam Extremities exam: Negative for: calf tenderness - Neurological Exam Neurological exam: Alert - Psychiatric Exam Psychiatric exam: Flat Affect - Skin Skin Exam: Warm (as above, tiara in scalp and ecchymosis left cheeck) Results - Vital Signs Recent Vital Signs: Last Vital Signs Temp 98.2 F 05/05/18 09:01 Pulse 62 05/05/18 14:28 Resp 18 05/05/18 14:28 BP 129/72 05/05/18 14:28 Pulse Ox 98 05/05/18 14:28 - Labs Result Diagrams: 05/05/18 05:30 05/05/18 05:30 Labs: Laboratory Results - last 24 hr 05/04/18 05/05/18 05/05/18 21:19 05:30 05:30 WBC 10.6 RBC 4.28 L Hgb 14.6 Hct 41.1 MCV 95.9 H D MCH 34.0 H MCHC 35.5 RDW 14.6 H Plt Count 229 Sodium 118 L* Potassium 3.6 Chloride 86 L Carbon Dioxide 21 L Anion Gap 15 BUN 22 H Creatinine 0.8 Est GFR ( Amer) > 60 Est GFR (Non-Af Amer) > 60 POC Glucose (mg/dL) Random Glucose 113 H Calcium 8.4 NT-Pro-B Natriuret Pep Urine Color Yellow Urine Clarity Clear Urine pH 7.0 Ur Specific [place] 1.016 Urine Protein Negative Urine Glucose (UA) 50 Urine Ketones Negative Urine Blood Negative Urine Nitrate Negative Urine Bilirubin Negative Urine Urobilinogen 0.2-1.0 Ur Leukocyte Esterase Neg Urine RBC (Auto) 2 Urine Microscopic WBC < 1 05/05/18 05/05/18 06:38 09:40 WBC RBC Hgb Hct MCV MCH MCHC RDW Plt Count Sodium Potassium Chloride Carbon Dioxide Anion Gap BUN Creatinine Est GFR ( Amer) Est GFR (Non-Af Amer) POC Glucose (mg/dL) 105 Random Glucose Calcium NT-Pro-B Natriuret Pep 827 Urine Color Urine Clarity Urine pH Ur Specific [place] Urine Protein Urine Glucose (UA) Urine Ketones Urine Blood Urine Nitrate Urine Bilirubin Urine Urobilinogen Ur Leukocyte Esterase Urine RBC (Auto) Urine Microscopic WBC Assessment & Plan - Assessment and Plan (Free Text) Assessment: left SDH with left HP UE>LE PT/OT to continue to help increase functional independence Team conference for d/c planning Pain: controlled Vascular: no evidence of DVT GI: + constipation, will get on colace, ordered MOM and fleets as well clean scalp daily with NS Patient is an excellent acute rehabilitation candidate and will have focused pain management, wound care, PT, OT and recreational therapy to help facilitate a safe and appropriate d/c plan
[2018-05-05] MEDS ORDERED: Magnesium Hydroxide Susp 30 ml UD PO PRN (16:49)
--- NOTE | 2018-05-05 17:30 | PCM.OPOC ---
Physiatry Overall Plan of Care - Overall Plan of Care Estimated Length of Stay in Weeks: 3 Rehab Impairment: Mobility, Gait, Speech, Balance, Coordination Etiologic Diagnosis: Cerebrovascular Accident Rehab/Medical Prognosis: Guarded - Anticipated Interventions Physical Therapy:: Yes Occupational Therapy:: Yes Speech Therapy:: Yes Recreational Therapy:: Yes - Therapy Goals Bed Mobility: Minimal Assistance Ambulation: Moderate Assistance Functional Positional Changes:: Minimal Assistance - Discharge Plan Discharge Destination: Subacute
[2018-05-06] MEDS: Albuterol-Ipratrop 3 mg / 0.5 (3 ml) UD IH SCH ×4 (01:30→19:12)
[2018-05-06] MEDS: Sodium Chloride 0.9% 1,000 ML IV SCH ×2 (02:42→16:49)
[2018-05-06 07:41] LABS: BLOOD UREA NITROGEN 23 mg/dl (9-20); CALCIUM 7.7 mg/dL (8.4-10.2); GFR AFRICAN-AMERICAN > 60; GFR NON-AFRICAN AMERICAN > 60
[2018-05-06] MEDS: Tmp-Smz 800 mg-160 mg DS Tab PO SCH ×2 (08:52→21:18)
[2018-05-07] MEDS: Albuterol-Ipratrop 3 mg / 0.5 (3 ml) UD IH SCH ×4 (01:21→19:21)
[2018-05-07] MEDS: Sodium Chloride 0.9% 1,000 ML IV SCH (02:10)
[2018-05-07 07:02] LABS: BLOOD UREA NITROGEN 15 mg/dl (9-20); CALCIUM 7.7 mg/dL (8.4-10.2); GFR AFRICAN-AMERICAN > 60; GFR NON-AFRICAN AMERICAN > 60
--- NOTE | 2018-05-07 08:05 | CON ---
DATE: CHIEF COMPLAINT: Status post left subdural hemorrhage status post evacuation. HISTORY OF PRESENTING ILLNESS: This is a 72-year-old man with past medical history of hypertension, hypothyroidism, history of CVA with residual mild left-sided weakness and status post fall after losing balance and he sustained left subdural hematoma in the left hemispheric convexity with a [id number] shift when he was at [facility] and had status post evacuation craniotomy. This had very well. Currently, now in Rehab at [facility] for muscle strengthening and rehabilitation. Currently, he is doing well. He is at his baseline. His blood pressures are stable. He is on Lipitor for dyslipidemia and gabapentin for neuropathic release. He is on tapering dose of steroids. PAST MEDICAL HISTORY: As above. SOCIAL HISTORY: No illicit drug use, smoking or EtOH abuse. FAMILY HISTORY: Noncontributory. MEDICATIONS: Reviewed by nurse practitioner reconciliation sheet. REVIEW OF SYSTEMS: A 14-point review of system is negative except for HPI. LABS: Today's sodium is 118, potassium is 3.6, chloride of 86, BUN of 22, creatinine 0.8, random glucose 113. PHYSICAL EXAMINATION: VITAL SIGNS: Temperature of 98.2, pulse rate is 69, blood pressure is 140/80, respiratory rate 22 and oxygen saturation 96% via room air. GENERAL: The patient is sitting up in bed, in no acute distress. HEENT: Atraumatic and normocephalic. PERRLA. Extraocular muscles intact. NECK: Supple. No JVD. No adenopathy noted. LUNGS: Clear to auscultation. No adventitious sounds. HEART: S1 and S2, normal rate and rhythm. No murmurs, rubs or gallops. ABDOMEN: Soft, nontender and nondistended. Bowel sounds present. EXTREMITIES: No clubbing, no cyanosis. Peripheral pulses 2+ bilaterally. NEUROLOGIC: The patient is alert, oriented to person, place, month and year. Speech is fluent without any errors. Cranial nerves II through XII intact. Motor exam: Moves all extremities equally except for residual left-sided weakness prior to CVA. Weightbear on the left is weaker than the right. Sensory exam: Light touch, pinprick and proprioception and vibration intact. DTRs are 2+ throughout and 1 at both knees and ankles. Coordination: Kskkez-yd-[id number] intact. No dysmetria noted. Gait is deferred for now. ASSESSMENT AND PLAN: This is a 72-year-old male with past medical history of hypertension, hypothyroidism, history of cerebrovascular accident with residual mild left-sided weakness, status post fall after losing balance, sustained left subdural hematoma in the left hemispheric convexity, which is aowfvquy-er-qhfhlyd shift, therefore status post evacuation and craniotomy at [facility], which he tolerated well. His subdural have repeat CAT scan. Neurosurgery is on board and he was also getting treatment for chronic obstructive pulmonary disease exacerbation. He was mildly deconditioned and he is currently at [facility] for rehabilitation. At this time, I recommend, 1. Continue with Neurosurgery's recommendation by Dr. Hunter. 2. Hold antiplatelet medication such as aspirin for two weeks in the onset of the bleed. 3. Keep blood pressure between 130 to 140 systolic and diastolic between 70 to 80 and avoid fluctuations in blood pressure. 4. Monitor electrolytes and correct accordingly. Continue with his acute rehab. Thank you for this consult. Jem Martell MD
[2018-05-07] MEDS: Tmp-Smz 800 mg-160 mg DS Tab PO SCH ×2 (08:38→21:25)
--- NOTE | 2018-05-07 09:58 | CP.PCM.HP ---
History of Present Illness - History of Present Illness History of Present Illness: This is a 72 y/o male with hx of CVA with left hemiplegia a year ago is and now readmitted for acute rehab. He had a recent craniotomy for left SDH and presents with right side weakness. He had a fall at home resulting to SDH. Medical Hx: HTN BPH Hyperglycemia from steroids Present on Admission - Present on Admission Any Indicators Present on Admission: No History of DVT/PE: No History of Uncontrolled Diabetes: No Urinary Catheter: No Review of Systems - Musculoskeletal Musculoskeletal: Abnormal Gait Past Patient History - Infectious Disease Hx of Infectious Diseases: None - Tetanus Immunizations Tetanus Immunization: Unknown - Past Medical History & Family History Past Medical History?: Yes - Past Social History Smoking Status: Never Smoked Alcohol: None Drugs: Denies Home Situation {Lives}: With Family (+elev) - CARDIAC Hx Hypertension: Yes - PULMONARY Hx Chronic Obstructive Pulmonary Disease (COPD): Yes - NEUROLOGICAL HX Cerebrovascular Accident: Yes (L sided weakness) - HEENT Hx Cataracts: Yes (b/l cataract removal) Other/Comment: tonsillectomy - RENAL Hx Chronic Kidney Disease: No - ENDOCRINE/METABOLIC Hx Hypothyroidism: Yes - HEMATOLOGICAL/ONCOLOGICAL Hx AIDS: No Hx Blood Transfusions: No Hx Blood Transfusion Reaction: No Hx Human Immunodeficiency Virus (HIV): No - INTEGUMENTARY Hx Dermatological Problems: No - MUSCULOSKELETAL/RHEUMATOLOGICAL Hx Falls: Yes - GASTROINTESTINAL Other/Comment: inguinal hernia repair - GENITOURINARY/GYNECOLOGICAL Hx Genitourinary Disorders: No - PSYCHIATRIC Hx Substance Use: No - SURGICAL HISTORY Hx Surgeries: Yes - ANESTHESIA Hx Anesthesia Reactions: No Hx Malignant Hyperthermia: No Meds Allergies/Adverse Reactions: Allergies Allergy/AdvReac Type Severity Reaction Status Date / Time No Known Allergies Allergy Verified 05/04/18 15:55 Physical Exam - Head Exam Head Exam: NORMAL INSPECTION - Eye Exam Eye Exam: Normal appearance - ENT Exam ENT Exam: Mucous Membranes Moist - Respiratory Exam Respiratory Exam: Clear to Auscultation Bilateral - Cardiovascular Exam Cardiovascular Exam: REGULAR RHYTHM - GI/Abdominal Exam GI & Abdominal Exam: Normal Bowel Sounds - Neurological Exam Neurological exam: Abnormal Gait Additional comments: left hemiplegia right hemiparesis - Psychiatric Exam Psychiatric exam: Flat Affect - Skin Skin Exam: Dry Results - Vital Signs Recent Vital Signs: Last Vital Signs Temp 98.1 F 05/07/18 07:44 Pulse 72 05/07/18 07:44 Resp 20 05/07/18 07:44 BP 134/73 05/07/18 08:39 Pulse Ox 95 05/07/18 07:44 - Labs Result Diagrams: 05/05/18 05:30 05/07/18 06:00 Labs: Laboratory Results - last 24 hr 05/07/18 05/07/18 05:07 06:00 Sodium 128 L Potassium 3.9 Chloride 99 Carbon Dioxide 20 L Anion Gap 13 BUN 15 Creatinine 0.8 Est GFR ( Amer) > 60 Est GFR (Non-Af Amer) > 60 POC Glucose (mg/dL) 114 H Random Glucose 103 Calcium 7.7 L Assessment & Plan (1) Neurologic gait dysfunction Status: Acute (2) Status post CVA Status: Acute (3) History of subdural hematoma (post traumatic) Status: Acute (4) Hypertension Status: Acute - Assessment and Plan (Free Text) Plan: PT low salt diet Bp meds monitor BP check lipids A`1c
--- NOTE | 2018-05-07 10:07 | CP.PCM.PN ---
Subjective - Date & Time of Evaluation Date of Evaluation: 05/07/18 Time of Evaluation: 10:07 - Subjective Subjective: Patient still feels very weak sodium was 128 yesterday Has no chest pain or SOB Has a lot of difficulty with PT Objective - Vital Signs/Intake and Output Vital Signs (last 24 hours): Temp Pulse Resp BP Pulse Ox 98.1 F 72 20 134/73 95 05/07/18 07:44 05/07/18 07:44 05/07/18 07:44 05/07/18 08:39 05/07/18 07:44 Intake and Output: 05/07/18 05/07/18 06:59 18:59 Intake Total 1200 Output Total 800 Balance 400 - Medications Medications: Current Medications Acetaminophen (Tylenol 325mg Tab) 650 mg PO Q6 PRN PRN Reason: Headache Last Admin: 05/04/18 23:28 Dose: 650 mg Albuterol/Ipratropium (Duoneb 3 Mg/0.5 Mg (3 Ml) Ud) 3 ml IH RQ6 [facility] Last Admin: 05/07/18 07:16 Dose: 3 ml Allopurinol (Zyloprim) 300 mg PO DAILY [facility] Last Admin: 05/07/18 08:39 Dose: 300 mg Amlodipine Besylate (Norvasc) 10 mg PO DAILY [facility] Last Admin: 05/07/18 08:39 Dose: 10 mg Atenolol (Tenormin) 25 mg PO Q12 [facility] Last Admin: 05/07/18 08:38 Dose: 25 mg Atorvastatin Calcium (Lipitor) 80 mg PO HS [facility] Last Admin: 05/06/18 21:19 Dose: 80 mg Docusate Sodium (Colace) 100 mg PO BID [facility] Last Admin: 05/07/18 08:37 Dose: 100 mg Famotidine (Pepcid) 40 mg PO HS [facility] Last Admin: 05/06/18 21:18 Dose: 40 mg Gabapentin (Neurontin) 600 mg PO DAILY [facility] Last Admin: 05/07/18 08:38 Dose: 600 mg Hydralazine HCl (Apresoline) 25 mg PO Q8 PRN PRN Reason: for systolic bp >160mmhg Sodium Chloride (Sodium Chloride 0.9%) 1,000 mls @ 80 mls/hr IV .[id number] [facility] Stop: 05/07/18 13:18 Last Admin: 05/07/18 02:10 Dose: 80 mls/hr Losartan Potassium (Cozaar) 100 mg PO DAILY [facility] Last Admin: 05/07/18 08:39 Dose: 100 mg Magnesium Hydroxide (Milk Of Magnesia) 30 ml PO DAILY PRN PRN Reason: Constipation Last Admin: 05/05/18 21:49 Dose: 30 ml Methylprednisolone (Medrol) 4 mg PO BID [facility] Stop: 05/07/18 17:01 Methylprednisolone (Medrol) 4 mg PO 0900 [facility] Stop: 05/08/18 09:01 Tamsulosin HCl (Flomax) 0.4 mg PO HS [facility] Last Admin: 05/06/18 21:18 Dose: 0.4 mg Trimethoprim/Sulfamethoxazole (Bactrim Ds Tab) 1 tab PO Q12 [facility] PRN Reason: Protocol Last Admin: 05/07/18 08:38 Dose: 1 tab - Labs Labs: 05/05/18 05:30 05/07/18 06:00 - Head Exam Head Exam: NORMAL INSPECTION - Eye Exam Eye Exam: Normal appearance - ENT Exam ENT Exam: Mucous Membranes Moist - Respiratory Exam Respiratory Exam: Clear to Ausculation Bilateral - Cardiovascular Exam Cardiovascular Exam: REGULAR RHYTHM - GI/Abdominal Exam GI & Abdominal Exam: Normal Bowel Sounds - Neurological Exam Neurological Exam: Awake, Oriented x3 - Psychiatric Exam Psychiatric exam: Normal Mood Assessment and Plan (1) Neurologic gait dysfunction Status: Acute (2) Status post CVA Status: Acute (3) History of subdural hematoma (post traumatic) Status: Acute (4) Hypertension Status: Chronic (5) BPH (benign prostatic hyperplasia) Status: Acute (6) Hyperlipidemia Status: Acute - Assessment and Plan (Free Text) Plan: Con tmeds monitor sodium Cont fluid restriction contmeds cont PT
--- NOTE | 2018-05-07 10:07 | CP.PCM.PN ---
Subjective - Date & Time of Evaluation Date of Evaluation: 05/06/18 Time of Evaluation: 12:40 - Subjective Subjective: Patient remains stable On max assist. Noted hyperglycemia Has no headaches Objective - Vital Signs/Intake and Output Vital Signs (last 24 hours): Temp Pulse Resp BP Pulse Ox 98.1 F 72 20 134/73 95 05/07/18 07:44 05/07/18 07:44 05/07/18 07:44 05/07/18 08:39 05/07/18 07:44 Intake and Output: 05/07/18 05/07/18 06:59 18:59 Intake Total 1200 Output Total 800 Balance 400 - Medications Medications: Current Medications Acetaminophen (Tylenol 325mg Tab) 650 mg PO Q6 PRN PRN Reason: Headache Last Admin: 05/04/18 23:28 Dose: 650 mg Albuterol/Ipratropium (Duoneb 3 Mg/0.5 Mg (3 Ml) Ud) 3 ml IH RQ6 [facility] Last Admin: 05/07/18 07:16 Dose: 3 ml Allopurinol (Zyloprim) 300 mg PO DAILY [facility] Last Admin: 05/07/18 08:39 Dose: 300 mg Amlodipine Besylate (Norvasc) 10 mg PO DAILY [facility] Last Admin: 05/07/18 08:39 Dose: 10 mg Atenolol (Tenormin) 25 mg PO Q12 [facility] Last Admin: 05/07/18 08:38 Dose: 25 mg Atorvastatin Calcium (Lipitor) 80 mg PO HS [facility] Last Admin: 05/06/18 21:19 Dose: 80 mg Docusate Sodium (Colace) 100 mg PO BID [facility] Last Admin: 05/07/18 08:37 Dose: 100 mg Famotidine (Pepcid) 40 mg PO HS [facility] Last Admin: 05/06/18 21:18 Dose: 40 mg Gabapentin (Neurontin) 600 mg PO DAILY [facility] Last Admin: 05/07/18 08:38 Dose: 600 mg Hydralazine HCl (Apresoline) 25 mg PO Q8 PRN PRN Reason: for systolic bp >160mmhg Sodium Chloride (Sodium Chloride 0.9%) 1,000 mls @ 80 mls/hr IV .[id number] [facility] Stop: 05/07/18 13:18 Last Admin: 05/07/18 02:10 Dose: 80 mls/hr Losartan Potassium (Cozaar) 100 mg PO DAILY [facility] Last Admin: 05/07/18 08:39 Dose: 100 mg Magnesium Hydroxide (Milk Of Magnesia) 30 ml PO DAILY PRN PRN Reason: Constipation Last Admin: 05/05/18 21:49 Dose: 30 ml Methylprednisolone (Medrol) 4 mg PO BID [facility] Stop: 05/07/18 17:01 Methylprednisolone (Medrol) 4 mg PO 0900 [facility] Stop: 05/08/18 09:01 Tamsulosin HCl (Flomax) 0.4 mg PO HS [facility] Last Admin: 05/06/18 21:18 Dose: 0.4 mg Trimethoprim/Sulfamethoxazole (Bactrim Ds Tab) 1 tab PO Q12 [facility] PRN Reason: Protocol Last Admin: 05/07/18 08:38 Dose: 1 tab - Labs Labs: 05/05/18 05:30 05/07/18 06:00 - Head Exam Head Exam: NORMAL INSPECTION - Eye Exam Eye Exam: Normal appearance - ENT Exam ENT Exam: Mucous Membranes Moist - Respiratory Exam Respiratory Exam: Clear to Ausculation Bilateral - Cardiovascular Exam Cardiovascular Exam: REGULAR RHYTHM - GI/Abdominal Exam GI & Abdominal Exam: Normal Bowel Sounds - Neurological Exam Neurological Exam: Awake Additional comments: left hemiplegia right hemiparesis Assessment and Plan (1) Neurologic gait dysfunction Status: Acute (2) Status post CVA Status: Acute (3) History of subdural hematoma (post traumatic) Status: Acute (4) Hypertension Status: Acute - Assessment and Plan (Free Text) Plan: Cont meds Cont tx Cont PT check A1c
--- NOTE | 2018-05-07 19:09 | CP.PCM.PN ---
Subjective - Date & Time of Evaluation Date of Evaluation: 05/07/18 Time of Evaluation: 19:09 - Subjective Subjective: Patient seen in the room left tiara, facial ecchymosis pain is controlled skin intact outside of the tiara continue current care Objective - Vital Signs/Intake and Output Vital Signs (last 24 hours): Temp Pulse Resp BP Pulse Ox 98.1 F 74 20 134/73 95 05/07/18 07:44 05/07/18 08:50 05/07/18 07:44 05/07/18 08:39 05/07/18 07:44 Intake and Output: 05/07/18 05/08/18 18:59 06:59 Intake Total 1060 Output Total 1080 Balance -20 - Medications Medications: Current Medications Acetaminophen (Tylenol 325mg Tab) 650 mg PO Q6 PRN PRN Reason: Headache Last Admin: 05/04/18 23:28 Dose: 650 mg Albuterol/Ipratropium (Duoneb 3 Mg/0.5 Mg (3 Ml) Ud) 3 ml IH RQ6 [facility] Last Admin: 05/07/18 13:33 Dose: 3 ml Allopurinol (Zyloprim) 300 mg PO DAILY [facility] Last Admin: 05/07/18 08:39 Dose: 300 mg Amlodipine Besylate (Norvasc) 10 mg PO DAILY [facility] Last Admin: 05/07/18 08:39 Dose: 10 mg Atenolol (Tenormin) 25 mg PO Q12 [facility] Last Admin: 05/07/18 08:38 Dose: 25 mg Atorvastatin Calcium (Lipitor) 80 mg PO HS [facility] Last Admin: 05/06/18 21:19 Dose: 80 mg Bisacodyl (Dulcolax) 10 mg [place] DAILY PRN PRN Reason: Constipation Last Admin: 05/07/18 17:10 Dose: 10 mg Docusate Sodium (Colace) 100 mg PO BID [facility] Last Admin: 05/07/18 17:06 Dose: 100 mg Famotidine (Pepcid) 40 mg PO HS [facility] Last Admin: 05/06/18 21:18 Dose: 40 mg Gabapentin (Neurontin) 600 mg PO DAILY [facility] Last Admin: 05/07/18 08:38 Dose: 600 mg Hydralazine HCl (Apresoline) 25 mg PO Q8 PRN PRN Reason: for systolic bp >160mmhg Lactulose (Enulose) 20 gm PO 1700 [facility] Last Admin: 05/07/18 17:10 Dose: 20 gm Losartan Potassium (Cozaar) 100 mg PO DAILY [facility] Last Admin: 05/07/18 08:39 Dose: 100 mg Magnesium Hydroxide (Milk Of Magnesia) 30 ml PO DAILY PRN PRN Reason: Constipation Last Admin: 05/05/18 21:49 Dose: 30 ml Methylprednisolone (Medrol) 4 mg PO 0900 [facility] Stop: 05/08/18 09:01 Tamsulosin HCl (Flomax) 0.4 mg PO HS [facility] Last Admin: 05/06/18 21:18 Dose: 0.4 mg Trimethoprim/Sulfamethoxazole (Bactrim Ds Tab) 1 tab PO Q12 [facility] PRN Reason: Protocol Last Admin: 05/07/18 08:38 Dose: 1 tab Zolpidem Tartrate (Ambien) 5 mg PO HS PRN PRN Reason: Insomnia - Labs Labs: 05/05/18 05:30 05/07/18 06:00
[2018-05-08] MEDS: Albuterol-Ipratrop 3 mg / 0.5 (3 ml) UD IH SCH ×4 (01:00→19:23)
[2018-05-08 07:12] LABS: ALB/GLOB RATIO 1.2 (1.0-2.1); ALBUMIN 3.7 g/dL (3.5-5.0); ALT/SGPT 86 U/L (21-72); AST/SGOT 43 U/L (17-59); BLOOD UREA NITROGEN 17 mg/dl (9-20); CALCIUM 8.2 mg/dL (8.4-10.2); GFR AFRICAN-AMERICAN > 60; GFR NON-AFRICAN AMERICAN > 60
[2018-05-08] MEDS: Tmp-Smz 800 mg-160 mg DS Tab PO SCH ×2 (08:10→21:30)
--- NOTE | 2018-05-08 13:15 | PSY.TMCNF ---
Nursing - Vital Signs Vital Signs (Last 8 hours): Vital Signs 05/08/18 05/08/18 05/08/18 08:10 08:12 08:13 Temperature Pulse Rate 70 78 78 Respiratory Rate Blood Pressure 144/78 144/78 144/71 O2 Sat by Pulse Oximetry 05/08/18 05/08/18 09:00 09:24 Temperature 98 F 97.5 F L Pulse Rate 78 78 Respiratory 20 Rate Blood Pressure 144/71 144/73 O2 Sat by Pulse 98 Oximetry Pain: 4 - Medications/Other Issues Comment: Pt is at high nutrition risk. Goals-. 1: Consume >75% of meals. 2: Maintain wt within 2-3 lbs. of current wt. Follow-up assessment due by 2017. - Skin Incision Site: Left parietal area Incision: [place] Intact, Sutures Intact, No Drainage Noted Incision Line Treatment: Open to air - Bladder Management Bladder Pattern: Normal Voiding Method: Urinal - Bowel Management Bowel Pattern: Normal - Patient/Family Teaching Comments: N/A - Goals/Time Frame Comments: Pt was seen awake and alert sitting in his wheelchair in his room. Pt was agreeable to participate in recreation therapy session. Pt was re-oriented to benefits and purpose of participating in recreation therapy sessions on stay on unit. Pt recalled being on this unit in June 2017 for CVA. Pt recalled that fell twice at home and reported that his neighbor found him and called 911. Pt was able to identify his leisure interests such as watching television, cooking, and attending buddhism services and prayer groups weekly. Pt reported that he has some remaining weakness from the CVA in June. Pt cannot recall what devices he uses in the community. Pt has meals on wheels delivery to home. Pt participated in connect four task and required min verbal cues for problem solving and carryover of objective of task. Pt participated in two rounds of task. Pt received visit from at end of session. Call [place] within reach. Physical Therapy - Bed Mobility Bed Mobility: Contact Guard - Transfers Sit to Stand: Contact Guard - Ambulation Level of Assistance: Contact Guard Distance (ft.): 55 Assistive Devices: Rolling Walker - Stair Negotiation Stairs: Level of Assistance: Not Tested - Standing Balance Static Stand: Contact Guard Assist Dynamic Stand: Minimal Assistance - Pain Pain (assessed during therapy session): 0 Management Techniques: Medication - Insight/Carryover Insight/Carryover: Fair - Patient/Family Education Comment: Pt education provided for increased safety and proper techniques during functional mobiltiy training. - Assessment/Plan Assessment: Pt is a 72 year old R handed male with dx: subdural hematoma from fall. Precautions: seizures, aspiration precautions, falls(w/c and bed alarm). Pt limited by the following: impaired balance sitting and standing, mpaired BUE strength, tone and AROM brandee on LUE/LLE 2' old R CVA, impaired safety, impaired safety awareness, impaired endurance/activity tolerance, impaired cognition .There aforementioned which impact on performance in self care, transfers/ mobility and Iadls. patient able to complete ub self care with min A and lb dressing/bathing with min-mod A . Mr. Pineda is able to complete transfers with cga/min A. Pt will continue skilled OT to maximize function in self car, transfers/mobility and Iadls using adaptive/compensatory strategies. - Goals Timeframe: 2 weeks Goals: *Goal: CG/min assist and verbal cues overall for adls, transfers & mobility & caregiver to be I assisting pt with dailyliving tasks. - Provider Therapist: Indiana Jurado PT, DPT License Number: [id number] Occupational Therapy - Arousal/Attention/Orientation Level of Consciousness: Awake, Alert, Lethargic Patient Orientation: Person, Place, Time, Appropriate to Age, Appropriate to Situation - ADL/IADL Self Feeding: Supervision, Verbal Cues Grooming: Verbal Cues, Set-up Help, Minimal Assistance Dressing-Upper Extremity: Verbal Cues, Set-up Help, Minimal Assistance Dressing-Lower Extremity: Minimal Assistance, Moderate Assistance Comment: Bathing: TBA - Sitting Balance Static Sitting: Contact Guard Assist Dynamic Sitting: Reaches across midline, Reaches out of base of support, Reaches within base of support - Transfers Wheelchair to Bed Transfers: Verbal Cues, Set-up Help, Minimal Assistance Toilet Transfers: Verbal Cues, Set-up Help, Minimal Assistance - Wheelchair Management Level of Assistance: Minimal Assistance Distance (ft.): 50 - Upper Extremity Status Right Upper Extremity Comment: WFL Left Upper Extremity Comment: PROM is WFLs. AROM is about half Range limited by min/moderate tone from old R CVA - Pain Pain (assessed during therapy session): 0 Alleviating Techniques: Medication - Insight/Carryover Insight/Carryover: Fair - Patient/Family Education Comment: Pt education provided for increased safety and proper techniques during functional mobiltiy training. - Assessment/Plan Assessment: Pt is a 72 year old R handed male with dx: subdural hematoma from fall. Precautions: seizures, aspiration precautions, falls(w/c and bed alarm). Pt limited by the following: impaired balance sitting and standing, mpaired BUE strength, tone and AROM brandee on LUE/LLE 2' old R CVA, impaired safety, impaired safety awareness, impaired endurance/activity tolerance, impaired cognition .There aforementioned which impact on performance in self care, transfers/ mobility and Iadls. patient able to complete ub self care with min A and lb dressing/bathing with min-mod A . Mr. Pineda is able to complete transfers with cga/min A. Pt will continue skilled OT to maximize function in self car, transfers/mobility and Iadls using adaptive/compensatory strategies. - Goals Timeframe: 2 weeks Goals: *Goal: CG/min assist and verbal cues overall for adls, transfers & mobility & caregiver to be I assisting pt with dailyliving tasks. - Provider Therapist: CARLEY Domínguez License Number: [id number] Speech Therapy - Consult Information Patient on Program: Yes Medical Diagnosis: L SDH Treatment Diagnosis: moderate cognitive deficits - Assessment Expressive Language Impairment: Mild Receptive Language Impairment: Moderate Problem Solving Impairment: Moderate Memory Impairment: Moderate - Plan Assessment: Pt is a 72 year old R handed male with dx: subdural hematoma from fall. Precautions: seizures, aspiration precautions, falls(w/c and bed alarm). Pt limited by the following: impaired balance sitting and standing, mpaired BUE strength, tone and AROM brandee on LUE/LLE 2' old R CVA, impaired safety, impaired safety awareness, impaired endurance/activity tolerance, impaired cognition .There aforementioned which impact on performance in self care, transfers/ mobility and Iadls. patient able to complete ub self care with min A and lb dressing/bathing with min-mod A . Mr. Pineda is able to complete transfers with cga/min A. Pt will continue skilled OT to maximize function in self car, transfers/mobility and Iadls using adaptive/compensatory strategies. - Provider Therapist: Keely Zabala License Number: [id number] Recreational Therapy - Participation Participation: Participates in Individual and/or Group Sessions - Attendance Attendance: 3-5 times per week - Activities Leisure Activities: Cards and Games - Socialization Level of Socialization: Initiates/interacts freely with care givers and peer - Assessment Assessment/Plan: Pt is a 72 year old R handed male with dx: subdural hematoma from fall. Precautions: seizures, aspiration precautions, falls(w/c and bed alarm). Pt limited by the following: impaired balance sitting and standing, mpaired BUE strength, tone and AROM brandee on LUE/LLE 2' old R CVA, impaired safety , impaired safety awareness, impaired endurance/activity tolerance, impaired cognition .There aforementioned which impact on performance in self care, transfers/mobility and Iadls. patient able to complete ub self care with min A and lb dressing/bathing with min-mod A . Mr. Pineda is able to complete transfers with cga/min A. Pt will continue skilled OT to maximize function in self car, transfers/mobility and Iadls using adaptive/compensatory strategies. - Provider Therapist: Alta Booth, DIETIST #[id number] Nutrition - Current Diet Current Diet/ Supplement/ Feedings: 2 gm Na diet with 1000 mL fluid restriction , Ensure Plus BID - Appetite Percent Meal Consumed: 75-100% - Comments Comments: N/A - Assessment/Goals/Time Frame Assessment/Goals/Time Frame: Pt is at high nutrition risk. Goals-. 1: Consume >75% of meals. 2: Maintain wt within 2-3 lbs. of current wt. Follow-up assessment due by 05/11/2018. - Provider Provider: Latosha Perez MS, RD Rehabilitation Plan - Treatment Plan Treatment Plan: Physical Therapy, Occupational Therapy, Speech, Dietary, Patient /Family Education - Discharge Plan Discharge to: Subacute
--- NOTE | 2018-05-08 13:44 | CP.PCM.PN ---
Subjective - Date & Time of Evaluation Date of Evaluation: 05/08/18 Time of Evaluation: 13:43 - Subjective Subjective: Patient seen in the room doing ok more energetic now discussed his left AFO and his friend will try and bring it in continue current care Objective - Vital Signs/Intake and Output Vital Signs (last 24 hours): Temp Pulse Resp BP Pulse Ox 97.5 F L 78 20 144/73 98 05/08/18 09:24 05/08/18 09:24 05/08/18 09:24 05/08/18 09:24 05/08/18 09:24 Intake and Output: 05/08/18 05/08/18 06:59 18:59 Intake Total 230 Output Total 850 Balance -620 - Medications Medications: Current Medications Acetaminophen (Tylenol 325mg Tab) 650 mg PO Q6 PRN PRN Reason: Headache Last Admin: 05/04/18 23:28 Dose: 650 mg Albuterol/Ipratropium (Duoneb 3 Mg/0.5 Mg (3 Ml) Ud) 3 ml IH RQ6 [facility] Last Admin: 05/08/18 13:34 Dose: 3 ml Allopurinol (Zyloprim) 300 mg PO DAILY [facility] Last Admin: 05/08/18 08:12 Dose: 300 mg Amlodipine Besylate (Norvasc) 10 mg PO DAILY [facility] Last Admin: 05/08/18 08:12 Dose: 10 mg Atenolol (Tenormin) 25 mg PO Q12 [facility] Last Admin: 05/08/18 08:13 Dose: 25 mg Atorvastatin Calcium (Lipitor) 80 mg PO HS [facility] Last Admin: 05/07/18 21:26 Dose: 80 mg Bisacodyl (Dulcolax) 10 mg [place] DAILY PRN PRN Reason: Constipation Last Admin: 05/07/18 17:10 Dose: 10 mg Docusate Sodium (Colace) 100 mg PO BID [facility] Last Admin: 05/08/18 08:11 Dose: 100 mg Famotidine (Pepcid) 40 mg PO HS [facility] Last Admin: 05/07/18 21:26 Dose: 40 mg Gabapentin (Neurontin) 600 mg PO DAILY [facility] Last Admin: 05/08/18 08:11 Dose: 600 mg Hydralazine HCl (Apresoline) 25 mg PO Q8 PRN PRN Reason: for systolic bp >160mmhg Last Admin: 05/08/18 08:12 Dose: 25 mg Lactulose (Enulose) 20 gm PO 1700 [facility] Last Admin: 05/07/18 17:10 Dose: 20 gm Losartan Potassium (Cozaar) 100 mg PO DAILY [facility] Last Admin: 05/08/18 08:10 Dose: 100 mg Magnesium Hydroxide (Milk Of Magnesia) 30 ml PO DAILY PRN PRN Reason: Constipation Last Admin: 05/05/18 21:49 Dose: 30 ml Tamsulosin HCl (Flomax) 0.4 mg PO HS [facility] Last Admin: 05/07/18 21:26 Dose: 0.4 mg Trimethoprim/Sulfamethoxazole (Bactrim Ds Tab) 1 tab PO Q12 [facility] PRN Reason: Protocol Last Admin: 05/08/18 08:10 Dose: 1 tab Zolpidem Tartrate (Ambien) 5 mg PO HS PRN PRN Reason: Insomnia - Labs Labs: 05/05/18 05:30 05/08/18 05:20
[2018-05-09] MEDS: Albuterol-Ipratrop 3 mg / 0.5 (3 ml) UD IH SCH ×4 (02:20→19:20)
[2018-05-09] MEDS: Tmp-Smz 800 mg-160 mg DS Tab PO SCH ×2 (08:34→21:37)
--- NOTE | 2018-05-09 11:25 | CP.PCM.PN ---
Subjective - Date & Time of Evaluation Date of Evaluation: 05/08/18 Time of Evaluation: 10:00 - Subjective Subjective: Patient remains stable Has minimal pain Noted improved motor functions and noted to be more alert, sodium is 129 Has improved with PT Has problems with insomnia Objective - Vital Signs/Intake and Output Vital Signs (last 24 hours): Temp Pulse Resp BP Pulse Ox 98.1 F 74 18 132/73 94 L 05/09/18 09:40 05/09/18 09:40 05/09/18 09:40 05/09/18 09:40 05/09/18 09:40 Intake and Output: 05/09/18 05/09/18 06:59 18:59 Intake Total 150 Balance 150 - Medications Medications: Current Medications Acetaminophen (Tylenol 325mg Tab) 650 mg PO Q6 PRN PRN Reason: Headache Last Admin: 05/04/18 23:28 Dose: 650 mg Albuterol/Ipratropium (Duoneb 3 Mg/0.5 Mg (3 Ml) Ud) 3 ml IH RQ6 [facility] Last Admin: 05/09/18 07:36 Dose: 3 ml Allopurinol (Zyloprim) 300 mg PO DAILY [facility] Last Admin: 05/09/18 08:34 Dose: 300 mg Amlodipine Besylate (Norvasc) 10 mg PO DAILY [facility] Last Admin: 05/09/18 08:33 Dose: 10 mg Atenolol (Tenormin) 25 mg PO Q12 [facility] Last Admin: 05/09/18 08:36 Dose: 25 mg Atorvastatin Calcium (Lipitor) 80 mg PO HS [facility] Last Admin: 05/08/18 22:39 Dose: 80 mg Bisacodyl (Dulcolax) 10 mg [place] DAILY PRN PRN Reason: Constipation Last Admin: 05/07/18 17:10 Dose: 10 mg Docusate Sodium (Colace) 100 mg PO BID [facility] Last Admin: 05/09/18 08:34 Dose: 100 mg Famotidine (Pepcid) 40 mg PO HS [facility] Last Admin: 05/08/18 21:32 Dose: 40 mg Gabapentin (Neurontin) 600 mg PO DAILY [facility] Last Admin: 05/09/18 08:35 Dose: 600 mg Hydralazine HCl (Apresoline) 25 mg PO Q8 PRN PRN Reason: for systolic bp >160mmhg Last Admin: 05/08/18 08:12 Dose: 25 mg Lactulose (Enulose) 20 gm PO 1700 [facility] Last Admin: 05/08/18 17:18 Dose: 20 gm Losartan Potassium (Cozaar) 100 mg PO DAILY [facility] Last Admin: 05/09/18 08:35 Dose: 100 mg Magnesium Hydroxide (Milk Of Magnesia) 30 ml PO DAILY PRN PRN Reason: Constipation Last Admin: 05/05/18 21:49 Dose: 30 ml Tamsulosin HCl (Flomax) 0.4 mg PO HS [facility] Last Admin: 05/08/18 21:31 Dose: 0.4 mg Trimethoprim/Sulfamethoxazole (Bactrim Ds Tab) 1 tab PO Q12 [facility] PRN Reason: Protocol Last Admin: 05/09/18 08:34 Dose: 1 tab Zolpidem Tartrate (Ambien) 5 mg PO HS PRN PRN Reason: Insomnia - Labs Labs: 05/05/18 05:30 05/08/18 05:20 - Eye Exam Eye Exam: Normal appearance - ENT Exam ENT Exam: Mucous Membranes Moist - Respiratory Exam Respiratory Exam: Clear to Ausculation Bilateral - Cardiovascular Exam Cardiovascular Exam: REGULAR RHYTHM - GI/Abdominal Exam GI & Abdominal Exam: Normal Bowel Sounds - Neurological Exam Neurological Exam: Awake, Oriented x3 Assessment and Plan (1) Neurologic gait dysfunction Status: Acute (2) Status post CVA Status: Acute (3) History of subdural hematoma (post traumatic) Status: Acute (4) Hypertension Status: Chronic - Assessment and Plan (Free Text) Plan: Con tmeds Con ttx monitor sodium cont fluid restriction
--- NOTE | 2018-05-09 11:26 | CP.PCM.PN ---
Subjective - Date & Time of Evaluation Date of Evaluation: 05/09/18 Time of Evaluation: 11:25 - Subjective Subjective: Patient remains well Is more alert Noted accucheck to be better BP is controlled. Has no chest pain or SOB Noted being sleepy whilein PT On gabapentin bid Has no chestpain or SOB. Objective - Vital Signs/Intake and Output Vital Signs (last 24 hours): Temp Pulse Resp BP Pulse Ox 98.1 F 74 18 132/73 94 L 05/09/18 09:40 05/09/18 09:40 05/09/18 09:40 05/09/18 09:40 05/09/18 09:40 Intake and Output: 05/09/18 05/09/18 06:59 18:59 Intake Total 150 Balance 150 - Medications Medications: Current Medications Acetaminophen (Tylenol 325mg Tab) 650 mg PO Q6 PRN PRN Reason: Headache Last Admin: 05/04/18 23:28 Dose: 650 mg Albuterol/Ipratropium (Duoneb 3 Mg/0.5 Mg (3 Ml) Ud) 3 ml IH RQ6 [facility] Last Admin: 05/09/18 07:36 Dose: 3 ml Allopurinol (Zyloprim) 300 mg PO DAILY [facility] Last Admin: 05/09/18 08:34 Dose: 300 mg Amlodipine Besylate (Norvasc) 10 mg PO DAILY [facility] Last Admin: 05/09/18 08:33 Dose: 10 mg Atenolol (Tenormin) 25 mg PO Q12 [facility] Last Admin: 05/09/18 08:36 Dose: 25 mg Atorvastatin Calcium (Lipitor) 80 mg PO HS [facility] Last Admin: 05/08/18 22:39 Dose: 80 mg Bisacodyl (Dulcolax) 10 mg [place] DAILY PRN PRN Reason: Constipation Last Admin: 05/07/18 17:10 Dose: 10 mg Docusate Sodium (Colace) 100 mg PO BID [facility] Last Admin: 05/09/18 08:34 Dose: 100 mg Famotidine (Pepcid) 40 mg PO HS [facility] Last Admin: 05/08/18 21:32 Dose: 40 mg Gabapentin (Neurontin) 600 mg PO DAILY [facility] Last Admin: 05/09/18 08:35 Dose: 600 mg Hydralazine HCl (Apresoline) 25 mg PO Q8 PRN PRN Reason: for systolic bp >160mmhg Last Admin: 05/08/18 08:12 Dose: 25 mg Lactulose (Enulose) 20 gm PO 1700 [facility] Last Admin: 05/08/18 17:18 Dose: 20 gm Losartan Potassium (Cozaar) 100 mg PO DAILY [facility] Last Admin: 05/09/18 08:35 Dose: 100 mg Magnesium Hydroxide (Milk Of Magnesia) 30 ml PO DAILY PRN PRN Reason: Constipation Last Admin: 05/05/18 21:49 Dose: 30 ml Tamsulosin HCl (Flomax) 0.4 mg PO HS [facility] Last Admin: 05/08/18 21:31 Dose: 0.4 mg Trimethoprim/Sulfamethoxazole (Bactrim Ds Tab) 1 tab PO Q12 [facility] PRN Reason: Protocol Last Admin: 05/09/18 08:34 Dose: 1 tab Zolpidem Tartrate (Ambien) 5 mg PO HS PRN PRN Reason: Insomnia - Labs Labs: 05/05/18 05:30 05/08/18 05:20 - Eye Exam Eye Exam: Normal appearance - ENT Exam ENT Exam: Mucous Membranes Moist - Respiratory Exam Respiratory Exam: Clear to Ausculation Bilateral - Cardiovascular Exam Cardiovascular Exam: REGULAR RHYTHM - GI/Abdominal Exam GI & Abdominal Exam: Normal Bowel Sounds - Neurological Exam Neurological Exam: CN II-XII Intact, Oriented x3 - Psychiatric Exam Psychiatric exam: Normal Mood - Skin Skin Exam: Normal Color Assessment and Plan (1) Neurologic gait dysfunction Status: Acute (2) Status post CVA Status: Acute (3) History of subdural hematoma (post traumatic) Status: Acute (4) Hypertension Status: Chronic - Assessment and Plan (Free Text) Plan: Con tmeds Cont tx Cont PT monitor cbc cmp adjust meds.
[2018-05-10] MEDS: Albuterol-Ipratrop 3 mg / 0.5 (3 ml) UD IH SCH ×4 (01:10→19:18)
[2018-05-10 08:44] LABS: URINE BILIRUBIN NEGATIVE (NEGATIVE); URINE BLOOD NEGATIVE (NEGATIVE); URINE CLARITY SLIGHTY-CLOUDY (Clear); URINE COLOR YELLOW (YELLOW); URINE GLUCOSE (UA) NEG (Normal); URINE LEUKOCYTE ESTERASE NEG Leu/uL (Negative); URINE PROTEIN NEGATIVE (NEGATIVE); URINE UROBILINOGEN 0.2-1.0 mg/dL (0.2-1.0)
[2018-05-11] MEDS: Albuterol-Ipratrop 3 mg / 0.5 (3 ml) UD IH SCH ×4 (01:00→19:15)
[2018-05-11 08:00] LABS: BLOOD UREA NITROGEN 21 mg/dl (9-20); CALCIUM 8.4 mg/dL (8.4-10.2); GFR AFRICAN-AMERICAN > 60; GFR NON-AFRICAN AMERICAN > 60
[2018-05-11] MEDS: Sodium Chloride 0.9% 1,000 ML IV SCH (12:50)
[2018-05-11] MEDS ORDERED: Sodium Chloride 0.9% 1,000 ML IV SCH (20:00)
[2018-05-12] MEDS: Albuterol-Ipratrop 3 mg / 0.5 (3 ml) UD IH SCH ×2 (02:00→07:36)
[2018-05-12 06:56] LABS: ALB/GLOB RATIO 1.2 (1.0-2.1); ALBUMIN 3.6 g/dL (3.5-5.0); ALT/SGPT 101 U/L (21-72); AST/SGOT 57 U/L (17-59); BLOOD UREA NITROGEN 19 mg/dl (9-20); CALCIUM 8.2 mg/dL (8.4-10.2); GFR AFRICAN-AMERICAN > 60; GFR NON-AFRICAN AMERICAN > 60
[2018-05-12] MEDS ORDERED: Albuterol-Ipratrop 3 mg / 0.5 (3 ml) UD IH PRN (08:06)
--- NOTE | 2018-05-14 16:35 | CP.PCM.PN ---
Subjective - Date & Time of Evaluation Date of Evaluation: 05/14/18 Time of Evaluation: 16:34 - Subjective Subjective: Patient seen in the room suture and tiara were due out today this was done with nursing also present all were removed without complications and well tolerated continue current care Objective - Vital Signs/Intake and Output Vital Signs (last 24 hours): Temp Pulse Resp BP Pulse Ox 97.3 F L 60 18 119/71 98 05/14/18 09:51 05/14/18 09:51 05/14/18 09:51 05/14/18 09:51 05/14/18 09:51 Intake and Output: 05/14/18 05/14/18 06:59 18:59 Intake Total 100 650 Output Total 575 Balance -475 650 - Medications Medications: Current Medications Acetaminophen (Tylenol 325mg Tab) 650 mg PO Q6 PRN PRN Reason: Headache Last Admin: 05/14/18 05:32 Dose: 650 mg Albuterol/Ipratropium (Duoneb 3 Mg/0.5 Mg (3 Ml) Ud) 3 ml IH RQ6 PRN PRN Reason: Shortness of Breath Allopurinol (Zyloprim) 300 mg PO DAILY [facility] Last Admin: 05/14/18 09:28 Dose: 300 mg Amlodipine Besylate (Norvasc) 10 mg PO DAILY [facility] Last Admin: 05/14/18 09:27 Dose: 10 mg Atenolol (Tenormin) 25 mg PO Q12 [facility] Last Admin: 05/14/18 09:28 Dose: 25 mg Atorvastatin Calcium (Lipitor) 80 mg PO HS [facility] Last Admin: 05/13/18 21:08 Dose: 80 mg Bisacodyl (Dulcolax) 10 mg [place] DAILY PRN PRN Reason: Constipation Last Admin: 05/07/18 17:10 Dose: 10 mg Docusate Sodium (Colace) 100 mg PO BID [facility] Last Admin: 05/14/18 09:26 Dose: 100 mg Escitalopram Oxalate (Lexapro) 10 mg PO DAILY [facility] Last Admin: 05/14/18 09:27 Dose: 10 mg Famotidine (Pepcid) 40 mg PO HS [facility] Last Admin: 05/13/18 21:08 Dose: 40 mg Gabapentin (Neurontin) 600 mg PO DAILY [facility] Last Admin: 05/14/18 09:27 Dose: 600 mg Hydralazine HCl (Apresoline) 25 mg PO Q8 PRN PRN Reason: for systolic bp >160mmhg Last Admin: 05/08/18 08:12 Dose: 25 mg Losartan Potassium (Cozaar) 100 mg PO DAILY [facility] Last Admin: 05/14/18 09:26 Dose: 100 mg Magnesium Hydroxide (Milk Of Magnesia) 30 ml PO DAILY PRN PRN Reason: Constipation Last Admin: 05/05/18 21:49 Dose: 30 ml Tamsulosin HCl (Flomax) 0.4 mg PO [facility] Last Admin: 05/13/18 21:08 Dose: 0.4 mg Tizanidine HCl (Zanaflex) 4 mg PO [facility] - Labs Labs: 05/05/18 05:30 05/12/18 06:18
--- NOTE | 2018-05-15 13:22 | PSY.TMCNF ---
Nursing - Vital Signs Vital Signs (Last 8 hours): Vital Signs 05/15/18 05/15/18 05/15/18 07:40 08:18 08:19 Temperature 97.9 F Pulse Rate 60 68 68 Respiratory 20 Rate Blood Pressure 123/71 145/81 145/81 O2 Sat by Pulse 98 Oximetry 05/15/18 08:20 Temperature Pulse Rate 68 Respiratory Rate Blood Pressure 145/81 O2 Sat by Pulse Oximetry Pain: 0 - Medications/Other Issues Comment: Pt at high nutritional risk. goals: 1: Consume >75% of meals- not met , continue. 2: Maintain wt within 2-3 lbs. of current wt- unknown if met, continue. Follow-up due on 05/15/2018 - Skin Incision Site: Left parietal area Incision: Nemesio Intact, Sutures Intact, No Drainage Noted Incision Line Treatment: Cleanse with NS and leave open to air - Bladder Management Bladder Pattern: Normal Voiding Method: Toilet, Urinal - Bowel Management Bowel Pattern: Normal - Patient/Family Teaching Comments: N/A - Goals/Time Frame Comments: Pt was seen awake and alert sitting in his wheelchair in his room. Pt was agreeable to participate in recreation therapy session. Pt was re-oriented to benefits and purpose of participating in recreation therapy sessions on stay on unit. Pt recalled being on this unit in June 2017 for CVA. Pt recalled that fell twice at home and reported that his neighbor found him and called 911. Pt was able to identify his leisure interests such as watching television, cooking, and attending buddhist services and prayer groups weekly. Pt reported that he has some remaining weakness from the CVA in June. Pt cannot recall what devices he uses in the community. Pt has meals on wheels delivery to home. Pt participated in connect four task and required min verbal cues for problem solving and carryover of objective of task. Pt participated in two rounds of task. Pt received visit from at end of session. Call [place] within reach. Physical Therapy - Bed Mobility Bed Mobility: Supervision, Verbal Cues, Contact Guard - Transfers Wheelchair to Mat: Supervision, Verbal Cues, Contact Guard Sit to Stand: Supervision, Verbal Cues, Contact Guard Comment: RW - Ambulation Level of Assistance: Supervision, Verbal Cues, Contact Guard Distance (ft.): 125 Assistive Devices: Rolling Walker - Stair Negotiation Stairs: Level of Assistance: Not Tested - Standing Balance Static Stand: Supervision Dynamic Stand: Contact Guard Assist, Minimal Assistance - Pain Pain (assessed during therapy session): 3 Management Techniques: Medication, Distraction, Exercise, Inactivity Comment: intermittent head aches reported today - Insight/Carryover Insight/Carryover: Fair - Patient/Family Education Comment: safety, therapy schedule, therapy goals, DME, activity tolerance, POC, use of call [place] - Assessment/Plan Assessment: Pt is agreeable to participate in 1:1 and group recreation therapy sessions. Pt participates in word finding and direction following tasks. Pt carries over task rules following orientation to tasks and required min-mod verbal cues for recalling facts on demand dependng on arousal level. Pt will use both hands throughout leisure tasks. Pt will continue to benefit from participating in recreation therapy sessions throughout stay on unit. - Goals Timeframe: 7 days Goals: ambulate 150 feet with RW with mod I. all transfers with mod I with RW. mod I with all bed/mat mobility - Provider Therapist: Eliana Purdy PT, DPT License Number: [id number] Occupational Therapy - Arousal/Attention/Orientation Patient Orientation: Person, Place, Time, Appropriate to Age, Appropriate to Situation - ADL/IADL Self Feeding: Independent, Set-up Help Grooming: Verbal Cues, Set-up Help, Minimal Assistance Dressing-Upper Extremity: Supervision, Verbal Cues, Set-up Help Dressing-Lower Extremity: Verbal Cues, Set-up Help, Contact Guard, Minimal Assistance - Sitting Balance Static Sitting: Supervision Dynamic Sitting: Reaches across midline, Reaches out of base of support, Reaches within base of support Comment: seated unsupported @ edge of bed - Transfers Wheelchair to Bed Transfers: Verbal Cues, Set-up Help, Contact Guard, Minimal Assistance Toilet Transfers: Verbal Cues, Set-up Help, Contact Guard, Minimal Assistance - Wheelchair Management Level of Assistance: Minimal Assistance Distance (ft.): 50 - Upper Extremity Status Right Upper Extremity Comment: WFL Left Upper Extremity Comment: PROM is WFLs, strength 3-/5 throughout--working out of synergy - Pain Pain (assessed during therapy session): 3 Alleviating Techniques: Medication, Distraction, Exercise, Inactivity Comment: intermittent head aches reported today - Insight/Carryover Insight/Carryover: Fair - Patient/Family Education Comment: safety, therapy schedule, therapy goals, DME, activity tolerance, POC, use of call [place] - Assessment/Plan Assessment: Pt is agreeable to participate in 1:1 and group recreation therapy sessions. Pt participates in word finding and direction following tasks. Pt carries over task rules following orientation to tasks and required min-mod verbal cues for recalling facts on demand dependng on arousal level. Pt will use both hands throughout leisure tasks. Pt will continue to benefit from participating in recreation therapy sessions throughout stay on unit. - Goals Timeframe: 7 days Goals: ambulate 150 feet with RW with mod I. all transfers with mod I with RW. mod I with all bed/mat mobility - Provider Therapist: Betsey Price, OTR/L Speech Therapy - Consult Information Patient on Program: Yes Medical Diagnosis: L SDH Treatment Diagnosis: moderate cognitive deficits - Assessment Problem Solving Impairment: Moderate Memory Impairment: Moderate - Plan Assessment: Pt is agreeable to participate in 1:1 and group recreation therapy sessions. Pt participates in word finding and direction following tasks. Pt carries over task rules following orientation to tasks and required min-mod verbal cues for recalling facts on demand dependng on arousal level. Pt will use both hands throughout leisure tasks. Pt will continue to benefit from participating in recreation therapy sessions throughout stay on unit. - Provider Therapist: Keely Zbaala License Number: [id number] Recreational Therapy - Participation Participation: Participates in Individual and/or Group Sessions - Attendance Attendance: 3-5 times per week - Activities Leisure Activities: Cards and Games - Socialization Level of Socialization: Initiates/interacts freely with care givers and peer - Assessment Assessment/Plan: Pt is agreeable to participate in 1:1 and group recreation therapy sessions. Pt participates in word finding and direction following tasks. Pt carries over task rules following orientation to tasks and required min-mod verbal cues for recalling facts on demand dependng on arousal level. Pt will use both hands throughout leisure tasks. Pt will continue to benefit from participating in recreation therapy sessions throughout stay on unit. Problems Currently Limiting Participation: L side UE and LE weakness, decrease direction following, decrease command following, decrease recall, decrease thought organization, decrease attention to task Goals and Time Frame: Pt will be encouraged to participate in 1:1 and group recreation therapy sessions 3-5x week to improve direction following, problem solving, short-term and long-term memory recall, L side weakness, and overall arousal level and mood state. - Provider Therapist: Alta Booth, ENGINEERING MANAGER #[id number] Nutrition - Current Diet Current Diet/ Supplement/ Feedings: 2 gram Na soft 1000 ml fluid restriciton ensuer plus 8 ounces 2 per day - Appetite Percent Meal Consumed: 75-100% - Comments Comments: N/A - Assessment/Goals/Time Frame Assessment/Goals/Time Frame: Pt at high nutritional risk. goals: 1: Consume >75 % of meals- not met, continue. 2: Maintain wt within 2-3 lbs. of current wt- unknown if met, continue. Follow-up due on 05/15/2018 - Provider Provider: Brittney Ford RD Case Management - Psychosocial Assessment Support Systems: Cintia Gong (buddhist friend)- [phone]. Nicole Corbett (neighbor)- [phone] Psychological Interventions/Needs: Patient is alert and oriented with periods of forgetfulness. Discharge Concerns: Patient lives alone with limited support during the day. Patient with impaired safety awareness and insight Patient/Family Meeting: CM met with patient and rehab team Intervention/Goal/Outcome:: 1. Goal: 24 hour supervision/care at home. 2. Plan: [facility]- CM spoke with Cintia Gong via telephone as patient reports inconsistent information. Per [place], patient lives alone in an elevator access senior building. Patient was primarily a household ambulator with a RW and was independent with ADLs. [facility] she was visiting patient 2-3 times a week and assisted patient with cooking and grocery shopping. Patient was also receives lunches through meals on wheels. Patient's neighbors Nicole and Panfilo checked in on patient every so often. [facility] patient does have 5 children, however, has been estranged from them for years. Patient known to [facility] from previous admission and reports having a good experience with therapy and would like to return there after completion of acute rehab. 3. Tentative discharge date: 05/28/2018 pending insurance authorization, LAD: 05/08. 4. continued emotional support. - Discharge Plan Discharge Plan: Subacute care - Provider Provider: GABBI Joe, EDUCATION SALES CONSULTANT License Number: [id number] Rehabilitation Plan - Treatment Plan Treatment Plan: Physical Therapy, Occupational Therapy, Speech, Dietary, Patient /Family Education - Discharge Plan Estimated Date of Discharge: 05/28/18 Discharge to: Home
--- NOTE | 2018-05-15 13:43 | CP.PCM.PN ---
Subjective - Date & Time of Evaluation Date of Evaluation: 05/15/18 Time of Evaluation: 13:41 - Subjective Subjective: patient seen in the room incision CDI doing well motivated lives alone and at this point is not safe to be d/c'd home. trying to avoid a JILLIAN stay and set d/c 05/28/18 with the purpose of getting him home safely he understands the importance of participation each session and what the goal is and how the therapies will hopefully get him home Objective - Vital Signs/Intake and Output Vital Signs (last 24 hours): Temp Pulse Resp BP Pulse Ox 97.9 F 68 20 145/81 98 05/15/18 07:40 05/15/18 08:20 05/15/18 07:40 05/15/18 08:20 05/15/18 07:40 Intake and Output: 05/15/18 05/15/18 06:59 18:59 Intake Total 200 Output Total 800 Balance -600 - Medications Medications: Current Medications Acetaminophen (Tylenol 325mg Tab) 650 mg PO Q6 PRN PRN Reason: Headache Last Admin: 05/14/18 05:32 Dose: 650 mg Albuterol/Ipratropium (Duoneb 3 Mg/0.5 Mg (3 Ml) Ud) 3 ml IH RQ6 PRN PRN Reason: Shortness of Breath Allopurinol (Zyloprim) 300 mg PO DAILY [facility] Last Admin: 05/15/18 08:18 Dose: 300 mg Amlodipine Besylate (Norvasc) 10 mg PO DAILY [facility] Last Admin: 05/15/18 08:18 Dose: 10 mg Atenolol (Tenormin) 25 mg PO Q12 [facility] Last Admin: 05/15/18 08:20 Dose: 25 mg Atorvastatin Calcium (Lipitor) 80 mg PO HS [facility] Last Admin: 05/14/18 21:38 Dose: 80 mg Bisacodyl (Dulcolax) 10 mg [place] DAILY PRN PRN Reason: Constipation Last Admin: 05/07/18 17:10 Dose: 10 mg Docusate Sodium (Colace) 100 mg PO BID [facility] Last Admin: 05/15/18 08:18 Dose: 100 mg Escitalopram Oxalate (Lexapro) 10 mg PO DAILY [facility] Last Admin: 05/15/18 08:20 Dose: 10 mg Famotidine (Pepcid) 40 mg PO HS [facility] Last Admin: 05/14/18 21:38 Dose: 40 mg Gabapentin (Neurontin) 600 mg PO DAILY@1999 [facility] Hydralazine HCl (Apresoline) 25 mg PO Q8 PRN PRN Reason: for systolic bp >160mmhg Last Admin: 05/08/18 08:12 Dose: 25 mg Losartan Potassium (Cozaar) 100 mg PO DAILY [facility] Last Admin: 05/15/18 08:19 Dose: 100 mg Magnesium Hydroxide (Milk Of Magnesia) 30 ml PO DAILY PRN PRN Reason: Constipation Last Admin: 05/05/18 21:49 Dose: 30 ml Tamsulosin HCl (Flomax) 0.4 mg [address] [facility] Last Admin: 05/14/18 21:37 Dose: 0.4 mg Tizanidine HCl (Zanaflex) 4 mg PO HS PRN PRN Reason: Muscle spasm - Labs Labs: 05/05/18 05:30 05/12/18 06:18
--- NOTE | 2018-05-16 18:15 | CP.PCM.PN ---
Subjective - Date & Time of Evaluation Date of Evaluation: 05/16/18 Time of Evaluation: 12:15 - Subjective Subjective: Patient seen in the room stable ambulating 125' with RW and CGA NAD doing well and remains motivated Objective - Vital Signs/Intake and Output Vital Signs (last 24 hours): Temp Pulse Resp BP Pulse Ox 98.1 F 74 22 131/76 96 05/16/18 08:39 05/16/18 08:39 05/16/18 08:39 05/16/18 08:39 05/16/18 08:39 Intake and Output: 05/16/18 05/16/18 06:59 18:59 Intake Total 200 500 Output Total 700 Balance -500 500 - Medications Medications: Current Medications Acetaminophen (Tylenol 325mg Tab) 650 mg PO Q6 PRN PRN Reason: Headache Last Admin: 05/16/18 11:01 Dose: 650 mg Albuterol/Ipratropium (Duoneb 3 Mg/0.5 Mg (3 Ml) Ud) 3 ml IH RQ6 PRN PRN Reason: Shortness of Breath Allopurinol (Zyloprim) 300 mg PO DAILY [facility] Last Admin: 05/16/18 08:25 Dose: 300 mg Amlodipine Besylate (Norvasc) 10 mg PO DAILY [facility] Last Admin: 05/16/18 08:26 Dose: 10 mg Atenolol (Tenormin) 25 mg PO Q12 [facility] Last Admin: 05/16/18 08:25 Dose: 25 mg Atorvastatin Calcium (Lipitor) 80 mg PO HS [facility] Last Admin: 05/15/18 22:07 Dose: 80 mg Bisacodyl (Dulcolax) 10 mg [place] DAILY PRN PRN Reason: Constipation Last Admin: 05/07/18 17:10 Dose: 10 mg Docusate Sodium (Colace) 100 mg PO BID [facility] Last Admin: 05/16/18 17:06 Dose: 100 mg Escitalopram Oxalate (Lexapro) 10 mg PO DAILY [facility] Last Admin: 05/16/18 08:26 Dose: 10 mg Famotidine (Pepcid) 40 mg PO HS [facility] Last Admin: 05/15/18 22:07 Dose: 40 mg Gabapentin (Neurontin) 600 mg PO DAILY@2000 [facility] Hydralazine HCl (Apresoline) 25 mg PO Q8 PRN PRN Reason: for systolic bp >160mmhg Last Admin: 05/08/18 08:12 Dose: 25 mg Losartan Potassium (Cozaar) 100 mg PO DAILY [facility] Last Admin: 05/16/18 08:25 Dose: 100 mg Magnesium Hydroxide (Milk Of Magnesia) 30 ml PO DAILY PRN PRN Reason: Constipation Last Admin: 05/05/18 21:49 Dose: 30 ml Tamsulosin HCl (Flomax) 0.4 mg PO HS [facility] Last Admin: 05/15/18 22:06 Dose: 0.4 mg Tizanidine HCl (Zanaflex) 4 mg PO HS PRN PRN Reason: Muscle spasm Last Admin: 05/15/18 22:08 Dose: 4 mg - Labs Labs: 05/05/18 05:30 05/12/18 06:18
--- NOTE | 2018-05-17 17:56 | CP.PCM.PN ---
<Sylvie Ennis - Last Filed: 05/17/18 17:49> Subjective - Date & Time of Evaluation Date of Evaluation: 05/17/18 Time of Evaluation: 11:00 - Subjective Subjective: Pt seen/examined with Dr. Linder on rounds. Appears in better spirits than past few days; participating in OT with therapist , smiling, laughing. Objective - Vital Signs/Intake and Output Vital Signs (last 24 hours): Temp Pulse Resp BP Pulse Ox 97.2 F L 70 19 139/77 98 05/17/18 09:10 05/17/18 09:10 05/17/18 09:10 05/17/18 09:10 05/17/18 09:10 Intake and Output: 05/17/18 05/17/18 06:59 18:59 Intake Total 100 750 Output Total 450 600 Balance -350 150 - Medications Medications: Current Medications Acetaminophen (Tylenol 325mg Tab) 650 mg PO Q6 PRN PRN Reason: Headache Last Admin: 05/16/18 20:14 Dose: 650 mg Albuterol/Ipratropium (Duoneb 3 Mg/0.5 Mg (3 Ml) Ud) 3 ml IH RQ6 PRN PRN Reason: Shortness of Breath Allopurinol (Zyloprim) 300 mg PO DAILY [facility] Last Admin: 05/17/18 08:18 Dose: 300 mg Amlodipine Besylate (Norvasc) 10 mg PO DAILY [facility] Last Admin: 05/17/18 08:17 Dose: 10 mg Atenolol (Tenormin) 25 mg PO Q12 [facility] Last Admin: 05/17/18 08:15 Dose: 25 mg Atorvastatin Calcium (Lipitor) 80 mg PO HS [facility] Last Admin: 05/16/18 21:19 Dose: 80 mg Bisacodyl (Dulcolax) 10 mg [place] DAILY PRN PRN Reason: Constipation Last Admin: 05/07/18 17:10 Dose: 10 mg Docusate Sodium (Colace) 100 mg PO BID [facility] Last Admin: 05/17/18 17:06 Dose: 100 mg Escitalopram Oxalate (Lexapro) 10 mg PO DAILY [facility] Last Admin: 05/17/18 08:17 Dose: 10 mg Famotidine (Pepcid) 40 mg PO HS [facility] Last Admin: 05/16/18 21:19 Dose: 40 mg Gabapentin (Neurontin) 600 mg PO DAILY@1999 [facility] Last Admin: 05/16/18 20:14 Dose: 600 mg Hydralazine HCl (Apresoline) 25 mg PO Q8 PRN PRN Reason: for systolic bp >160mmhg Last Admin: 05/08/18 08:12 Dose: 25 mg Losartan Potassium (Cozaar) 100 mg PO DAILY [facility] Last Admin: 05/17/18 08:16 Dose: 100 mg Magnesium Hydroxide (Milk Of Magnesia) 30 ml PO DAILY PRN PRN Reason: Constipation Last Admin: 05/05/18 21:49 Dose: 30 ml Tamsulosin HCl (Flomax) 0.4 mg PO HS [facility] Last Admin: 05/16/18 21:19 Dose: 0.4 mg Tizanidine HCl (Zanaflex) 4 mg PO HS PRN PRN Reason: Muscle spasm Last Admin: 05/15/18 22:08 Dose: 4 mg - Labs Labs: 05/05/18 05:30 05/12/18 06:18 - Head Exam Additional comments: craniotomy scar - Respiratory Exam Respiratory Exam: NORMAL BREATHING PATTERN - Cardiovascular Exam Cardiovascular Exam: REGULAR RHYTHM - GI/Abdominal Exam GI & Abdominal Exam: Soft - Extremities Exam Extremities Exam: absent: Calf Tenderness - Neurological Exam Neurological Exam: Alert, Awake Assessment and Plan (1) Hypertension Status: Chronic (2) History of CVA (cerebrovascular accident) Status: Chronic (3) History of subdural hematoma (post traumatic) Status: Acute - Assessment and Plan (Free Text) Plan: - Continue medications/plan as ordered - Continue to encourage PT/OT/therapy <Charles Linder - Last Filed: 05/20/18 20:15> Objective - Vital Signs/Intake and Output Vital Signs (last 24 hours): Temp Pulse Resp BP Pulse Ox 98.9 F 59 L 22 145/75 98 05/20/18 08:14 05/20/18 09:00 05/20/18 08:14 05/20/18 09:00 05/20/18 08:14 - Medications Medications: Current Medications Acetaminophen (Tylenol 325mg Tab) 650 mg PO Q6 PRN PRN Reason: Headache Last Admin: 05/19/18 18:36 Dose: 650 mg Albuterol/Ipratropium (Duoneb 3 Mg/0.5 Mg (3 Ml) Ud) 3 ml IH RQ6 PRN PRN Reason: Shortness of Breath Allopurinol (Zyloprim) 300 mg PO DAILY [facility] Last Admin: 05/20/18 09:00 Dose: 300 mg Amlodipine Besylate (Norvasc) 10 mg PO DAILY [facility] Last Admin: 05/20/18 08:59 Dose: 10 mg Atorvastatin Calcium (Lipitor) 80 mg PO HS [facility] Last Admin: 05/19/18 21:17 Dose: 80 mg Bisacodyl (Dulcolax) 10 mg [place] DAILY PRN PRN Reason: Constipation Last Admin: 05/07/18 17:10 Dose: 10 mg Docusate Sodium (Colace) 100 mg PO BID [facility] Last Admin: 05/20/18 17:25 Dose: 100 mg Escitalopram Oxalate (Lexapro) 10 mg PO DAILY [facility] Last Admin: 05/20/18 08:59 Dose: 10 mg Famotidine (Pepcid) 40 mg PO HS [facility] Last Admin: 05/19/18 21:16 Dose: 40 mg Gabapentin (Neurontin) 600 mg PO DAILY@1999 [facility] Last Admin: 05/19/18 20:08 Dose: 600 mg Hydralazine HCl (Apresoline) 25 mg PO Q8 PRN PRN Reason: for systolic bp >160mmhg Last Admin: 05/08/18 08:12 Dose: 25 mg Losartan Potassium (Cozaar) 100 mg PO DAILY [facility] Last Admin: 05/20/18 08:59 Dose: 100 mg Magnesium Hydroxide (Milk Of Magnesia) 30 ml PO DAILY PRN PRN Reason: Constipation Last Admin: 05/05/18 21:49 Dose: 30 ml Metoprolol Tartrate (Lopressor) 50 mg PO Q12 [facility] Tizanidine HCl (Zanaflex) 4 mg PO HS PRN PRN Reason: Muscle spasm Last Admin: 05/19/18 21:17 Dose: 4 mg - Labs Labs: 05/05/18 05:30 05/12/18 06:18 Assessment and Plan (1) Neurologic gait dysfunction Status: Acute (2) Status post CVA Status: Acute (3) History of subdural hematoma (post traumatic) Status: Acute (4) Hypertension Status: Chronic - Assessment and Plan (Free Text) Plan: I was present during evaluation and discussed with Dr Mars vincent plans of care and mgt
--- NOTE | 2018-05-18 12:14 | CP.PCM.PN ---
Subjective - Date & Time of Evaluation Date of Evaluation: 05/18/18 Time of Evaluation: 12:13 - Subjective Subjective: Patient seen in the room doing well denies sob/cp good appetite scalp incision CDI no erythema continue current care Objective - Vital Signs/Intake and Output Vital Signs (last 24 hours): Temp Pulse Resp BP Pulse Ox 98.2 F 57 L 20 133/66 98 05/18/18 07:23 05/18/18 08:11 05/18/18 07:23 05/18/18 08:11 05/18/18 07:23 Intake and Output: 05/18/18 05/18/18 06:59 18:59 Intake Total 150 Output Total 500 Balance -350 - Medications Medications: Current Medications Acetaminophen (Tylenol 325mg Tab) 650 mg PO Q6 PRN PRN Reason: Headache Last Admin: 05/16/18 20:14 Dose: 650 mg Albuterol/Ipratropium (Duoneb 3 Mg/0.5 Mg (3 Ml) Ud) 3 ml IH RQ6 PRN PRN Reason: Shortness of Breath Allopurinol (Zyloprim) 300 mg PO DAILY [facility] Last Admin: 05/18/18 08:12 Dose: 300 mg Amlodipine Besylate (Norvasc) 10 mg PO DAILY [facility] Last Admin: 05/18/18 08:10 Dose: 10 mg Atenolol (Tenormin) 25 mg PO Q12 [facility] Last Admin: 05/18/18 08:11 Dose: 25 mg Atorvastatin Calcium (Lipitor) 80 mg PO HS [facility] Last Admin: 05/17/18 21:01 Dose: 80 mg Bisacodyl (Dulcolax) 10 mg [place] DAILY PRN PRN Reason: Constipation Last Admin: 05/07/18 17:10 Dose: 10 mg Docusate Sodium (Colace) 100 mg PO BID [facility] Last Admin: 05/18/18 08:09 Dose: 100 mg Escitalopram Oxalate (Lexapro) 10 mg PO DAILY [facility] Last Admin: 05/18/18 08:12 Dose: 10 mg Famotidine (Pepcid) 40 mg PO HS [facility] Last Admin: 05/17/18 21:01 Dose: 40 mg Gabapentin (Neurontin) 600 mg PO DAILY@2000 [facility] Last Admin: 05/17/18 20:07 Dose: 600 mg Hydralazine HCl (Apresoline) 25 mg PO Q8 PRN PRN Reason: for systolic bp >160mmhg Last Admin: 05/08/18 08:12 Dose: 25 mg Losartan Potassium (Cozaar) 100 mg PO DAILY [facility] Last Admin: 05/18/18 08:09 Dose: 100 mg Magnesium Hydroxide (Milk Of Magnesia) 30 ml PO DAILY PRN PRN Reason: Constipation Last Admin: 05/05/18 21:49 Dose: 30 ml Tamsulosin HCl (Flomax) 0.4 mg PO HS [facility] Last Admin: 05/17/18 21:00 Dose: 0.4 mg Tizanidine HCl (Zanaflex) 4 mg PO HS PRN PRN Reason: Muscle spasm Last Admin: 05/17/18 21:01 Dose: 4 mg - Labs Labs: 05/05/18 05:30 05/12/18 06:18
--- NOTE | 2018-05-19 08:06 | CP.PCM.PN ---
Subjective - Date & Time of Evaluation Date of Evaluation: 05/10/18 Time of Evaluation: 10:00 - Subjective Subjective: patient feels a lot better Still on fluid restriction for hyponatremia Has been doing a lot better with therapy has no chest pain or SOB. Objective - Vital Signs/Intake and Output Vital Signs (last 24 hours): Temp Pulse Resp BP Pulse Ox 97.9 F 66 20 148/86 96 05/18/18 20:08 05/18/18 21:13 05/18/18 20:08 05/18/18 21:13 05/18/18 20:08 Intake and Output: 05/19/18 05/19/18 06:59 18:59 Intake Total 150 Output Total 400 Balance -250 - Medications Medications: Current Medications Acetaminophen (Tylenol 325mg Tab) 650 mg PO Q6 PRN PRN Reason: Headache Last Admin: 05/18/18 17:28 Dose: 650 mg Albuterol/Ipratropium (Duoneb 3 Mg/0.5 Mg (3 Ml) Ud) 3 ml IH RQ6 PRN PRN Reason: Shortness of Breath Allopurinol (Zyloprim) 300 mg PO DAILY [facility] Last Admin: 05/18/18 08:12 Dose: 300 mg Amlodipine Besylate (Norvasc) 10 mg PO DAILY [facility] Last Admin: 05/18/18 08:10 Dose: 10 mg Atenolol (Tenormin) 25 mg PO Q12 [facility] Last Admin: 05/18/18 21:13 Dose: 25 mg Atorvastatin Calcium (Lipitor) 80 mg PO HS [facility] Last Admin: 05/18/18 21:12 Dose: 80 mg Bisacodyl (Dulcolax) 10 mg [place] DAILY PRN PRN Reason: Constipation Last Admin: 05/07/18 17:10 Dose: 10 mg Docusate Sodium (Colace) 100 mg PO BID [facility] Last Admin: 05/18/18 17:17 Dose: 100 mg Escitalopram Oxalate (Lexapro) 10 mg PO DAILY [facility] Last Admin: 05/18/18 08:12 Dose: 10 mg Famotidine (Pepcid) 40 mg PO HS [facility] Last Admin: 05/18/18 21:12 Dose: 40 mg Gabapentin (Neurontin) 600 mg PO DAILY@2000 [facility] Last Admin: 05/18/18 21:12 Dose: 600 mg Hydralazine HCl (Apresoline) 25 mg PO Q8 PRN PRN Reason: for systolic bp >160mmhg Last Admin: 05/08/18 08:12 Dose: 25 mg Losartan Potassium (Cozaar) 100 mg PO DAILY [facility] Last Admin: 05/18/18 08:09 Dose: 100 mg Magnesium Hydroxide (Milk Of Magnesia) 30 ml PO DAILY PRN PRN Reason: Constipation Last Admin: 05/05/18 21:49 Dose: 30 ml Tamsulosin HCl (Flomax) 0.4 mg PO HS [facility] Last Admin: 05/18/18 21:12 Dose: 0.4 mg Tizanidine HCl (Zanaflex) 4 mg PO HS PRN PRN Reason: Muscle spasm Last Admin: 05/18/18 21:14 Dose: 4 mg - Labs Labs: 05/05/18 05:30 05/12/18 06:18 - Head Exam Head Exam: NORMAL INSPECTION - Eye Exam Eye Exam: Normal appearance - ENT Exam ENT Exam: Mucous Membranes Moist - Respiratory Exam Respiratory Exam: Clear to Ausculation Bilateral - Cardiovascular Exam Cardiovascular Exam: REGULAR RHYTHM - GI/Abdominal Exam GI & Abdominal Exam: Soft, Normal Bowel Sounds - Neurological Exam Neurological Exam: CN II-XII Intact, Oriented x3 - Psychiatric Exam Psychiatric exam: Normal Mood - Skin Skin Exam: Normal Color Assessment and Plan (1) Neurologic gait dysfunction Status: Acute (2) Status post CVA Status: Acute (3) History of subdural hematoma (post traumatic) Status: Acute (4) Hypertension Status: Chronic - Assessment and Plan (Free Text) Plan: Cont PT Con tmeds cont fluid restriction
--- NOTE | 2018-05-19 08:06 | CP.PCM.PN ---
Subjective - Date & Time of Evaluation Date of Evaluation: 05/19/18 Time of Evaluation: 08:06 - Subjective Subjective: Patient remains well No recent labs Doing well with PT Objective - Vital Signs/Intake and Output Vital Signs (last 24 hours): Temp Pulse Resp BP Pulse Ox 97.9 F 66 20 148/86 96 05/18/18 20:08 05/18/18 21:13 05/18/18 20:08 05/18/18 21:13 05/18/18 20:08 Intake and Output: 05/19/18 05/19/18 06:59 18:59 Intake Total 150 Output Total 400 Balance -250 - Medications Medications: Current Medications Acetaminophen (Tylenol 325mg Tab) 650 mg PO Q6 PRN PRN Reason: Headache Last Admin: 05/18/18 17:28 Dose: 650 mg Albuterol/Ipratropium (Duoneb 3 Mg/0.5 Mg (3 Ml) Ud) 3 ml IH RQ6 PRN PRN Reason: Shortness of Breath Allopurinol (Zyloprim) 300 mg PO DAILY [facility] Last Admin: 05/18/18 08:12 Dose: 300 mg Amlodipine Besylate (Norvasc) 10 mg PO DAILY [facility] Last Admin: 05/18/18 08:10 Dose: 10 mg Atenolol (Tenormin) 25 mg PO Q12 [facility] Last Admin: 05/18/18 21:13 Dose: 25 mg Atorvastatin Calcium (Lipitor) 80 mg PO HS [facility] Last Admin: 05/18/18 21:12 Dose: 80 mg Bisacodyl (Dulcolax) 10 mg [place] DAILY PRN PRN Reason: Constipation Last Admin: 05/07/18 17:10 Dose: 10 mg Docusate Sodium (Colace) 100 mg PO BID [facility] Last Admin: 05/18/18 17:17 Dose: 100 mg Escitalopram Oxalate (Lexapro) 10 mg PO DAILY [facility] Last Admin: 05/18/18 08:12 Dose: 10 mg Famotidine (Pepcid) 40 mg PO HS [facility] Last Admin: 05/18/18 21:12 Dose: 40 mg Gabapentin (Neurontin) 600 mg PO DAILY@2000 [facility] Last Admin: 05/18/18 21:12 Dose: 600 mg Hydralazine HCl (Apresoline) 25 mg PO Q8 PRN PRN Reason: for systolic bp >160mmhg Last Admin: 05/08/18 08:12 Dose: 25 mg Losartan Potassium (Cozaar) 100 mg PO DAILY [facility] Last Admin: 05/18/18 08:09 Dose: 100 mg Magnesium Hydroxide (Milk Of Magnesia) 30 ml PO DAILY PRN PRN Reason: Constipation Last Admin: 05/05/18 21:49 Dose: 30 ml Tamsulosin HCl (Flomax) 0.4 mg PO HS [facility] Last Admin: 05/18/18 21:12 Dose: 0.4 mg Tizanidine HCl (Zanaflex) 4 mg PO HS PRN PRN Reason: Muscle spasm Last Admin: 05/18/18 21:14 Dose: 4 mg - Labs Labs: 05/05/18 05:30 05/12/18 06:18 - Head Exam Head Exam: NORMAL INSPECTION - Eye Exam Eye Exam: Normal appearance - ENT Exam ENT Exam: Mucous Membranes Moist - Respiratory Exam Respiratory Exam: Clear to Ausculation Bilateral - Cardiovascular Exam Cardiovascular Exam: REGULAR RHYTHM - GI/Abdominal Exam GI & Abdominal Exam: Normal Bowel Sounds - Neurological Exam Neurological Exam: Awake, Oriented x3 Assessment and Plan (1) Neurologic gait dysfunction Status: Acute (2) Status post CVA Status: Acute (3) History of subdural hematoma (post traumatic) Status: Acute (4) Hypertension Status: Chronic - Assessment and Plan (Free Text) Plan: Cpn tmeds Cont tx Cont PT
--- NOTE | 2018-05-20 20:10 | CP.PCM.PN ---
Subjective - Date & Time of Evaluation Date of Evaluation: 05/11/18 Time of Evaluation: 10:30 - Subjective Subjective: patient is doing a lot better sodium is still low at 129 Has no chest pain or SOB Still with insomnia Objective - Vital Signs/Intake and Output Vital Signs (last 24 hours): Temp Pulse Resp BP Pulse Ox 98.9 F 59 L 22 145/75 98 05/20/18 08:14 05/20/18 09:00 05/20/18 08:14 05/20/18 09:00 05/20/18 08:14 - Medications Medications: Current Medications Acetaminophen (Tylenol 325mg Tab) 650 mg PO Q6 PRN PRN Reason: Headache Last Admin: 05/19/18 18:36 Dose: 650 mg Albuterol/Ipratropium (Duoneb 3 Mg/0.5 Mg (3 Ml) Ud) 3 ml IH RQ6 PRN PRN Reason: Shortness of Breath Allopurinol (Zyloprim) 300 mg PO DAILY [facility] Last Admin: 05/20/18 09:00 Dose: 300 mg Amlodipine Besylate (Norvasc) 10 mg PO DAILY [facility] Last Admin: 05/20/18 08:59 Dose: 10 mg Atorvastatin Calcium (Lipitor) 80 mg PO HS [facility] Last Admin: 05/19/18 21:17 Dose: 80 mg Bisacodyl (Dulcolax) 10 mg [place] DAILY PRN PRN Reason: Constipation Last Admin: 05/07/18 17:10 Dose: 10 mg Docusate Sodium (Colace) 100 mg PO BID [facility] Last Admin: 05/20/18 17:25 Dose: 100 mg Escitalopram Oxalate (Lexapro) 10 mg PO DAILY [facility] Last Admin: 05/20/18 08:59 Dose: 10 mg Famotidine (Pepcid) 40 mg PO HS [facility] Last Admin: 05/19/18 21:16 Dose: 40 mg Gabapentin (Neurontin) 600 mg PO DAILY@1999 [facility] Last Admin: 05/19/18 20:08 Dose: 600 mg Hydralazine HCl (Apresoline) 25 mg PO Q8 PRN PRN Reason: for systolic bp >160mmhg Last Admin: 05/08/18 08:12 Dose: 25 mg Losartan Potassium (Cozaar) 100 mg PO DAILY [facility] Last Admin: 05/20/18 08:59 Dose: 100 mg Magnesium Hydroxide (Milk Of Magnesia) 30 ml PO DAILY PRN PRN Reason: Constipation Last Admin: 05/05/18 21:49 Dose: 30 ml Metoprolol Tartrate (Lopressor) 50 mg PO Q12 [facility] Tizanidine HCl (Zanaflex) 4 mg PO HS PRN PRN Reason: Muscle spasm Last Admin: 05/19/18 21:17 Dose: 4 mg - Labs Labs: 05/05/18 05:30 05/12/18 06:18 - Head Exam Head Exam: NORMAL INSPECTION - Eye Exam Eye Exam: Normal appearance - ENT Exam ENT Exam: Mucous Membranes Moist - Respiratory Exam Respiratory Exam: Clear to Ausculation Bilateral - Cardiovascular Exam Cardiovascular Exam: REGULAR RHYTHM - GI/Abdominal Exam GI & Abdominal Exam: Normal Bowel Sounds - Neurological Exam Neurological Exam: Awake, Oriented x3 - Psychiatric Exam Psychiatric exam: Normal Mood Assessment and Plan (1) Neurologic gait dysfunction Status: Acute (2) Status post CVA Status: Acute (3) History of subdural hematoma (post traumatic) Status: Acute (4) Hypertension Status: Chronic - Assessment and Plan (Free Text) Plan: Cont meds Cont tx Cont PT Cont fluid restriction
--- NOTE | 2018-05-20 20:12 | CP.PCM.PN ---
Subjective - Date & Time of Evaluation Date of Evaluation: 05/12/18 Time of Evaluation: 09:30 - Subjective Subjective: Patient remains well Has no chest pain or SOB Afebrile. Objective - Vital Signs/Intake and Output Vital Signs (last 24 hours): Temp Pulse Resp BP Pulse Ox 98.9 F 59 L 22 145/75 98 05/20/18 08:14 05/20/18 09:00 05/20/18 08:14 05/20/18 09:00 05/20/18 08:14 - Medications Medications: Current Medications Acetaminophen (Tylenol 325mg Tab) 650 mg PO Q6 PRN PRN Reason: Headache Last Admin: 05/19/18 18:36 Dose: 650 mg Albuterol/Ipratropium (Duoneb 3 Mg/0.5 Mg (3 Ml) Ud) 3 ml IH RQ6 PRN PRN Reason: Shortness of Breath Allopurinol (Zyloprim) 300 mg PO DAILY [facility] Last Admin: 05/20/18 09:00 Dose: 300 mg Amlodipine Besylate (Norvasc) 10 mg PO DAILY [facility] Last Admin: 05/20/18 08:59 Dose: 10 mg Atorvastatin Calcium (Lipitor) 80 mg PO HS [facility] Last Admin: 05/19/18 21:17 Dose: 80 mg Bisacodyl (Dulcolax) 10 mg [place] DAILY PRN PRN Reason: Constipation Last Admin: 05/07/18 17:10 Dose: 10 mg Docusate Sodium (Colace) 100 mg PO BID [facility] Last Admin: 05/20/18 17:25 Dose: 100 mg Escitalopram Oxalate (Lexapro) 10 mg PO DAILY [facility] Last Admin: 05/20/18 08:59 Dose: 10 mg Famotidine (Pepcid) 40 mg PO HS [facility] Last Admin: 05/19/18 21:16 Dose: 40 mg Gabapentin (Neurontin) 600 mg PO DAILY@1999 [facility] Last Admin: 05/19/18 20:08 Dose: 600 mg Hydralazine HCl (Apresoline) 25 mg PO Q8 PRN PRN Reason: for systolic bp >160mmhg Last Admin: 05/08/18 08:12 Dose: 25 mg Losartan Potassium (Cozaar) 100 mg PO DAILY [facility] Last Admin: 05/20/18 08:59 Dose: 100 mg Magnesium Hydroxide (Milk Of Magnesia) 30 ml PO DAILY PRN PRN Reason: Constipation Last Admin: 05/05/18 21:49 Dose: 30 ml Metoprolol Tartrate (Lopressor) 50 mg PO Q12 [facility] Tizanidine HCl (Zanaflex) 4 mg PO HS PRN PRN Reason: Muscle spasm Last Admin: 05/19/18 21:17 Dose: 4 mg - Labs Labs: 05/05/18 05:30 05/12/18 06:18 - Head Exam Head Exam: NORMAL INSPECTION - Eye Exam Eye Exam: Normal appearance - ENT Exam ENT Exam: Mucous Membranes Moist - Respiratory Exam Respiratory Exam: Clear to Ausculation Bilateral - GI/Abdominal Exam GI & Abdominal Exam: Normal Bowel Sounds - Neurological Exam Neurological Exam: Awake, Oriented x3 Assessment and Plan (1) Neurologic gait dysfunction Status: Acute (2) Status post CVA Status: Acute (3) History of subdural hematoma (post traumatic) Status: Acute (4) Hypertension Status: Chronic - Assessment and Plan (Free Text) Plan: Con tmeds Cont tx Cont PT fluid restriction
--- NOTE | 2018-05-20 20:14 | CP.PCM.PN ---
Subjective - Date & Time of Evaluation Date of Evaluation: 05/13/18 Time of Evaluation: 09:30 - Subjective Subjective: patient has improved a lot with therapy Noted to be more conversant Has no headaches Has better sleep Still on fluid restriction Objective - Vital Signs/Intake and Output Vital Signs (last 24 hours): Temp Pulse Resp BP Pulse Ox 98.9 F 59 L 22 145/75 98 05/20/18 08:14 05/20/18 09:00 05/20/18 08:14 05/20/18 09:00 05/20/18 08:14 - Medications Medications: Current Medications Acetaminophen (Tylenol 325mg Tab) 650 mg PO Q6 PRN PRN Reason: Headache Last Admin: 05/19/18 18:36 Dose: 650 mg Albuterol/Ipratropium (Duoneb 3 Mg/0.5 Mg (3 Ml) Ud) 3 ml IH RQ6 PRN PRN Reason: Shortness of Breath Allopurinol (Zyloprim) 300 mg PO DAILY [facility] Last Admin: 05/20/18 09:00 Dose: 300 mg Amlodipine Besylate (Norvasc) 10 mg PO DAILY [facility] Last Admin: 05/20/18 08:59 Dose: 10 mg Atorvastatin Calcium (Lipitor) 80 mg PO HS [facility] Last Admin: 05/19/18 21:17 Dose: 80 mg Bisacodyl (Dulcolax) 10 mg [place] DAILY PRN PRN Reason: Constipation Last Admin: 05/07/18 17:10 Dose: 10 mg Docusate Sodium (Colace) 100 mg PO BID [facility] Last Admin: 05/20/18 17:25 Dose: 100 mg Escitalopram Oxalate (Lexapro) 10 mg PO DAILY [facility] Last Admin: 05/20/18 08:59 Dose: 10 mg Famotidine (Pepcid) 40 mg PO HS [facility] Last Admin: 05/19/18 21:16 Dose: 40 mg Gabapentin (Neurontin) 600 mg PO DAILY@1999 [facility] Last Admin: 05/19/18 20:08 Dose: 600 mg Hydralazine HCl (Apresoline) 25 mg PO Q8 PRN PRN Reason: for systolic bp >160mmhg Last Admin: 05/08/18 08:12 Dose: 25 mg Losartan Potassium (Cozaar) 100 mg PO DAILY [facility] Last Admin: 05/20/18 08:59 Dose: 100 mg Magnesium Hydroxide (Milk Of Magnesia) 30 ml PO DAILY PRN PRN Reason: Constipation Last Admin: 05/05/18 21:49 Dose: 30 ml Metoprolol Tartrate (Lopressor) 50 mg PO Q12 [facility] Tizanidine HCl (Zanaflex) 4 mg PO HS PRN PRN Reason: Muscle spasm Last Admin: 05/19/18 21:17 Dose: 4 mg - Labs Labs: 05/05/18 05:30 05/12/18 06:18 - Head Exam Head Exam: NORMAL INSPECTION - Eye Exam Eye Exam: Normal appearance - ENT Exam ENT Exam: Mucous Membranes Moist - Respiratory Exam Respiratory Exam: Clear to Ausculation Bilateral - Cardiovascular Exam Cardiovascular Exam: REGULAR RHYTHM - GI/Abdominal Exam GI & Abdominal Exam: Normal Bowel Sounds - Neurological Exam Neurological Exam: CN II-XII Intact, Oriented x3 Assessment and Plan (1) Neurologic gait dysfunction Status: Acute (2) Status post CVA Status: Acute (3) History of subdural hematoma (post traumatic) Status: Acute (4) Hypertension Status: Chronic - Assessment and Plan (Free Text) Plan: Con tmeds Cont tx Con tPT
--- NOTE | 2018-05-20 20:17 | CP.PCM.PN ---
Subjective - Date & Time of Evaluation Date of Evaluation: 05/14/18 Time of Evaluation: 10:30 - Subjective Subjective: Patient remains well Has no chest pain or SOB Afebrile Objective - Vital Signs/Intake and Output Vital Signs (last 24 hours): Temp Pulse Resp BP Pulse Ox 98.9 F 59 L 22 145/75 98 05/20/18 08:14 05/20/18 09:00 05/20/18 08:14 05/20/18 09:00 05/20/18 08:14 - Medications Medications: Current Medications Acetaminophen (Tylenol 325mg Tab) 650 mg PO Q6 PRN PRN Reason: Headache Last Admin: 05/19/18 18:36 Dose: 650 mg Albuterol/Ipratropium (Duoneb 3 Mg/0.5 Mg (3 Ml) Ud) 3 ml IH RQ6 PRN PRN Reason: Shortness of Breath Allopurinol (Zyloprim) 300 mg PO DAILY [facility] Last Admin: 05/20/18 09:00 Dose: 300 mg Amlodipine Besylate (Norvasc) 10 mg PO DAILY [facility] Last Admin: 05/20/18 08:59 Dose: 10 mg Atorvastatin Calcium (Lipitor) 80 mg PO HS [facility] Last Admin: 05/19/18 21:17 Dose: 80 mg Bisacodyl (Dulcolax) 10 mg [place] DAILY PRN PRN Reason: Constipation Last Admin: 05/07/18 17:10 Dose: 10 mg Docusate Sodium (Colace) 100 mg PO BID [facility] Last Admin: 05/20/18 17:25 Dose: 100 mg Escitalopram Oxalate (Lexapro) 10 mg PO DAILY [facility] Last Admin: 05/20/18 08:59 Dose: 10 mg Famotidine (Pepcid) 40 mg PO HS [facility] Last Admin: 05/19/18 21:16 Dose: 40 mg Gabapentin (Neurontin) 600 mg PO DAILY@1999 [facility] Last Admin: 05/19/18 20:08 Dose: 600 mg Hydralazine HCl (Apresoline) 25 mg PO Q8 PRN PRN Reason: for systolic bp >160mmhg Last Admin: 05/08/18 08:12 Dose: 25 mg Losartan Potassium (Cozaar) 100 mg PO DAILY [facility] Last Admin: 05/20/18 08:59 Dose: 100 mg Magnesium Hydroxide (Milk Of Magnesia) 30 ml PO DAILY PRN PRN Reason: Constipation Last Admin: 05/05/18 21:49 Dose: 30 ml Metoprolol Tartrate (Lopressor) 50 mg PO Q12 [facility] Tizanidine HCl (Zanaflex) 4 mg PO HS PRN PRN Reason: Muscle spasm Last Admin: 05/19/18 21:17 Dose: 4 mg - Labs Labs: 05/05/18 05:30 05/12/18 06:18 - Head Exam Head Exam: NORMAL INSPECTION - Eye Exam Eye Exam: Normal appearance - ENT Exam ENT Exam: Mucous Membranes Moist - Respiratory Exam Respiratory Exam: Clear to Ausculation Bilateral - Cardiovascular Exam Cardiovascular Exam: REGULAR RHYTHM - GI/Abdominal Exam GI & Abdominal Exam: Normal Bowel Sounds - Neurological Exam Neurological Exam: Awake, Oriented x3 - Psychiatric Exam Psychiatric exam: Normal Mood Assessment and Plan (1) Neurologic gait dysfunction Status: Acute (2) Status post CVA Status: Acute (3) History of subdural hematoma (post traumatic) Status: Acute (4) Hypertension Status: Chronic - Assessment and Plan (Free Text) Plan: Con tmeds Cont tx Cont PT cont fluid restriction
--- NOTE | 2018-05-20 20:18 | CP.PCM.PN ---
Subjective - Date & Time of Evaluation Date of Evaluation: 05/15/18 Time of Evaluation: 10:00 - Subjective Subjective: Patient remains stable Doing well with PT Objective - Vital Signs/Intake and Output Vital Signs (last 24 hours): Temp Pulse Resp BP Pulse Ox 97.9 F 72 20 116/74 97 05/20/18 20:00 05/20/18 20:00 05/20/18 20:00 05/20/18 20:00 05/20/18 20:00 - Medications Medications: Current Medications Acetaminophen (Tylenol 325mg Tab) 650 mg PO Q6 PRN PRN Reason: Headache Last Admin: 05/19/18 18:36 Dose: 650 mg Albuterol/Ipratropium (Duoneb 3 Mg/0.5 Mg (3 Ml) Ud) 3 ml IH RQ6 PRN PRN Reason: Shortness of Breath Allopurinol (Zyloprim) 300 mg PO DAILY [facility] Last Admin: 05/20/18 09:00 Dose: 300 mg Amlodipine Besylate (Norvasc) 10 mg PO DAILY [facility] Last Admin: 05/20/18 08:59 Dose: 10 mg Atorvastatin Calcium (Lipitor) 80 mg PO [facility] Last Admin: 05/19/18 21:17 Dose: 80 mg Bisacodyl (Dulcolax) 10 mg [place] DAILY PRN PRN Reason: Constipation Last Admin: 05/07/18 17:10 Dose: 10 mg Docusate Sodium (Colace) 100 mg PO BID [facility] Last Admin: 05/20/18 17:25 Dose: 100 mg Escitalopram Oxalate (Lexapro) 10 mg PO DAILY [facility] Last Admin: 05/20/18 08:59 Dose: 10 mg Famotidine (Pepcid) 40 mg PO HS [facility] Last Admin: 05/19/18 21:16 Dose: 40 mg Gabapentin (Neurontin) 600 mg PO DAILY@1999 [facility] Last Admin: 05/19/18 20:08 Dose: 600 mg Hydralazine HCl (Apresoline) 25 mg PO Q8 PRN PRN Reason: for systolic bp >160mmhg Last Admin: 05/08/18 08:12 Dose: 25 mg Losartan Potassium (Cozaar) 100 mg PO DAILY [facility] Last Admin: 05/20/18 08:59 Dose: 100 mg Magnesium Hydroxide (Milk Of Magnesia) 30 ml PO DAILY PRN PRN Reason: Constipation Last Admin: 05/05/18 21:49 Dose: 30 ml Metoprolol Tartrate (Lopressor) 50 mg PO Q12 [facility] Tizanidine HCl (Zanaflex) 4 mg PO HS PRN PRN Reason: Muscle spasm Last Admin: 05/19/18 21:17 Dose: 4 mg - Labs Labs: 05/05/18 05:30 05/12/18 06:18 - Head Exam Head Exam: NORMAL INSPECTION - Eye Exam Eye Exam: Normal appearance - Respiratory Exam Respiratory Exam: Clear to Ausculation Bilateral - Cardiovascular Exam Cardiovascular Exam: REGULAR RHYTHM - GI/Abdominal Exam GI & Abdominal Exam: Normal Bowel Sounds - Neurological Exam Neurological Exam: Awake, Oriented x3 - Psychiatric Exam Psychiatric exam: Normal Mood Assessment and Plan (1) Neurologic gait dysfunction Status: Acute (2) Status post CVA Status: Acute (3) History of subdural hematoma (post traumatic) Status: Acute (4) Hypertension Status: Chronic - Assessment and Plan (Free Text) Plan: Con tmeds Con ttx Cont PT
--- NOTE | 2018-05-20 20:20 | CP.PCM.PN ---
Subjective - Date & Time of Evaluation Date of Evaluation: 05/16/18 Time of Evaluation: 11:00 - Subjective Subjective: patient remains well Has no chest pain or SOB Doing well with PT. Objective - Vital Signs/Intake and Output Vital Signs (last 24 hours): Temp Pulse Resp BP Pulse Ox 97.9 F 72 20 116/74 97 05/20/18 20:00 05/20/18 20:00 05/20/18 20:00 05/20/18 20:00 05/20/18 20:00 - Medications Medications: Current Medications Acetaminophen (Tylenol 325mg Tab) 650 mg PO Q6 PRN PRN Reason: Headache Last Admin: 05/19/18 18:36 Dose: 650 mg Albuterol/Ipratropium (Duoneb 3 Mg/0.5 Mg (3 Ml) Ud) 3 ml IH RQ6 PRN PRN Reason: Shortness of Breath Allopurinol (Zyloprim) 300 mg PO DAILY [facility] Last Admin: 05/20/18 09:00 Dose: 300 mg Amlodipine Besylate (Norvasc) 10 mg PO DAILY [facility] Last Admin: 05/20/18 08:59 Dose: 10 mg Atorvastatin Calcium (Lipitor) 80 mg PO HS [facility] Last Admin: 05/19/18 21:17 Dose: 80 mg Bisacodyl (Dulcolax) 10 mg [place] DAILY PRN PRN Reason: Constipation Last Admin: 05/07/18 17:10 Dose: 10 mg Docusate Sodium (Colace) 100 mg PO BID [facility] Last Admin: 05/20/18 17:25 Dose: 100 mg Escitalopram Oxalate (Lexapro) 10 mg PO DAILY [facility] Last Admin: 05/20/18 08:59 Dose: 10 mg Famotidine (Pepcid) 40 mg PO HS [facility] Last Admin: 05/19/18 21:16 Dose: 40 mg Gabapentin (Neurontin) 600 mg PO DAILY@1999 [facility] Last Admin: 05/19/18 20:08 Dose: 600 mg Hydralazine HCl (Apresoline) 25 mg PO Q8 PRN PRN Reason: for systolic bp >160mmhg Last Admin: 05/08/18 08:12 Dose: 25 mg Losartan Potassium (Cozaar) 100 mg PO DAILY [facility] Last Admin: 05/20/18 08:59 Dose: 100 mg Magnesium Hydroxide (Milk Of Magnesia) 30 ml PO DAILY PRN PRN Reason: Constipation Last Admin: 05/05/18 21:49 Dose: 30 ml Metoprolol Tartrate (Lopressor) 50 mg PO Q12 [facility] Tizanidine HCl (Zanaflex) 4 mg PO HS PRN PRN Reason: Muscle spasm Last Admin: 05/19/18 21:17 Dose: 4 mg - Labs Labs: 05/05/18 05:30 05/12/18 06:18 - Head Exam Head Exam: NORMAL INSPECTION - Eye Exam Eye Exam: Normal appearance - ENT Exam ENT Exam: Mucous Membranes Moist - Respiratory Exam Respiratory Exam: Clear to Ausculation Bilateral - Cardiovascular Exam Cardiovascular Exam: REGULAR RHYTHM - GI/Abdominal Exam GI & Abdominal Exam: Normal Bowel Sounds - Neurological Exam Neurological Exam: Awake, Oriented x3 Assessment and Plan (1) Neurologic gait dysfunction Status: Acute (2) Status post CVA Status: Acute (3) History of subdural hematoma (post traumatic) Status: Acute (4) Hypertension Status: Chronic - Assessment and Plan (Free Text) Plan: Cont meds Cont tx Cont PT cont fluid restriction
--- NOTE | 2018-05-20 20:22 | CP.PCM.PN ---
Subjective - Date & Time of Evaluation Date of Evaluation: 05/18/18 Time of Evaluation: 10:15 - Subjective Subjective: patient remains well Has more positive disposition Noted to be a lot more conversant and participating well with PT Has no chest pain. Objective - Vital Signs/Intake and Output Vital Signs (last 24 hours): Temp Pulse Resp BP Pulse Ox 97.9 F 72 20 116/74 97 05/20/18 20:00 05/20/18 20:00 05/20/18 20:00 05/20/18 20:00 05/20/18 20:00 - Medications Medications: Current Medications Acetaminophen (Tylenol 325mg Tab) 650 mg PO Q6 PRN PRN Reason: Headache Last Admin: 05/19/18 18:36 Dose: 650 mg Albuterol/Ipratropium (Duoneb 3 Mg/0.5 Mg (3 Ml) Ud) 3 ml IH RQ6 PRN PRN Reason: Shortness of Breath Allopurinol (Zyloprim) 300 mg PO DAILY [facility] Last Admin: 05/20/18 09:00 Dose: 300 mg Amlodipine Besylate (Norvasc) 10 mg PO DAILY [facility] Last Admin: 05/20/18 08:59 Dose: 10 mg Atorvastatin Calcium (Lipitor) 80 mg PO HS [facility] Last Admin: 05/19/18 21:17 Dose: 80 mg Bisacodyl (Dulcolax) 10 mg [place] DAILY PRN PRN Reason: Constipation Last Admin: 05/07/18 17:10 Dose: 10 mg Docusate Sodium (Colace) 100 mg PO BID [facility] Last Admin: 05/20/18 17:25 Dose: 100 mg Escitalopram Oxalate (Lexapro) 10 mg PO DAILY [facility] Last Admin: 05/20/18 08:59 Dose: 10 mg Famotidine (Pepcid) 40 mg PO HS [facility] Last Admin: 05/19/18 21:16 Dose: 40 mg Gabapentin (Neurontin) 600 mg PO DAILY@1999 [facility] Last Admin: 05/20/18 20:19 Dose: 600 mg Hydralazine HCl (Apresoline) 25 mg PO Q8 PRN PRN Reason: for systolic bp >160mmhg Last Admin: 05/08/18 08:12 Dose: 25 mg Losartan Potassium (Cozaar) 100 mg PO DAILY [facility] Last Admin: 05/20/18 08:59 Dose: 100 mg Magnesium Hydroxide (Milk Of Magnesia) 30 ml PO DAILY PRN PRN Reason: Constipation Last Admin: 05/05/18 21:49 Dose: 30 ml Metoprolol Tartrate (Lopressor) 50 mg PO Q12 [facility] Tizanidine HCl (Zanaflex) 4 mg PO HS PRN PRN Reason: Muscle spasm Last Admin: 05/19/18 21:17 Dose: 4 mg - Labs Labs: 05/05/18 05:30 05/12/18 06:18 - Head Exam Head Exam: NORMAL INSPECTION - Eye Exam Eye Exam: Normal appearance - ENT Exam ENT Exam: Mucous Membranes Moist - Respiratory Exam Respiratory Exam: Clear to Ausculation Bilateral - Cardiovascular Exam Cardiovascular Exam: REGULAR RHYTHM - GI/Abdominal Exam GI & Abdominal Exam: Normal Bowel Sounds - Neurological Exam Neurological Exam: Awake, Oriented x3 - Psychiatric Exam Psychiatric exam: Normal Affect Assessment and Plan (1) Neurologic gait dysfunction Status: Acute (2) Status post CVA Status: Acute (3) History of subdural hematoma (post traumatic) Status: Acute (4) Hypertension Status: Chronic (5) Hyponatremia Status: Acute - Assessment and Plan (Free Text) Plan: Con tmeds Con ttx check lab next week
--- NOTE | 2018-05-20 20:26 | CP.PCM.PN ---
Subjective - Date & Time of Evaluation Date of Evaluation: 05/20/18 Time of Evaluation: 11:00 - Subjective Subjective: feels a lot btetr today desires to be off from fluid restriction Has no headaches or dizziness Doing well with PT Objective - Vital Signs/Intake and Output Vital Signs (last 24 hours): Temp Pulse Resp BP Pulse Ox 97.9 F 72 20 116/74 97 05/20/18 20:00 05/20/18 20:00 05/20/18 20:00 05/20/18 20:00 05/20/18 20:00 - Medications Medications: Current Medications Acetaminophen (Tylenol 325mg Tab) 650 mg PO Q6 PRN PRN Reason: Headache Last Admin: 05/19/18 18:36 Dose: 650 mg Albuterol/Ipratropium (Duoneb 3 Mg/0.5 Mg (3 Ml) Ud) 3 ml IH RQ6 PRN PRN Reason: Shortness of Breath Allopurinol (Zyloprim) 300 mg PO DAILY [facility] Last Admin: 05/20/18 09:00 Dose: 300 mg Amlodipine Besylate (Norvasc) 10 mg PO DAILY [facility] Last Admin: 05/20/18 08:59 Dose: 10 mg Atorvastatin Calcium (Lipitor) 80 mg PO HS [facility] Last Admin: 05/19/18 21:17 Dose: 80 mg Bisacodyl (Dulcolax) 10 mg [place] DAILY PRN PRN Reason: Constipation Last Admin: 05/07/18 17:10 Dose: 10 mg Docusate Sodium (Colace) 100 mg PO BID [facility] Last Admin: 05/20/18 17:25 Dose: 100 mg Escitalopram Oxalate (Lexapro) 10 mg PO DAILY [facility] Last Admin: 05/20/18 08:59 Dose: 10 mg Famotidine (Pepcid) 40 mg PO HS [facility] Last Admin: 05/19/18 21:16 Dose: 40 mg Gabapentin (Neurontin) 600 mg PO DAILY@1999 [facility] Last Admin: 05/20/18 20:19 Dose: 600 mg Hydralazine HCl (Apresoline) 25 mg PO Q8 PRN PRN Reason: for systolic bp >160mmhg Last Admin: 05/08/18 08:12 Dose: 25 mg Losartan Potassium (Cozaar) 100 mg PO DAILY [facility] Last Admin: 05/20/18 08:59 Dose: 100 mg Magnesium Hydroxide (Milk Of Magnesia) 30 ml PO DAILY PRN PRN Reason: Constipation Last Admin: 05/05/18 21:49 Dose: 30 ml Metoprolol Tartrate (Lopressor) 50 mg PO Q12 [facility] Tizanidine HCl (Zanaflex) 4 mg PO HS PRN PRN Reason: Muscle spasm Last Admin: 05/19/18 21:17 Dose: 4 mg - Labs Labs: 05/05/18 05:30 05/12/18 06:18 - Head Exam Head Exam: NORMAL INSPECTION - Eye Exam Eye Exam: Normal appearance - Respiratory Exam Respiratory Exam: Clear to Ausculation Bilateral - Cardiovascular Exam Cardiovascular Exam: REGULAR RHYTHM - GI/Abdominal Exam GI & Abdominal Exam: Normal Bowel Sounds - Neurological Exam Neurological Exam: CN II-XII Intact, Oriented x3 Assessment and Plan (1) Neurologic gait dysfunction Status: Acute (2) Status post CVA Status: Acute (3) History of subdural hematoma (post traumatic) Status: Acute (4) Hypertension Status: Chronic - Assessment and Plan (Free Text) Plan: Cpnt meds Cont tx Cont meds Dc fluid restriction check labs in am
[2018-05-21 06:35] LABS: BASO % 0.7 % (0.0-2.0); EOS # 0.2 K/uL (0.0-0.7); HEMOGLOBIN 13.1 g/dL (12.0-18.0); LYMPH # 1.3 K/uL (1.0-4.3); LYMPH % 22.9 % (20.0-40.0); MEAN CELL VOLUME 96.9 fl (80.0-94.0); MEAN CORPUSCULAR HEMOGLOBIN 33.8 pg (27.0-31.0); MEAN CORPUSCULAR HGB CONC 34.9 g/dL (33.0-37.0); MEAN PLATELET VOLUME 6.7 fl (7.2-11.7); MONO # 0.6 K/uL (0.0-0.8); MONO % 9.5 % (0.0-10.0); NEUT # 3.7 K/uL (1.8-7.0); NEUT % 63.9 % (50.0-75.0); NRBC % 0.1 % (0.0-0.0); RBC 3.86 Mil/uL (4.40-5.90); RED CELL DISTRIBUTION WIDTH 15.1 % (11.5-14.5); WHITE BLOOD COUNT 5.8 K/uL (4.8-10.8)
[2018-05-21 07:00] LABS: ALB/GLOB RATIO 1.4 (1.0-2.1); ALBUMIN 3.9 g/dL (3.5-5.0); ALT/SGPT 47 U/L (21-72); AST/SGOT 27 U/L (17-59); BLOOD UREA NITROGEN 17 mg/dl (9-20); CALCIUM 8.6 mg/dL (8.4-10.2); GFR AFRICAN-AMERICAN > 60; GFR NON-AFRICAN AMERICAN > 60
[2018-05-21 10:53] LABS: URIC ACID 2.8 mg/Dl (3.5-8.5)
--- NOTE | 2018-05-21 11:15 | CP.PCM.PN ---
Subjective - Date & Time of Evaluation Date of Evaluation: 05/21/18 Time of Evaluation: 11:14 - Subjective Subjective: Noted hyponatremia Has no dizziness Bp is stable. Objective - Vital Signs/Intake and Output Vital Signs (last 24 hours): Temp Pulse Resp BP Pulse Ox 97.5 F L 56 L 18 128/76 97 05/21/18 07:46 05/21/18 08:24 05/21/18 07:46 05/21/18 08:24 05/21/18 07:46 - Medications Medications: Current Medications Acetaminophen (Tylenol 325mg Tab) 650 mg PO Q6 PRN PRN Reason: Headache Last Admin: 05/19/18 18:36 Dose: 650 mg Albuterol/Ipratropium (Duoneb 3 Mg/0.5 Mg (3 Ml) Ud) 3 ml IH RQ6 PRN PRN Reason: Shortness of Breath Allopurinol (Zyloprim) 300 mg PO DAILY [facility] Last Admin: 05/21/18 08:24 Dose: 300 mg Amlodipine Besylate (Norvasc) 10 mg PO DAILY [facility] Last Admin: 05/21/18 08:24 Dose: 10 mg Atorvastatin Calcium (Lipitor) 80 mg PO HS [facility] Last Admin: 05/20/18 21:35 Dose: 80 mg Bisacodyl (Dulcolax) 10 mg [place] DAILY PRN PRN Reason: Constipation Last Admin: 05/07/18 17:10 Dose: 10 mg Docusate Sodium (Colace) 100 mg PO BID [facility] Last Admin: 05/21/18 08:22 Dose: 100 mg Escitalopram Oxalate (Lexapro) 10 mg PO DAILY [facility] Last Admin: 05/21/18 08:23 Dose: 10 mg Famotidine (Pepcid) 40 mg PO HS [facility] Last Admin: 05/20/18 21:34 Dose: 40 mg Gabapentin (Neurontin) 600 mg PO DAILY@2000 [facility] Last Admin: 05/20/18 20:19 Dose: 600 mg Hydralazine HCl (Apresoline) 25 mg PO Q8 PRN PRN Reason: for systolic bp >160mmhg Last Admin: 05/08/18 08:12 Dose: 25 mg Losartan Potassium (Cozaar) 100 mg PO DAILY [facility] Last Admin: 05/21/18 08:22 Dose: 100 mg Magnesium Hydroxide (Milk Of Magnesia) 30 ml PO DAILY PRN PRN Reason: Constipation Last Admin: 05/05/18 21:49 Dose: 30 ml Metoprolol Tartrate (Lopressor) 50 mg PO Q12 [facility] Last Admin: 05/21/18 08:23 Dose: Not Given Tizanidine HCl (Zanaflex) 4 mg PO HS PRN PRN Reason: Muscle spasm Last Admin: 05/20/18 21:50 Dose: 4 mg - Labs Labs: 05/21/18 05:15 05/21/18 05:15 - Head Exam Head Exam: NORMAL INSPECTION - Eye Exam Eye Exam: Normal appearance - ENT Exam ENT Exam: Mucous Membranes Moist - Respiratory Exam Respiratory Exam: Clear to Ausculation Bilateral - Cardiovascular Exam Cardiovascular Exam: REGULAR RHYTHM - GI/Abdominal Exam GI & Abdominal Exam: Normal Bowel Sounds - Neurological Exam Neurological Exam: Awake, Oriented x3 Assessment and Plan (1) Neurologic gait dysfunction Status: Acute (2) Status post CVA Status: Acute (3) History of subdural hematoma (post traumatic) Status: Acute (4) Hypertension Status: Chronic (5) Hyponatremia Status: Acute - Assessment and Plan (Free Text) Plan: Con tmeds nephrology eval Cont meds Cont PT
[2018-05-21 14:00] LABS: CREATININE, RANDOM URINE 216.9 mg/dL
--- NOTE | 2018-05-21 18:48 | CP.PCM.CON ---
History of Present Illness - History of Present Illness History of Present Illness: pt is seen and examined, full consult is dictated #[id number] 1. hyponatremia picture c/w siadh sec to drugs, lexapro and /or hypothyroidism , SDH consider to change lexapro will add nacl tab 1 gm po tid high protein diet if na does not improve with above will consider Tolvaptan consider synthroid, check t3,t4 Past Patient History - Infectious Disease Hx of Infectious Diseases: None - Tetanus Immunizations Tetanus Immunization: Unknown - Past Medical History & Family History Past Medical History?: Yes - Past Social History Smoking Status: Never Smoked Alcohol: None Drugs: Denies Home Situation {Lives}: With Family (+elev) - CARDIAC Hx Cardiac Disorders: Yes Hx Hypertension: Yes - PULMONARY Hx Chronic Obstructive Pulmonary Disease (COPD): Yes - NEUROLOGICAL HX Cerebrovascular Accident: Yes - HEENT Hx Cataracts: Yes (b/l cataract removal) Other/Comment: tonsillectomy - RENAL Hx Chronic Kidney Disease: No - ENDOCRINE/METABOLIC Hx Hypothyroidism: Yes - HEMATOLOGICAL/ONCOLOGICAL Hx AIDS: No Hx Blood Transfusions: No Hx Blood Transfusion Reaction: No Hx Human Immunodeficiency Virus (HIV): No - INTEGUMENTARY Hx Dermatological Problems: No - MUSCULOSKELETAL/RHEUMATOLOGICAL Hx Falls: Yes - GASTROINTESTINAL Other/Comment: inguinal hernia repair - GENITOURINARY/GYNECOLOGICAL Hx Genitourinary Disorders: No - PSYCHIATRIC Hx Substance Use: No - SURGICAL HISTORY Hx Surgeries: Yes - ANESTHESIA Hx Anesthesia Reactions: No Hx Malignant Hyperthermia: No Meds Allergies/Adverse Reactions: Allergies Allergy/AdvReac Type Severity Reaction Status Date / Time No Known Allergies Allergy Verified 05/04/18 15:55 - Medications Medications: Current Medications Acetaminophen (Tylenol 325mg Tab) 650 mg PO Q6 PRN PRN Reason: Headache Last Admin: 05/19/18 18:36 Dose: 650 mg Albuterol/Ipratropium (Duoneb 3 Mg/0.5 Mg (3 Ml) Ud) 3 ml IH RQ6 PRN PRN Reason: Shortness of Breath Allopurinol (Zyloprim) 300 mg PO DAILY [facility] Last Admin: 05/21/18 08:24 Dose: 300 mg Amlodipine Besylate (Norvasc) 10 mg PO DAILY [facility] Last Admin: 05/21/18 08:24 Dose: 10 mg Atorvastatin Calcium (Lipitor) 80 mg PO HS [facility] Last Admin: 05/20/18 21:35 Dose: 80 mg Bisacodyl (Dulcolax) 10 mg [place] DAILY PRN PRN Reason: Constipation Last Admin: 05/07/18 17:10 Dose: 10 mg Docusate Sodium (Colace) 100 mg PO BID [facility] Last Admin: 05/21/18 16:55 Dose: 100 mg Escitalopram Oxalate (Lexapro) 10 mg PO DAILY [facility] Last Admin: 05/21/18 08:23 Dose: 10 mg Famotidine (Pepcid) 40 mg PO HS [facility] Last Admin: 05/20/18 21:34 Dose: 40 mg Gabapentin (Neurontin) 600 mg PO DAILY@1999 [facility] Last Admin: 05/20/18 20:19 Dose: 600 mg Hydralazine HCl (Apresoline) 25 mg PO Q8 PRN PRN Reason: for systolic bp >160mmhg Last Admin: 05/08/18 08:12 Dose: 25 mg Losartan Potassium (Cozaar) 100 mg PO DAILY [facility] Last Admin: 05/21/18 08:22 Dose: 100 mg Magnesium Hydroxide (Milk Of Magnesia) 30 ml PO DAILY PRN PRN Reason: Constipation Last Admin: 05/05/18 21:49 Dose: 30 ml Metoprolol Tartrate (Lopressor) 50 mg PO Q12 [facility] Last Admin: 05/21/18 08:23 Dose: Not Given Tizanidine HCl (Zanaflex) 4 mg PO HS PRN PRN Reason: Muscle spasm Last Admin: 05/20/18 21:50 Dose: 4 mg Results - Vital Signs Recent Vital Signs: Last Vital Signs Temp 97.5 F L 05/21/18 07:46 Pulse 70 05/21/18 13:45 Resp 18 05/21/18 07:46 BP 122/76 05/21/18 13:45 Pulse Ox 98 05/21/18 13:45 - Labs Result Diagrams: 05/21/18 05:15 05/21/18 05:15 Labs: Laboratory Results - last 24 hr 05/21/18 05/21/18 05/21/18 05:15 05:15 10:46 WBC 5.8 RBC 3.86 L Hgb 13.1 Hct 37.4 MCV 96.9 H MCH 33.8 H MCHC 34.9 RDW 15.1 H Plt Count 223 MPV 6.7 L Neut % (Auto) 63.9 Lymph % (Auto) 22.9 Mayes % (Auto) 9.5 Eos % (Auto) 3.0 Baso % (Auto) 0.7 Neut # (Auto) 3.7 Lymph # (Auto) 1.3 Mayes # (Auto) 0.6 Eos # (Auto) 0.2 Baso # (Auto) 0.0 Sodium 123 L Potassium 4.0 Chloride 90 L Carbon Dioxide 22 Anion Gap 15 BUN 17 Creatinine 1.0 Est GFR ( Amer) > 60 Est GFR (Non-Af Amer) > 60 Random Glucose 99 Uric Acid 2.8 L Calcium 8.6 Total Bilirubin 0.8 AST 27 ALT 47 Alkaline Phosphatase 63 Total Protein 6.7 Albumin 3.9 Globulin 2.8 Albumin/Globulin Ratio 1.4 TSH 3rd Generation 11.70 H Urine Osmolality Ur Random Creatinine Ur Random Sodium Ur Random Potassium 05/21/18 05/21/18 13:30 13:30 WBC RBC Hgb Hct MCV MCH MCHC RDW Plt Count MPV Neut % (Auto) Lymph % (Auto) Mayes % (Auto) Eos % (Auto) Baso % (Auto) Neut # (Auto) Lymph # (Auto) Mayes # (Auto) Eos # (Auto) Baso # (Auto) Sodium Potassium Chloride Carbon Dioxide Anion Gap BUN Creatinine Est GFR ( Amer) Est GFR (Non-Af Amer) Random Glucose Uric Acid Calcium Total Bilirubin AST ALT Alkaline Phosphatase Total Protein Albumin Globulin Albumin/Globulin Ratio TSH 3rd Generation Urine Osmolality 553 Ur Random Creatinine 216.9 Ur Random Sodium 48 Ur Random Potassium 54.2
--- NOTE | 2018-05-21 19:44 | CP.PCM.PN ---
Subjective - Date & Time of Evaluation Date of Evaluation: 05/21/18 Time of Evaluation: 19:43 - Subjective Subjective: Patient seen in the room, doing ok denies sob/cp left UE with improved ROM and dexterity ambulating 100' will have a team conf. tomorrow for further d/c plans continue current care Objective - Vital Signs/Intake and Output Vital Signs (last 24 hours): Temp Pulse Resp BP Pulse Ox 97.5 F L 70 18 122/76 98 05/21/18 07:46 05/21/18 13:45 05/21/18 07:46 05/21/18 13:45 05/21/18 13:45 - Medications Medications: Current Medications Acetaminophen (Tylenol 325mg Tab) 650 mg PO Q6 PRN PRN Reason: Headache Last Admin: 05/19/18 18:36 Dose: 650 mg Albuterol/Ipratropium (Duoneb 3 Mg/0.5 Mg (3 Ml) Ud) 3 ml IH RQ6 PRN PRN Reason: Shortness of Breath Allopurinol (Zyloprim) 300 mg PO DAILY [facility] Last Admin: 05/21/18 08:24 Dose: 300 mg Amlodipine Besylate (Norvasc) 10 mg PO DAILY [facility] Last Admin: 05/21/18 08:24 Dose: 10 mg Atorvastatin Calcium (Lipitor) 80 mg PO HS [facility] Last Admin: 05/20/18 21:35 Dose: 80 mg Bisacodyl (Dulcolax) 10 mg [place] DAILY PRN PRN Reason: Constipation Last Admin: 05/07/18 17:10 Dose: 10 mg Docusate Sodium (Colace) 100 mg PO BID [facility] Last Admin: 05/21/18 16:55 Dose: 100 mg Escitalopram Oxalate (Lexapro) 10 mg PO DAILY [facility] Last Admin: 05/21/18 08:23 Dose: 10 mg Famotidine (Pepcid) 40 mg PO HS [facility] Last Admin: 05/20/18 21:34 Dose: 40 mg Gabapentin (Neurontin) 600 mg PO DAILY@1999 [facility] Last Admin: 05/20/18 20:19 Dose: 600 mg Hydralazine HCl (Apresoline) 25 mg PO Q8 PRN PRN Reason: for systolic bp >160mmhg Last Admin: 05/08/18 08:12 Dose: 25 mg Losartan Potassium (Cozaar) 100 mg PO DAILY [facility] Last Admin: 05/21/18 08:22 Dose: 100 mg Magnesium Hydroxide (Milk Of Magnesia) 30 ml PO DAILY PRN PRN Reason: Constipation Last Admin: 05/05/18 21:49 Dose: 30 ml Metoprolol Tartrate (Lopressor) 50 mg PO Q12 [facility] Last Admin: 05/21/18 08:23 Dose: Not Given Sodium Chloride (Sodium Chloride Tab) 1 gm PO Q8 [facility] Tizanidine HCl (Zanaflex) 4 mg PO HS PRN PRN Reason: Muscle spasm Last Admin: 05/20/18 21:50 Dose: 4 mg - Labs Labs: 05/21/18 05:15 05/21/18 05:15
[2018-05-22 06:37] LABS: BLOOD UREA NITROGEN 17 mg/dl (9-20); CALCIUM 8.7 mg/dL (8.4-10.2); GFR AFRICAN-AMERICAN > 60; GFR NON-AFRICAN AMERICAN > 60
[2018-05-22 06:54] LABS: T3 UPTAKE 42.2 % (23.0-41.0)
[2018-05-22 07:08] LABS: T3 0.711 nmol/L (1.49-2.60)
--- NOTE | 2018-05-22 10:23 | CP.PCM.PN ---
Subjective - Date & Time of Evaluation Date of Evaluation: 05/22/18 Time of Evaluation: 10:23 - Subjective Subjective: pt is seen and examined, follow up consult is dictated #[id number] Objective - Vital Signs/Intake and Output Vital Signs (last 24 hours): Temp Pulse Resp BP Pulse Ox 98.2 F 63 20 143/78 95 05/22/18 09:00 05/22/18 09:00 05/22/18 09:00 05/22/18 09:00 05/21/18 20:54 - Medications Medications: Current Medications Acetaminophen (Tylenol 325mg Tab) 650 mg PO Q6 PRN PRN Reason: Headache Last Admin: 05/19/18 18:36 Dose: 650 mg Albuterol/Ipratropium (Duoneb 3 Mg/0.5 Mg (3 Ml) Ud) 3 ml IH RQ6 PRN PRN Reason: Shortness of Breath Allopurinol (Zyloprim) 300 mg PO DAILY [facility] Last Admin: 05/22/18 08:25 Dose: 300 mg Amlodipine Besylate (Norvasc) 10 mg PO DAILY [facility] Last Admin: 05/22/18 08:26 Dose: 10 mg Atorvastatin Calcium (Lipitor) 80 mg PO [facility] Last Admin: 05/21/18 21:50 Dose: 80 mg Bisacodyl (Dulcolax) 10 mg [place] DAILY PRN PRN Reason: Constipation Last Admin: 05/07/18 17:10 Dose: 10 mg Docusate Sodium (Colace) 100 mg PO BID [facility] Last Admin: 05/22/18 08:25 Dose: 100 mg Famotidine (Pepcid) 40 mg PO HS [facility] Last Admin: 05/21/18 21:50 Dose: 40 mg Gabapentin (Neurontin) 600 mg PO DAILY@1999 [facility] Last Admin: 05/21/18 20:32 Dose: 600 mg Hydralazine HCl (Apresoline) 25 mg PO Q8 PRN PRN Reason: for systolic bp >160mmhg Last Admin: 05/08/18 08:12 Dose: 25 mg Levothyroxine Sodium (Synthroid) 75 mcg PO DAILY@0630 [facility] Losartan Potassium (Cozaar) 100 mg PO DAILY [facility] Last Admin: 05/22/18 08:26 Dose: 100 mg Magnesium Hydroxide (Milk Of Magnesia) 30 ml PO DAILY PRN PRN Reason: Constipation Last Admin: 05/05/18 21:49 Dose: 30 ml Metoprolol Tartrate (Lopressor) 50 mg PO Q12 [facility] Last Admin: 05/22/18 08:25 Dose: 50 mg Sodium Chloride (Sodium Chloride Tab) 1 gm PO Q8 [facility] Last Admin: 05/22/18 05:34 Dose: 1 gm Tizanidine HCl (Zanaflex) 4 mg PO HS PRN PRN Reason: Muscle spasm Last Admin: 05/21/18 20:37 Dose: 4 mg - Labs Labs: 05/21/18 05:15 05/22/18 05:25
--- NOTE | 2018-05-22 11:25 | CON ---
DATE: 05/21/2018 RENAL CONSULTATION LOCATION: The patient is located in room 623, bed 1 rehab. REQUESTED BY: Charles Linder MD REASON FOR CONSULTATION: Hyponatremia for further evaluation. HISTORY OF PRESENT ILLNESS: The patient is a 72-year-old elderly Marshallese male with a past medical history significant for longstanding hypertension, diabetes, CHF, CVA with left-sided weakness, residual ambulates with a cane in the house, and obstructive sleep apnea, who was admitted with not feeling well and laceration to the hand and found to have a left subdural hematoma on 04/28/2018, and subsequently, the patient underwent craniotomy and evacuation of hematoma on 04/30/2018 in [facility]. Subsequently, the patient was transferred to [facility] in acute rehab for continuation of the physical therapy. The patient is not in acute distress. Denies any headache. Denies any chest pain or palpitation. Denies any fever or cough. Denies any nausea, vomiting, or diarrhea. Denies any swelling of the legs at this time. No urinary symptoms. PAST MEDICAL HISTORY: Significant for longstanding hypertension, COPD, CHF, hypertension, hypothyroidism, sleep apnea, history of CVA, BPH, and hyperglycemia from steroids. PAST SURGICAL HISTORY: Status post fall and subdural hematoma, status post evacuation of hematoma on 04/30/2018. ALLERGIES: NO KNOWN DRUG ALLERGIES. SOCIAL HISTORY: The patient was an ex-smoker. No alcohol. No drugs at this time. PERSONAL HISTORY: He is , and he was three times. He does not remember how many children he has; the youngest one is about 9 years. FAMILY HISTORY: Not significant. CURRENT MEDICATIONS: Include hydralazine 25 mg p.o. every 8 hours, Colace 100 mg p.o. b.i.d., Cozaar 100 mg p.o. daily, Dulcolax 10 mg per rectal daily, DuoNeb inhaler, Lexapro 10 mg p.o. daily, Lipitor 80 mg at bedtime, metoprolol 50 mg p.o. every 12 hours, Milk of Magnesia, gabapentin 600 mg p.o. daily, Norvasc 10 mg daily, Pepcid 40 mg p.o. at bedtime, Tylenol, Zanaflex 4 mg p.o. at bedtime, and allopurinol 300 mg p.o. daily. REVIEW OF SYSTEMS: Significant for a recent subdural hematoma evacuation and dysarthria. All other review of systems are reviewed and are negative except left-sided weakness. PHYSICAL EXAMINATION: VITAL SIGNS: Blood pressure 133/60, pulse 68, respirations 20, temperature 98.2, saturation 95%. Height 5 feet 5 inches and weight is 165 pounds. GENERAL: The patient is a 72-year-old elderly Marshallese male, moderately built, moderately nourished, not in acute distress. HEENT: The patient having scar on the left frontoparietal area. Pupils, normal reactive to light and accommodation. Conjunctivae pink. Sclerae anicteric. Tongue is moist and trachea is midline. LUNGS: Symmetric on both sides. Bilateral breath sounds present. Clear to auscultation. CVS: [place] at the fifth intercostal space of intermediate and midclavicular line. S1, S2 audible. No murmur. No gallop. ABDOMEN: Normal in appearance, soft, tympanic. No guarding. No rigidity. No hepatosplenomegaly. MANAGER PET: The patient is alert, awake, oriented x 2 to 3. Sensory system is grossly within normal limits. Motor system, power of 3 to 4 on the left upper extremity and left lower extremity and 4 to 5 on the right side. Deep tendon reflexes 2+. EXTREMITIES: No cyanosis, no clubbing, no edema. LABORATORY DATA: Include as follows: As of 05/11/2018, sodium 127, potassium 4.3, chloride 97, CO2 19, BUN 21, creatinine 0.9, glucose 108. As of 05/12/2018, sodium 131, potassium 4.5, chloride 97, CO2 of 25, BUN 19, creatinine 0.8, glucose 131, calcium 8.2. Total bili 0.8, AST 57, ALT 101, alkaline phosphatase 67, total protein 6.5, albumin is 3.6. His current laboratory data as of 05/21/2018, WBC 5.8, hemoglobin 13.1, hematocrit is 37.4, platelets 223. Sodium 123, potassium is 4, chloride of 90, CO2 22, BUN 17, creatinine 1.0, glucose 99, ad calcium 8.6. Total bili 0.8, AST 27, ALT 47, alkaline phos 63, total protein 6.7, albumin 3.9. OTHER LABORATORY DATA: Uric acid level is 2.8 and TSH is 11.6, 0.42 and urine osmolality is 553. Urine creatinine ____(09:23), urine sodium is 48, and urine potassium is 54. His other reports; his sodium as of 04/25/2018, 118; as of 05/06/2018, 123; as of 05/07/2018, 128; as of 05/08/2018, 129; as of 05/11/2018, 127; as of 05/12/2018, 131. ASSESSMENT: 1. In summary, the patient is a 72-year-old elderly Marshallese male with a history of hypertension, diabetes, chronic obstructive pulmonary disease, congestive heart failure, cerebrovascular accident, sleep apnea, cerebrovascular accident with left-sided weakness, status post fall with subdural hematoma, status post evacuation of hematoma on 04/30/2018 in [facility] by craniotomy, was admitted here, to rehab on 05/04/2018 for continuation of the physical therapy with the low sodium. 2. Hyponatremia, most likely secondary to syndrome of inappropriate antidiuretic hormone secretion, secondary to multifactorial, secondary to subdural hematoma and recent subdural hematoma, and also Lexapro, and hypothyroidism. 3. Hypertension. Blood pressure is stable. 4. Cerebrovascular accident with left-sided weakness and dysarthria. 5. Hypothyroidism. PLAN: The patient will continue fluid restriction 1 liter per day as per Dr. Linder, and we will add sodium chloride tablet 1 gm p.o. t.i.d., and consider treating hypothyroidism and add Synthroid. Repeat BMP in a.m. daily and also high-protein diet, Ensure 1 can p.o. b.i.d.. If the patient's sodium does not improve with the above measures, we will consider tolvaptan. We will follow with you. Thank you for allowing me to participate in your patient's care. Vannesa Zaman MD
--- NOTE | 2018-05-22 13:27 | PSY.TMCNF ---
Nursing - Vital Signs Vital Signs (Last 8 hours): Vital Signs 05/22/18 05/22/18 05/22/18 08:25 08:26 09:00 Temperature 98.2 F Pulse Rate 63 63 63 Respiratory 20 Rate Blood Pressure 143/78 143/78 143/78 05/22/18 10:00 Temperature Pulse Rate 63 Respiratory Rate Blood Pressure 143/78 Pain: 0 - Precautions: Precautions: Fall Prevention, Aspiration, Cardiac/Pulmonary, Seizure - Medications/Other Issues Comment: hyponatremia - Consults Comment: Dr. Min, Dr. Zaman - Skin Incision Site: Left parietal Incision: [place] Intact, Sutures Intact, No Drainage Noted Incision Line Treatment: Open to air - Toileting Toileting: Minimal Assistance - Bladder Management Bladder Pattern: Normal Voiding Method: Toilet, Urinal Bladder Management: Minimal Assistance - Bowel Management Bowel Pattern: Normal Bowel Management: Contact Guard - Transfers Transfers: Contact Guard - ADL's ADL's: Minimal Assistance - Pain Management Comments: on tylenol for pain - Patient/Family Teaching Comments: Safety, Post CVA care - Goals/Time Frame Comments: Per [facility] team. - Provider Provider: Aashish Espinoza Physical Therapy - Bed Mobility Bed Mobility: Supervision - Transfers Wheelchair to Mat: Supervision, Verbal Cues Sit to Stand: Supervision Comment: RW - Ambulation Level of Assistance: Supervision, Verbal Cues Distance (ft.): 125 Assistive Devices: Rolling Walker - Stair Negotiation Stairs: Level of Assistance: Verbal Cues, Minimal Assistance, Moderate Assistance Comment: 2 steps with B rails with min/mod A --> patient does not negotiate stairs in the community as he has elevator access and uses power chair in community - Standing Balance Static Stand: Supervision Dynamic Stand: Supervision, Contact Guard Assist Comment: RW - Pain Pain (assessed during therapy session): 0 Comment: pt denies pain - Insight/Carryover Insight/Carryover: Fair - Patient/Family Education Comment: safety, therapy schedule, therapy goals, mobility, stroke recovery, brain hemorrhage recovery, fall reduction, footwear, POC, discharge planning, DME - Assessment/Plan Assessment: Pt is agreeable to participate in 1:1 and group recreation therapy sessions. Pt participates in word finding, memory, and direction following related leisure tasks. Pt does well with tasks following orientation to task and requires verbal cues for direction following at times. Pt requires min-mod verbal cues for clues for word finding for pt to initiate the correct response related to category. Pt tolerates duration of sessions and demonstrates improved arousal level and attention to task. Pt will continue to benefit from participating in recreation therapy sessions throughout stay on unit. - Goals Timeframe: 7 days Goals: ambulate 150 feet with RW with mod I. all transfers with mod I with RW. mod I with all bed/mat mobility - Provider Therapist: M License Number: [id number] Occupational Therapy - Arousal/Attention/Orientation Patient Orientation: Person, Place, Time, Appropriate to Age, Appropriate to Situation - ADL/IADL Self Feeding: Modified Independent Grooming: Supervision, Set-up Help Bathing-Upper Extremity: Verbal Cues, Set-up Help, Minimal Assistance Bathing-Lower Extremity: Verbal Cues, Set-up Help, Minimal Assistance Dressing-Upper Extremity: Independent, Set-up Help Dressing-Lower Extremity: Supervision, Verbal Cues, Contact Guard - Sitting Balance Static Sitting: Independent without upper extremity support Dynamic Sitting: Reaches across midline, Reaches out of base of support, Reaches within base of support Comment: seated unsupported @ edge of bed - Transfers Wheelchair to Bed Transfers: Supervision, Verbal Cues, Set-up Help, Contact Guard Toilet Transfers: Supervision, Verbal Cues, Set-up Help, Contact Guard - Wheelchair Management Level of Assistance: Minimal Assistance Distance (ft.): 50 - Upper Extremity Status Right Upper Extremity Comment: WFL Left Upper Extremity Comment: PROM is WFLs, strength 3-/5 throughout--working out of synergy - Pain Pain (assessed during therapy session): 0 Comment: pt denies pain - Insight/Carryover Insight/Carryover: Fair - Patient/Family Education Comment: safety, therapy schedule, therapy goals, mobility, stroke recovery, brain hemorrhage recovery, fall reduction, footwear, POC, discharge planning, DME - Assessment/Plan Assessment: Pt is agreeable to participate in 1:1 and group recreation therapy sessions. Pt participates in word finding, memory, and direction following related leisure tasks. Pt does well with tasks following orientation to task and requires verbal cues for direction following at times. Pt requires min-mod verbal cues for clues for word finding for pt to initiate the correct response related to category. Pt tolerates duration of sessions and demonstrates improved arousal level and attention to task. Pt will continue to benefit from participating in recreation therapy sessions throughout stay on unit. - Goals Timeframe: 7 days Goals: ambulate 150 feet with RW with mod I. all transfers with mod I with RW. mod I with all bed/mat mobility - Provider Therapist: Betsey Price, OTR/L Speech Therapy - Consult Information Patient on Program: Yes Medical Diagnosis: L SDH Treatment Diagnosis: mild cognitive deficits - Assessment Problem Solving Impairment: Mild Memory Impairment: Mild - Plan Assessment: Pt is agreeable to participate in 1:1 and group recreation therapy sessions. Pt participates in word finding, memory, and direction following related leisure tasks. Pt does well with tasks following orientation to task and requires verbal cues for direction following at times. Pt requires min-mod verbal cues for clues for word finding for pt to initiate the correct response related to category. Pt tolerates duration of sessions and demonstrates improved arousal level and attention to task. Pt will continue to benefit from participating in recreation therapy sessions throughout stay on unit. - Provider Therapist: Keely Zabala License Number: [id number] Recreational Therapy - Participation Participation: Participates in Individual and/or Group Sessions - Attendance Attendance: 3-5 times per week - Activities Leisure Activities: Cards and Games - Socialization Level of Socialization: Initiates/interacts freely with care givers and peer - Assessment Assessment/Plan: Pt is agreeable to participate in 1:1 and group recreation therapy sessions. Pt participates in word finding, memory, and direction following related leisure tasks. Pt does well with tasks following orientation to task and requires verbal cues for direction following at times. Pt requires min-mod verbal cues for clues for word finding for pt to initiate the correct response related to category. Pt tolerates duration of sessions and demonstrates improved arousal level and attention to task. Pt will continue to benefit from participating in recreation therapy sessions throughout stay on unit. Problems Currently Limiting Participation: L side UE and LE weakness, decrease direction following, decrease command following, decrease recall, decrease thought organization, decrease attention to task Goals and Time Frame: Pt will be encouraged to participate in 1:1 and group recreation therapy sessions 3-5x week to improve direction following, problem solving, short-term and long-term memory recall, L side weakness, and overall arousal level and mood state. - Provider Therapist: Alta Booth, [employer] OPERATOR #[id number] Nutrition - Current Diet Current Diet/ Supplement/ Feedings: 2 gram Na soft ensure plus 8 ounces 2 per day - Appetite Percent Meal Consumed: 75-100% - Comments Comments: Safety, Post CVA care - Assessment/Goals/Time Frame Assessment/Goals/Time Frame: hyponatremia - Provider Provider: Brittney Ford RD Case Management - Psychosocial Assessment Support Systems: Cintia Gong (evangelical friend)- [phone]. Nicole Corbett (neighbor)- [phone] Psychological Interventions/Needs: Patient is alert and oriented with periods of forgetfulness. Discharge Concerns: Patient lives alone with limited support during the day. Patient with impaired safety awareness and insight Patient/Family Meeting: CM met with patient and rehab team Intervention/Goal/Outcome:: 1. Goal: 24 hour supervision/care at home. 2. Plan: [facility]- CM spoke with Cintia Gong via telephone as patient reports inconsistent information. Per [place], patient lives alone in an elevator access senior building. Patient was primarily a household ambulator with a RW and was independent with ADLs. [place] states she was visiting patient 2-3 times a week and assisted patient with cooking and grocery shopping. Patient was also receives lunches through meals on wheels. Patient's neighbors Nicole and Panfilo checked in on patient every so often. [facility] states patient does have 5 children, however, has been estranged from them for years. Patient known to [facility] from previous admission and reports having a good experience with therapy and would like to return there after completion of acute rehab. 3. Tentative discharge date: 05/28/2018 pending insurance authorization, LAD: 05/08. 4. continued emotional support. - Discharge Plan Discharge Plan: Subacute care - Provider Provider: GABBI Joe, ENVIRONMENTAL STUDIES DEPARTMENT CHAIR License Number: [id number] Rehabilitation Plan - Treatment Plan Treatment Plan: Physical Therapy, Occupational Therapy, Speech, Dietary, Patient /Family Education - Discharge Plan Estimated Date of Discharge: 05/28/18 Discharge to: Home
--- NOTE | 2018-05-22 13:59 | CP.PCM.PN ---
Subjective - Date & Time of Evaluation Date of Evaluation: 05/22/18 Time of Evaluation: 13:58 - Subjective Subjective: Patient seen in room and discussed possibility of getting an AFO prior to d/c home. Will put a request with strategic client executive. Not sure if he already got an AFO after first CVA no pain continues to improve excellent acute rehab candidate Objective - Vital Signs/Intake and Output Vital Signs (last 24 hours): Temp Pulse Resp BP Pulse Ox 98.2 F 63 20 143/78 95 05/22/18 09:00 05/22/18 10:00 05/22/18 09:00 05/22/18 10:00 05/21/18 20:54 - Medications Medications: Current Medications Acetaminophen (Tylenol 325mg Tab) 650 mg PO Q6 PRN PRN Reason: Headache Last Admin: 05/19/18 18:36 Dose: 650 mg Albuterol/Ipratropium (Duoneb 3 Mg/0.5 Mg (3 Ml) Ud) 3 ml IH RQ6 PRN PRN Reason: Shortness of Breath Allopurinol (Zyloprim) 300 mg PO DAILY [facility] Last Admin: 05/22/18 08:25 Dose: 300 mg Amlodipine Besylate (Norvasc) 10 mg PO DAILY [facility] Last Admin: 05/22/18 08:26 Dose: 10 mg Atorvastatin Calcium (Lipitor) 80 mg PO HS [facility] Last Admin: 05/21/18 21:50 Dose: 80 mg Bisacodyl (Dulcolax) 10 mg AR DAILY PRN PRN Reason: Constipation Last Admin: 05/07/18 17:10 Dose: 10 mg Docusate Sodium (Colace) 100 mg PO BID [facility] Last Admin: 05/22/18 08:25 Dose: 100 mg Famotidine (Pepcid) 40 mg PO HS [facility] Last Admin: 05/21/18 21:50 Dose: 40 mg Gabapentin (Neurontin) 600 mg PO DAILY@1999 [facility] Last Admin: 05/21/18 20:32 Dose: 600 mg Hydralazine HCl (Apresoline) 25 mg PO Q8 PRN PRN Reason: for systolic bp >160mmhg Last Admin: 05/08/18 08:12 Dose: 25 mg Levothyroxine Sodium (Synthroid) 75 mcg PO DAILY@0630 [facility] Losartan Potassium (Cozaar) 100 mg PO DAILY [facility] Last Admin: 05/22/18 08:26 Dose: 100 mg Magnesium Hydroxide (Milk Of Magnesia) 30 ml PO DAILY PRN PRN Reason: Constipation Last Admin: 05/05/18 21:49 Dose: 30 ml Metoprolol Tartrate (Lopressor) 50 mg PO Q12 [facility] Last Admin: 05/22/18 08:25 Dose: 50 mg Sodium Chloride (Sodium Chloride Tab) 1 gm PO Q8 [facility] Last Admin: 05/22/18 13:04 Dose: 1 gm Tizanidine HCl (Zanaflex) 4 mg PO HS PRN PRN Reason: Muscle spasm Last Admin: 05/21/18 20:37 Dose: 4 mg - Labs Labs: 05/21/18 05:15 05/22/18 05:25
[2018-05-23] MEDS: Levothyroxine 75 MCG TAB PO SCH (05:46)
--- NOTE | 2018-05-23 08:43 | CP.PCM.PN ---
Subjective - Date & Time of Evaluation Date of Evaluation: 05/23/18 Time of Evaluation: 08:43 - Subjective Subjective: pt is seen and examined, follow up consult is dictated #[id number] check bmp daily Objective - Vital Signs/Intake and Output Vital Signs (last 24 hours): Temp Pulse Resp BP Pulse Ox 98.2 F 56 L 20 136/70 96 05/22/18 20:02 05/23/18 08:35 05/22/18 20:02 05/23/18 08:35 05/22/18 20:02 Intake and Output: 05/23/18 05/23/18 06:59 18:59 Intake Total 250 Output Total 500 Balance -250 - Medications Medications: Current Medications Acetaminophen (Tylenol 325mg Tab) 650 mg PO Q6 PRN PRN Reason: Headache Last Admin: 05/19/18 18:36 Dose: 650 mg Albuterol/Ipratropium (Duoneb 3 Mg/0.5 Mg (3 Ml) Ud) 3 ml IH RQ6 PRN PRN Reason: Shortness of Breath Allopurinol (Zyloprim) 300 mg PO DAILY [facility] Last Admin: 05/23/18 08:35 Dose: 300 mg Amlodipine Besylate (Norvasc) 10 mg PO DAILY [facility] Last Admin: 05/23/18 08:35 Dose: 10 mg Atorvastatin Calcium (Lipitor) 80 mg PO HS [facility] Last Admin: 05/22/18 21:02 Dose: 80 mg Bisacodyl (Dulcolax) 10 mg [place] DAILY PRN PRN Reason: Constipation Last Admin: 05/07/18 17:10 Dose: 10 mg Docusate Sodium (Colace) 100 mg PO BID [facility] Last Admin: 05/23/18 08:34 Dose: 100 mg Famotidine (Pepcid) 40 mg PO HS [facility] Last Admin: 05/22/18 21:02 Dose: 40 mg Gabapentin (Neurontin) 600 mg PO DAILY@1999 [facility] Last Admin: 05/22/18 20:56 Dose: 600 mg Hydralazine HCl (Apresoline) 25 mg PO Q8 PRN PRN Reason: for systolic bp >160mmhg Last Admin: 05/08/18 08:12 Dose: 25 mg Levothyroxine Sodium (Synthroid) 75 mcg PO DAILY@0630 [facility] Last Admin: 05/23/18 05:46 Dose: 75 mcg Losartan Potassium (Cozaar) 100 mg PO DAILY [facility] Last Admin: 05/23/18 08:34 Dose: 100 mg Magnesium Hydroxide (Milk Of Magnesia) 30 ml PO DAILY PRN PRN Reason: Constipation Last Admin: 05/05/18 21:49 Dose: 30 ml Metoprolol Tartrate (Lopressor) 50 mg PO Q12 [facility] Last Admin: 05/23/18 08:34 Dose: 50 mg Sodium Chloride (Sodium Chloride Tab) 1 gm PO Q8 [facility] Last Admin: 05/23/18 05:46 Dose: 1 gm Tizanidine HCl (Zanaflex) 4 mg PO HS PRN PRN Reason: Muscle spasm Last Admin: 05/22/18 20:57 Dose: 4 mg - Labs Labs: 05/21/18 05:15 05/22/18 05:25
--- NOTE | 2018-05-23 09:52 | CON ---
DATE: 05/22/2018 REQUESTED BY: Charles Linder M.D. HISTORY OF PRESENT ILLNESS: Mr. Pineda is about 72 years old very pleasant elderly Bulgarian male with history of hypertension, BPH, COPD, CVA with the left hemiparesis, who had a fall in the house and sustained an injury to the head and found to have a subdural hematoma. The patient was admitted initially to [facility]. The patient underwent evacuation of subdural hematoma. From there, the patient was transferred to the acute rehab on 05/04/2018. His hospital course was complicated by hyponatremia. Serum sodium is 118. Now, the patient is feeling much better, not in acute distress this morning. Denies any headache, dizziness. Denies any chest pain or palpitation. Denies any fever or cough. The patient complains of cramps like contractions of the left hand, but able to move both upper extremities and also both lower extremities. PHYSICAL EXAMINATION: GENERAL: Mr. Pineda is a 72 years old elderly Bulgarian male, moderately built, moderately nourished, not in acute distress. VITAL SIGNS: Blood pressure 143/78, pulse 63, respirations 20, temperature 98.2, saturations 96%. Height 5 feet 5 inches. Weight is 65 pounds. HEENT: Pupils, normal reactive to light and accommodation. Conjunctivae pink. Sclerae anicteric. Tongue is moist and trachea is midline. LUNGS: Symmetric on both sides. Bilateral breath sounds present. Now clear to auscultation. CVS: [place] at the fifth intercostal space of midclavicular line. S1, S2 audible. No murmur. No gallop. ABDOMEN: Normal in appearance, soft, tympanic. No guarding. No rigidity. No hepatosplenomegaly. ARTIFICIAL FLOWERS DYER: The patient is alert, awake, oriented x3. Slight left-sided weakness. Power of 3 to 4/5 in left upper and left lower extremity. CURRENT MEDICATIONS: Include as follows, Lexapro was discontinued. Hydralazine 25 mg p.o. every 8 hours, Colace 100 mg p.o. b.i.d., losartan 100 mg p.o. daily, Dulcolax 10 mg per rectal daily, DuoNeb inhaler, Lipitor 80 mg p.o. at bedtime, and Lopressor 50 mg p.o. every 12 hours, Milk of Magnesia 30 mL p.o. daily, gabapentin 600 mg p.o. daily, amlodipine 10 mg daily, Pepcid 40 mg at bedtime, sodium chloride tablet 1 g p.o. every 8 hours, Synthroid 75 mcg daily, Tylenol, allopurinol 300 mg p.o. daily, Zanaflex 4 mg p.o. at bedtime. LABORATORY DATA: Include as follows: As of 05/22/2018, sodium 122, potassium 4.3, chloride 90, CO2 21, BUN 17, creatinine 0.9, glucose 94, and calcium 8.7. T4 is 3.3 and total T3 is 0.71, and T3 uptake is 42.1, TSH is 11.7, serum cortisol is 12.9. As of 05/21/2018, uric acid 2.8, urine osmolality 553, and urine sodium is 48 as of 05/21/2018. ASSESSMENT: In summary, Mr. Pineda is a 72 years old elderly [place]ian male with a history of hypertension, cerebrovascular accident with a left sided weakness status post fall, sustained a subdural hematoma, status post evacuation of the hematoma on 04/30/2018, and subsequently transferred to acute rehab on 05/04/2018 with low serum sodium and hypothyroids. Hyponatremia secondary to syndrome of inappropriate antidiuretic hormone secretion mostly likely secondary to drugs, Lexapro on top of hypothyroidism and recent subdural hematoma. I agree with Dr. Linder to discontinue Lexapro at this time and I agree with Synthroid 75 mcg daily and titrate as needed, and also continue sodium chloride tablet 1 g every 8 hours and high protein diet and restrict fluid is to 1200 mL per day. Discussed with the patient and nurse in the rounds and we will continue to monitor BMP. If his serum sodium does not improve, if any change in mental status. We will consider Tolvaptan or hypertonic saline (06:15) . No need at this time not those two hypertonic saline and Tolvaptan at this time. We will continue to monitor daily BMP. We will follow with you. Thank you for allowing me to participate in your patient's care. Vannesa Zaman MD [facility] # [id number]
[2018-05-23 10:00] LABS: BLOOD UREA NITROGEN 15 mg/dl (9-20); CALCIUM 8.6 mg/dL (8.4-10.2); GFR AFRICAN-AMERICAN > 60; GFR NON-AFRICAN AMERICAN > 60
[2018-05-24] MEDS: Levothyroxine 75 MCG TAB PO SCH (06:34)
--- NOTE | 2018-05-24 06:57 | PN ---
DATE: 05/23/2018 FOLLOWUP RENAL CONSULTATION LOCATION: The patient is located in room 623, bed 1. REQUESTED BY: Charles Linder MD REASON FOR FOLLOWUP: Hyponatremia, SIADH. SUBJECTIVE: Mr. Rivas is a 72-year-old elderly very pleasant French male with a history of longstanding hypertension, hypothyroidism, COPD, CVA, obstructive sleep apnea with left-sided weakness and status post fall in the house who was admitted with a head injury and found to have a subdural hematoma on 04/28/2018, status post craniotomy and evacuation of hematoma on 04/30/2018. Subsequently, the patient transferred to acute rehab on 05/04/2018. The patient was found to have hyponatremia. The patient is not in acute distress. Denies any chest pain or palpitation. Denies any fever or cough. No abdominal pain. No nausea, vomiting, or diarrhea. PHYSICAL EXAMINATION: VITAL SIGNS: As follows this morning: Blood pressure 136/70, pulse 56, respiration 22, temperature 97, saturation 97%. Height 5 feet 5 inches. Weight is 165 pounds. GENERAL: Mr. Rivas is a 72-year-old elderly French male, moderate built, moderate nourished, not in acute distress. HEENT: Pupils are normal and reactive to light and accommodation. Conjunctivae are pink. Sclerae are anicteric. Tongue is moist. Trachea is midline. LUNGS: Symmetric on both sides. Bilateral breath sounds present. Clear to auscultation. CVS: [place] at the fifth intercostal space, midclavicular line. S1, S2 audible. No murmur or gallop. ABDOMEN: Normal in appearance, soft, tympanic. No guarding. No rigidity. No hepatosplenomegaly. 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 Sensory system is grossly within normal limit. Motor system is normal on the right side. On the left side, the patient has mild weakness. Power 3-4/5 in both upper and lower extremities on the left side. EXTREMITIES: No cyanosis, no clubbing, no edema. MEDICATIONS: Include as follows: Hydralazine 25 mg p.o. every 8 hours, Colace 100 mg p.o. b.i.d., losartan 100 mg daily, Dulcolax 10 mg per rectal daily, DuoNeb inhaler, Lipitor 80 mg at bedtime, Lopressor 50 mg p.o. every 12 hours, milk of magnesia, Neurontin 600 mg p.o. daily, amlodipine 10 mg daily, Pepcid 40 mg daily, sodium chloride tablet 1 gm p.o. every 8 hours, Synthroid 75 mcg daily, Tylenol 650 mg p.o. every 6 hours, Zanaflex, allopurinol 300 mg p.o. daily. LABORATORY DATA: Include as follows as of 05/23/2018: Sodium 127, potassium 4.5, chloride 91, CO2 of 26, BUN 15, creatinine 0.9, glucose 141, calcium 8.6. ASSESSMENT: In summary, Mr. Rivas is a 72-year-old elderly male with a history of hypertension, cerebrovascular accident with left-sided weakness, hypothyroidism, chronic obstructive pulmonary disease, obstructive sleep apnea with low serum sodium, status post fall with head injury and subdural hematoma, status post evacuation of the hematoma about three weeks ago with low sodium. 1. Hyponatremia, most likely secondary to syndrome of inappropriate secretion of antidiuretic hormone, cannot rule out secondary to hypothyroidism. 2. Hypertension. 3. Status post evacuation of subdural hematoma. PLAN: Continue Synthroid 75 mcg daily. Continue sodium chloride tablet and restrict fluids to 1.2 liters and high protein diet. No need for the tolvaptan at this time, serum sodium is improving. Continue to monitor BMP daily. We will follow with you. Thank you for allowing me to participate in your patient's care. Vannesa Zaman MD
[2018-05-24 08:29] LABS: BLOOD UREA NITROGEN 15 mg/dl (9-20); CALCIUM 8.7 mg/dL (8.4-10.2); GFR AFRICAN-AMERICAN > 60; GFR NON-AFRICAN AMERICAN > 60
--- NOTE | 2018-05-24 18:25 | CP.PCM.PN ---
Subjective - Date & Time of Evaluation Date of Evaluation: 05/24/18 Time of Evaluation: 18:25 - Subjective Subjective: Patient seen in the room, doing well denies sob/cp ambulating now 150' with AD making great gains and set for d/c home 05/27/18 Objective - Vital Signs/Intake and Output Vital Signs (last 24 hours): Temp Pulse Resp BP Pulse Ox 98.1 F 63 18 151/76 H 97 05/24/18 08:03 05/24/18 08:14 05/24/18 08:03 05/24/18 08:14 05/24/18 08:03 Intake and Output: 05/24/18 05/24/18 06:59 18:59 Intake Total 250 1200 Output Total 450 Balance -200 1200 - Medications Medications: Current Medications Acetaminophen (Tylenol 325mg Tab) 650 mg PO Q6 PRN PRN Reason: Headache Last Admin: 05/19/18 18:36 Dose: 650 mg Albuterol/Ipratropium (Duoneb 3 Mg/0.5 Mg (3 Ml) Ud) 3 ml IH RQ6 PRN PRN Reason: Shortness of Breath Allopurinol (Zyloprim) 300 mg PO DAILY [facility] Last Admin: 05/24/18 08:13 Dose: 300 mg Amlodipine Besylate (Norvasc) 10 mg PO DAILY [facility] Last Admin: 05/24/18 08:09 Dose: 10 mg Atorvastatin Calcium (Lipitor) 80 mg PO HS [facility] Last Admin: 05/23/18 21:02 Dose: 80 mg Bisacodyl (Dulcolax) 10 mg [place] DAILY PRN PRN Reason: Constipation Last Admin: 05/07/18 17:10 Dose: 10 mg Docusate Sodium (Colace) 100 mg PO BID [facility] Last Admin: 05/24/18 17:13 Dose: 100 mg Famotidine (Pepcid) 40 mg PO HS [facility] Last Admin: 05/23/18 21:02 Dose: 40 mg Gabapentin (Neurontin) 600 mg PO DAILY@1999 [facility] Last Admin: 05/23/18 20:54 Dose: 600 mg Hydralazine HCl (Apresoline) 25 mg PO Q8 PRN PRN Reason: for systolic bp >160mmhg Last Admin: 05/08/18 08:12 Dose: 25 mg Levothyroxine Sodium (Synthroid) 75 mcg PO DAILY@0630 [facility] Last Admin: 05/24/18 06:34 Dose: 75 mcg Losartan Potassium (Cozaar) 100 mg PO DAILY [facility] Last Admin: 05/24/18 08:13 Dose: 100 mg Magnesium Hydroxide (Milk Of Magnesia) 30 ml PO DAILY PRN PRN Reason: Constipation Last Admin: 05/05/18 21:49 Dose: 30 ml Metoprolol Tartrate (Lopressor) 50 mg PO Q12 [facility] Last Admin: 05/24/18 08:14 Dose: 50 mg Sodium Chloride (Sodium Chloride Tab) 1 gm PO Q8 [facility] Last Admin: 05/24/18 13:15 Dose: 1 gm Tizanidine HCl (Zanaflex) 4 mg PO HS PRN PRN Reason: Muscle spasm Last Admin: 05/23/18 21:04 Dose: 4 mg - Labs Labs: 05/21/18 05:15 05/24/18 08:02
[2018-05-25] MEDS: Levothyroxine 75 MCG TAB PO SCH (06:38)
[2018-05-25 10:20] LABS: BLOOD UREA NITROGEN 21 mg/dl (9-20); CALCIUM 9.2 mg/dL (8.4-10.2); GFR AFRICAN-AMERICAN > 60; GFR NON-AFRICAN AMERICAN > 60
--- NOTE | 2018-05-25 10:56 | CP.PCM.PN ---
<Sherly Zee - Last Filed: 05/25/18 12:43> Subjective - Date & Time of Evaluation Date of Evaluation: 05/25/18 Time of Evaluation: 10:55 - Subjective Subjective: No acute overnight events. Pt is seen and examined in acute rehab. Pt states that he feels well, working will in PT. Objective - Vital Signs/Intake and Output Vital Signs (last 24 hours): Temp Pulse Resp BP Pulse Ox 97.3 F L 59 L 18 150/77 98 05/25/18 08:30 05/25/18 08:30 05/25/18 08:30 05/25/18 08:30 05/25/18 08:30 Intake and Output: 05/25/18 05/25/18 06:59 18:59 Intake Total 100 Output Total 500 Balance -400 - Medications Medications: Current Medications Acetaminophen (Tylenol 325mg Tab) 650 mg PO Q6 PRN PRN Reason: Headache Last Admin: 05/19/18 18:36 Dose: 650 mg Albuterol/Ipratropium (Duoneb 3 Mg/0.5 Mg (3 Ml) Ud) 3 ml IH RQ6 PRN PRN Reason: Shortness of Breath Allopurinol (Zyloprim) 300 mg PO DAILY [facility] Last Admin: 05/25/18 08:19 Dose: 300 mg Amlodipine Besylate (Norvasc) 10 mg PO DAILY [facility] Last Admin: 05/25/18 08:20 Dose: 10 mg Atorvastatin Calcium (Lipitor) 80 mg PO HS [facility] Last Admin: 05/24/18 21:08 Dose: 80 mg Bisacodyl (Dulcolax) 10 mg [place] DAILY PRN PRN Reason: Constipation Last Admin: 05/07/18 17:10 Dose: 10 mg Docusate Sodium (Colace) 100 mg PO BID [facility] Last Admin: 05/25/18 08:19 Dose: 100 mg Famotidine (Pepcid) 40 mg PO HS [facility] Last Admin: 05/24/18 21:09 Dose: 40 mg Gabapentin (Neurontin) 600 mg PO DAILY@1999 [facility] Last Admin: 05/24/18 20:59 Dose: 600 mg Hydralazine HCl (Apresoline) 25 mg PO Q8 PRN PRN Reason: for systolic bp >160mmhg Last Admin: 05/08/18 08:12 Dose: 25 mg Levothyroxine Sodium (Synthroid) 75 mcg PO DAILY@0630 [facility] Last Admin: 05/25/18 06:38 Dose: 75 mcg Losartan Potassium (Cozaar) 100 mg PO DAILY [facility] Last Admin: 05/25/18 08:19 Dose: 100 mg Magnesium Hydroxide (Milk Of Magnesia) 30 ml PO DAILY PRN PRN Reason: Constipation Last Admin: 05/05/18 21:49 Dose: 30 ml Metoprolol Tartrate (Lopressor) 50 mg PO Q12 [facility] Last Admin: 05/25/18 08:20 Dose: 50 mg Sodium Chloride (Sodium Chloride Tab) 1 gm PO Q8 [facility] Last Admin: 05/25/18 06:38 Dose: 1 gm Tizanidine HCl (Zanaflex) 4 mg PO HS PRN PRN Reason: Muscle spasm Last Admin: 05/24/18 21:11 Dose: 4 mg - Labs Labs: 05/21/18 05:15 05/25/18 09:55 - Constitutional Appears: No Acute Distress - Head Exam Additional comments: Well healing head lac on the L side - Eye Exam Eye Exam: EOMI - ENT Exam ENT Exam: Mucous Membranes Moist - Respiratory Exam Respiratory Exam: Clear to Ausculation Bilateral - Cardiovascular Exam Cardiovascular Exam: REGULAR RHYTHM, +S1, +S2 - GI/Abdominal Exam GI & Abdominal Exam: Soft. absent: Tenderness - Neurological Exam Neurological Exam: Alert, Awake Assessment and Plan - Assessment and Plan (Free Text) Assessment: 72 YO male PMHx of CVA with L sided residual weakness, HTN, subdural hematoma, BPH is admitted to acute rehab for deconditioning and PT/OT. -labs reviewed, VS stable -hyponatremia is improving, resolved today -plan as ordered -continue PT/OT -neurology and nephrology on consul <Charles Linder - Last Filed: 05/28/18 23:12> Objective - Vital Signs/Intake and Output Vital Signs (last 24 hours): Temp Pulse Resp BP Pulse Ox 97.5 F L 58 L 20 143/72 96 05/27/18 10:00 05/27/18 10:00 05/27/18 10:00 05/27/18 10:00 05/27/18 10:00 - Labs Labs: 05/21/18 05:15 05/26/18 15:30 Assessment and Plan (1) Neurologic gait dysfunction Status: Acute (2) Status post CVA Status: Acute (3) History of subdural hematoma (post traumatic) Status: Acute (4) Hypertension Status: Chronic (5) Hyponatremia Status: Acute (6) Hypothyroidism Status: Acute - Assessment and Plan (Free Text) Plan: I was present during evaluation and discussed with Dr Zee re plans of care and mgt. Charles Linder M.D.
--- NOTE | 2018-05-25 13:30 | CP.PCM.PN ---
Subjective - Date & Time of Evaluation Date of Evaluation: 05/25/18 Time of Evaluation: 13:29 - Subjective Subjective: Patient seen in the room doing well no pain no sob/cp or fever continue current care getting set for d/c home in 2 days Objective - Vital Signs/Intake and Output Vital Signs (last 24 hours): Temp Pulse Resp BP Pulse Ox 97.3 F L 59 L 18 150/77 98 05/25/18 08:30 05/25/18 08:30 05/25/18 08:30 05/25/18 08:30 05/25/18 08:30 Intake and Output: 05/25/18 05/25/18 06:59 18:59 Intake Total 100 Output Total 500 Balance -400 - Medications Medications: Current Medications Acetaminophen (Tylenol 325mg Tab) 650 mg PO Q6 PRN PRN Reason: Headache Last Admin: 05/19/18 18:36 Dose: 650 mg Allopurinol (Zyloprim) 300 mg PO DAILY [facility] Last Admin: 05/25/18 08:19 Dose: 300 mg Amlodipine Besylate (Norvasc) 10 mg PO DAILY [facility] Last Admin: 05/25/18 08:20 Dose: 10 mg Atorvastatin Calcium (Lipitor) 80 mg PO [facility] Last Admin: 05/24/18 21:08 Dose: 80 mg Bisacodyl (Dulcolax) 10 mg [place] DAILY PRN PRN Reason: Constipation Last Admin: 05/07/18 17:10 Dose: 10 mg Docusate Sodium (Colace) 100 mg PO BID [facility] Last Admin: 05/25/18 08:19 Dose: 100 mg Famotidine (Pepcid) 40 mg PO [facility] Last Admin: 05/24/18 21:09 Dose: 40 mg Gabapentin (Neurontin) 600 mg PO DAILY@2000 [facility] Last Admin: 05/24/18 20:59 Dose: 600 mg Hydralazine HCl (Apresoline) 25 mg PO Q8 PRN PRN Reason: for systolic bp >160mmhg Last Admin: 05/08/18 08:12 Dose: 25 mg Levothyroxine Sodium (Synthroid) 75 mcg PO DAILY@0630 [facility] Last Admin: 05/25/18 06:38 Dose: 75 mcg Losartan Potassium (Cozaar) 100 mg PO DAILY [facility] Last Admin: 05/25/18 08:19 Dose: 100 mg Magnesium Hydroxide (Milk Of Magnesia) 30 ml PO DAILY PRN PRN Reason: Constipation Last Admin: 05/05/18 21:49 Dose: 30 ml Metoprolol Tartrate (Lopressor) 50 mg PO Q12 [facility] Last Admin: 05/25/18 08:20 Dose: 50 mg Sodium Chloride (Sodium Chloride Tab) 1 gm PO Q8 [facility] Last Admin: 05/25/18 06:38 Dose: 1 gm Tizanidine HCl (Zanaflex) 4 mg PO HS PRN PRN Reason: Muscle spasm Last Admin: 05/24/18 21:11 Dose: 4 mg - Labs Labs: 05/21/18 05:15 05/25/18 09:55
--- NOTE | 2018-05-25 20:15 | CP.PCM.PN ---
Subjective - Date & Time of Evaluation Date of Evaluation: 05/25/18 Time of Evaluation: 20:14 - Subjective Subjective: pt is seen and examined, follow up consult is dictated #[id number] d/c fluid restriction bmp in am Objective - Vital Signs/Intake and Output Vital Signs (last 24 hours): Temp Pulse Resp BP Pulse Ox 97.3 F L 59 L 18 150/77 98 05/25/18 08:30 05/25/18 08:30 05/25/18 08:30 05/25/18 08:30 05/25/18 08:30 Intake and Output: 05/25/18 05/26/18 18:59 06:59 Intake Total 500 Output Total 600 Balance -100 - Medications Medications: Current Medications Acetaminophen (Tylenol 325mg Tab) 650 mg PO Q6 PRN PRN Reason: Headache Last Admin: 05/19/18 18:36 Dose: 650 mg Allopurinol (Zyloprim) 300 mg PO DAILY [facility] Last Admin: 05/25/18 08:19 Dose: 300 mg Amlodipine Besylate (Norvasc) 10 mg PO DAILY [facility] Last Admin: 05/25/18 08:20 Dose: 10 mg Atorvastatin Calcium (Lipitor) 80 mg PO [facility] Last Admin: 05/24/18 21:08 Dose: 80 mg Bisacodyl (Dulcolax) 10 mg [place] DAILY PRN PRN Reason: Constipation Last Admin: 05/07/18 17:10 Dose: 10 mg Docusate Sodium (Colace) 100 mg PO BID [facility] Last Admin: 05/25/18 16:00 Dose: 100 mg Famotidine (Pepcid) 40 mg PO [facility] Last Admin: 05/24/18 21:09 Dose: 40 mg Gabapentin (Neurontin) 600 mg PO DAILY@1999 [facility] Last Admin: 05/24/18 20:59 Dose: 600 mg Hydralazine HCl (Apresoline) 25 mg PO Q8 PRN PRN Reason: for systolic bp >160mmhg Last Admin: 05/08/18 08:12 Dose: 25 mg Levothyroxine Sodium (Synthroid) 75 mcg PO DAILY@0630 [facility] Last Admin: 05/25/18 06:38 Dose: 75 mcg Losartan Potassium (Cozaar) 100 mg PO DAILY [facility] Last Admin: 05/25/18 08:19 Dose: 100 mg Magnesium Hydroxide (Milk Of Magnesia) 30 ml PO DAILY PRN PRN Reason: Constipation Last Admin: 05/05/18 21:49 Dose: 30 ml Metoprolol Tartrate (Lopressor) 50 mg PO Q12 [facility] Last Admin: 05/25/18 08:20 Dose: 50 mg Sodium Chloride (Sodium Chloride Tab) 1 gm PO Q8 [facility] Last Admin: 05/25/18 14:00 Dose: 1 gm Tizanidine HCl (Zanaflex) 4 mg PO HS PRN PRN Reason: Muscle spasm Last Admin: 05/24/18 21:11 Dose: 4 mg - Labs Labs: 05/21/18 05:15 05/25/18 09:55
[2018-05-26] MEDS: Levothyroxine 75 MCG TAB PO SCH (05:42)
[2018-05-26 08:03] VITALS: RESP 20
--- NOTE | 2018-05-26 13:41 | CP.PCM.PN ---
Subjective - Date & Time of Evaluation Date of Evaluation: 05/26/18 Time of Evaluation: 13:41 - Subjective Subjective: Patient in the room with no complaints set for d/c tomorrow care has been arranged he has improved nicely will continue to require therapies Objective - Vital Signs/Intake and Output Vital Signs (last 24 hours): Temp Pulse Resp BP Pulse Ox 98.1 F 71 20 125/60 100 05/26/18 08:03 05/26/18 08:21 05/26/18 08:03 05/26/18 08:21 05/26/18 08:03 - Medications Medications: Current Medications Acetaminophen (Tylenol 325mg Tab) 650 mg PO Q6 PRN PRN Reason: Headache Last Admin: 05/19/18 18:36 Dose: 650 mg Allopurinol (Zyloprim) 300 mg PO DAILY [facility] Last Admin: 05/26/18 08:21 Dose: 300 mg Amlodipine Besylate (Norvasc) 10 mg PO DAILY [facility] Last Admin: 05/26/18 08:21 Dose: 10 mg Atorvastatin Calcium (Lipitor) 80 mg PO [facility] Last Admin: 05/25/18 21:06 Dose: 80 mg Bisacodyl (Dulcolax) 10 mg [place] DAILY PRN PRN Reason: Constipation Last Admin: 05/07/18 17:10 Dose: 10 mg Docusate Sodium (Colace) 100 mg PO BID [facility] Last Admin: 05/26/18 08:20 Dose: 100 mg Famotidine (Pepcid) 40 mg PO [facility] Last Admin: 05/25/18 21:42 Dose: 40 mg Gabapentin (Neurontin) 600 mg PO DAILY@1999 [facility] Last Admin: 05/25/18 20:59 Dose: 600 mg Hydralazine HCl (Apresoline) 25 mg PO Q8 PRN PRN Reason: for systolic bp >160mmhg Last Admin: 05/08/18 08:12 Dose: 25 mg Levothyroxine Sodium (Synthroid) 75 mcg PO DAILY@0630 [facility] Last Admin: 05/26/18 05:42 Dose: 75 mcg Losartan Potassium (Cozaar) 100 mg PO DAILY [facility] Last Admin: 05/26/18 08:20 Dose: 100 mg Magnesium Hydroxide (Milk Of Magnesia) 30 ml PO DAILY PRN PRN Reason: Constipation Last Admin: 06/30/18 21:49 Dose: 30 ml Metoprolol Tartrate (Lopressor) 50 mg PO Q12 [facility] Last Admin: 05/26/18 08:20 Dose: 50 mg Sodium Chloride (Sodium Chloride Tab) 1 gm PO Q8 [facility] Last Admin: 05/26/18 05:56 Dose: 1 gm Tizanidine HCl (Zanaflex) 4 mg PO HS PRN PRN Reason: Muscle spasm Last Admin: 05/25/18 21:07 Dose: 4 mg - Labs Labs: 05/21/18 05:15 05/25/18 09:55
--- NOTE | 2018-05-26 14:24 | CP.PCM.PN ---
Subjective - Date & Time of Evaluation Date of Evaluation: 05/26/18 Time of Evaluation: 14:24 - Subjective Subjective: pt is seen and examined, follow up consult is dictated #[id number] Objective - Vital Signs/Intake and Output Vital Signs (last 24 hours): Temp Pulse Resp BP Pulse Ox 98.1 F 71 20 125/60 100 05/26/18 08:03 05/26/18 08:21 05/26/18 08:03 05/26/18 08:21 05/26/18 08:03 - Medications Medications: Current Medications Acetaminophen (Tylenol 325mg Tab) 650 mg PO Q6 PRN PRN Reason: Headache Last Admin: 05/19/18 18:36 Dose: 650 mg Allopurinol (Zyloprim) 300 mg PO DAILY [facility] Last Admin: 05/26/18 08:21 Dose: 300 mg Amlodipine Besylate (Norvasc) 10 mg PO DAILY [facility] Last Admin: 05/26/18 08:21 Dose: 10 mg Atorvastatin Calcium (Lipitor) 80 mg PO [facility] Last Admin: 05/25/18 21:06 Dose: 80 mg Bisacodyl (Dulcolax) 10 mg [place] DAILY PRN PRN Reason: Constipation Last Admin: 05/07/18 17:10 Dose: 10 mg Docusate Sodium (Colace) 100 mg PO BID [facility] Last Admin: 05/26/18 08:20 Dose: 100 mg Famotidine (Pepcid) 40 mg PO HS [facility] Last Admin: 05/25/18 21:42 Dose: 40 mg Gabapentin (Neurontin) 600 mg PO DAILY@2000 [facility] Last Admin: 05/25/18 20:59 Dose: 600 mg Hydralazine HCl (Apresoline) 25 mg PO Q8 PRN PRN Reason: for systolic bp >160mmhg Last Admin: 05/08/18 08:12 Dose: 25 mg Levothyroxine Sodium (Synthroid) 75 mcg PO DAILY@0630 [facility] Last Admin: 05/26/18 05:42 Dose: 75 mcg Losartan Potassium (Cozaar) 100 mg PO DAILY [facility] Last Admin: 05/26/18 08:20 Dose: 100 mg Magnesium Hydroxide (Milk Of Magnesia) 30 ml PO DAILY PRN PRN Reason: Constipation Last Admin: 05/05/18 21:49 Dose: 30 ml Metoprolol Tartrate (Lopressor) 50 mg PO Q12 [facility] Last Admin: 05/26/18 08:20 Dose: 50 mg Sodium Chloride (Sodium Chloride Tab) 1 gm PO Q8 [facility] Last Admin: 05/26/18 05:56 Dose: 1 gm Tizanidine HCl (Zanaflex) 4 mg PO HS PRN PRN Reason: Muscle spasm Last Admin: 05/25/18 21:07 Dose: 4 mg - Labs Labs: 05/21/18 05:15 05/25/18 09:55
[2018-05-26 16:31] LABS: ALB/GLOB RATIO 1.4 (1.0-2.1); ALBUMIN 4.2 g/dL (3.5-5.0); ALT/SGPT 49 U/L (21-72); AST/SGOT 37 U/L (17-59); BLOOD UREA NITROGEN 24 mg/dl (9-20); GFR AFRICAN-AMERICAN > 60; GFR NON-AFRICAN AMERICAN > 60
[2018-05-27] MEDS: Levothyroxine 75 MCG TAB PO SCH (05:58)
[2018-05-27 08:09] VITALS: BP 143/72; PULSE 58
[2018-05-27 10:33] VITALS: TEMP 97.5; O2SAT 96
--- NOTE | 2018-05-28 10:27 | PN ---
DATE: 05/25/2018 FOLLOWUP RENAL CONSULTATION LOCATION: The patient is located in room 623, bed 1. REQUESTED BY: Charles Linder MD SUBJECTIVE: Mr. Rivas is a 72-year-old elderly very pleasant [place]an male with a past medical history significant for hypertension, BPH, hyperglycemia secondary to steroids, CVA with left hemiplegia who was initially admitted to [facility] after he sustained a fall and head injury and found to have a subdural hematoma on 04/28/2018. Subsequently, the patient underwent evacuation of the subdural hematoma on 04/30/2018 and subsequently transferred to acute rehab on 05/04/2018. The patient was found to have hyponatremia during in the hospital course. Initial renal consult was requested for evaluation of hyponatremia. 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 The patient is off Lexapro and started on Synthroid. The patient is feeling much better. Denies any chest pain or palpitation. Denies any fever or cough. No abdominal pain. No nausea, vomiting, or diarrhea. PHYSICAL EXAMINATION: VITAL SIGNS: As follows. Blood pressure this afternoon 132/69, pulse 65, respirations 18, temperature 97.3, saturation 98%. Height 5 feet 5 inches and weight is 164 pounds. GENERAL: Mr. Rivas is a 72-year-old elderly male, moderately built, moderately nourished, not in distress. HEENT: Pupils are normal and reactive to light and accommodation. Conjunctivae are pink. Sclerae are anicteric. The patient has a healed craniotomy scar on the left frontoparietal area. No thyroid enlargement. LUNGS: Symmetric on both sides. Bilateral breath sounds present. Clear to auscultation. CVS: [place] at the fifth intercostal space, midclavicular line. S1, S2 audible. No murmur or gallop. ABDOMEN: Normal in appearance. Soft, tympanic. No guarding. No rigidity. No hepatosplenomegaly. 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 Sensory system is grossly within normal limits. Motor system, mild left-sided weakness. Power 4-5/5 on the left side, right side 5/5. EXTREMITIES: No cyanosis, no clubbing, no edema. Cranial nerves II-XII grossly intact. CURRENT MEDICATIONS: Include as follows: Hydralazine 25 mg p.o. every 8 hours, Colace 100 mg p.o. b.i.d., losartan 100 mg daily, Dulcolax 10 mg per rectal daily, Lipitor 80 mg p.o. at bedtime, metoprolol 50 mg p.o. every 12 hours, magnesium oxide, gabapentin 600 mg p.o. daily, amlodipine 10 mg p.o. daily, Pepcid 40 mg p.o. at bedtime, sodium chloride tablet 1 gm p.o. every 8 hours, levothyroxine 75 mcg daily, Tylenol, Zanaflex and allopurinol. LABORATORY DATA: Include as follows as of 05/25/2018: Sodium 134, potassium 4.1, chloride 98, CO2 of 25, BUN 21, creatinine 0.9, glucose 138, calcium 9.2. ASSESSMENT AND PLAN: In summary, Mr. Rivas is a 72-year-old elderly very pleasant [place] male with hypertension, benign prostatic hypertrophy, hyperglycemia and cerebrovascular accident with left-sided weakness, status post fall with subdural hematoma, status post craniotomy on 04/30/2018 and subsequently transferred to acute rehab on 05/04/2018 with hypothyroidism and also hyponatremia now. 1. Hyponatremia, most likely secondary to drug induced and syndrome of inappropriate secretion of antidiuretic hormone secondary to Lexapro, cannot rule out secondary to hypothyroidism. 2. Hypertension. Blood pressure is stable. Continue his current medications of hydralazine, losartan, amlodipine and metoprolol. 3. Hypothyroidism. Continue Synthroid 75 mcg daily. Serum sodium now is 134. 4. Prerenal azotemia. We will discontinue fluid restriction now and continue sodium chloride tablet 1 gm p.o. every 8 hours. Repeat BMP in a.m. We will follow with you. Thank you for allowing me to participate in your patient's care. Vannesa Zaman MD
--- NOTE | 2018-05-28 10:28 | PN ---
DATE: 05/26/2018 FOLLOWUP RENAL CONSULTATION Requested Dr. Charles Linder. REASON FOR FOLLOWUP: Hyponatremia, for further evaluation. HISTORY OF PRESENT ILLNESS: Mr. 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 Subsequently, the patient underwent evacuation of the subdural hematoma on 04/30/2018. Subsequently, the patient was transferred to acute rehab on 05/04/2018 and found to have hyponatremia during his hospital course. The patient is feeling much better, not in acute distress. 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 The patient is feeling much better, not in acute distress. Denies any headache, dizziness. Denies any chest pain or palpitation. Denies any fever or cough. No abdominal pain. No nausea, vomiting, or diarrhea. PHYSICAL EXAMINATION VITAL SIGNS: As follows; blood pressure 130/73, pulse 69, respirations about 20, and temperature 98.1. Height is 5 feet 5 inches, weight is 164 pounds. GENERAL: Mr. Chaudhry is a 72-year-old elderly [place] male, moderately built, moderately nourished, not in acute distress. HEENT: Pupils are normal, and reactive to light and accommodation. Conjunctivae pink. Sclerae anicteric. Tongue is moist. NECK: Trachea is midline. LUNGS: Symmetric on both sides. Bilateral breath sounds present. Clear to auscultation. CVS: [place] at the fifth intercostal space, midclavicular line. S1, S2 audible. No murmur or gallop. ABDOMEN: Normal in appearance, soft, tympanic. No guarding. No rigidity. No hepatosplenomegaly. [employer] SALES REPRESENTATIVE: The patient is alert, awake, and oriented x3. Sensory system is within normal limits. Motor system, mild left-sided weakness. EXTREMITIES: No cyanosis, no clubbing, no edema. CURRENT MEDICATIONS: Include as follows; hydralazine 25 mg p.o. every 8 hours, p.r.n. Colace, losartan 100 mg daily, Dulcolax, Lipitor 80 mg at bedtime, metoprolol 50 mg every 12 hours, Milk of Magnesia, gabapentin, amlodipine 10 mg daily, Pepcid 40 mg p.o. at bedtime, sodium chloride tablet 1 gm p.o. every 8 hours, levothyroxine 75 mcg daily, Tylenol, Zanaflex, and allopurinol. LABORATORY DATA: His lab data include as follows; as of 05/26/2018, sodium 134, potassium 3.9, chloride 97, CO2 26, BUN 24, creatinine 0.8, glucose 129, calcium is 9. Total bili 0.5, AST 37, ALT 49, alkaline phosphatase 57, total protein 7.1, albumin is 4.2. IMPRESSION: In summary, Mr. Chaudhry is a 72-year-old elderly [place] male with a history of hypertension, hypothyroidism, hyperlipidemia, cerebrovascular accident with left-sided weakness, and questionable asthma versus chronic obstructive pulmonary disease, who was admitted after he had a fall and sustained head injury and subdural hematoma, status post evacuation of the subdural hematoma in [facility] on 04/30/2018, and subsequently transferred to acute rehab. 1. Hyponatremia secondary to most likely syndrome of inappropriate antidiuretic hormone secretion secondary to drug induced, Lexapro, and cannot rule out secondary to hypothyroidism. 2. Hypertension. 3. Cerebrovascular accident with left-sided weakness. Continue physical therapy. Continue sodium chloride tablets and continue Synthroid at this time. Discontinue fluid restriction at this time. 4. Mild prerenal azotemia. We will continue to monitor for possible discharge tomorrow. The patient is stable from the renal standpoint. Thank you for allowing me to participate in your patient's care. The patient can be followed as an outpatient. Vannesa Zaman MD
--- NOTE | 2018-05-28 23:05 | CP.PCM.PN ---
Subjective - Date & Time of Evaluation Date of Evaluation: 05/22/18 Time of Evaluation: 10:00 - Subjective Subjective: Patient remains stable. Noted elevated TSH Has no chest pain Objective - Vital Signs/Intake and Output Vital Signs (last 24 hours): Temp Pulse Resp BP Pulse Ox 97.5 F L 58 L 20 143/72 96 05/27/18 10:00 05/27/18 10:00 05/27/18 10:00 05/27/18 10:00 05/27/18 10:00 - Labs Labs: 05/21/18 05:15 05/26/18 15:30 - Head Exam Head Exam: NORMAL INSPECTION - Eye Exam Eye Exam: Normal appearance - Respiratory Exam Respiratory Exam: Clear to Ausculation Bilateral - Cardiovascular Exam Cardiovascular Exam: REGULAR RHYTHM - GI/Abdominal Exam GI & Abdominal Exam: Normal Bowel Sounds - Neurological Exam Neurological Exam: CN II-XII Intact, Oriented x3 Assessment and Plan (1) Neurologic gait dysfunction Status: Acute (2) Status post CVA Status: Acute (3) History of subdural hematoma (post traumatic) Status: Acute (4) Hypertension Status: Chronic (5) Hyponatremia Status: Acute (6) Hypothyroidism Status: Acute - Assessment and Plan (Free Text) Plan: Cont meds Cont tx Cont PT levothyroxine daily
--- NOTE | 2018-05-28 23:08 | CP.PCM.PN ---
Subjective - Date & Time of Evaluation Date of Evaluation: 05/23/18 Time of Evaluation: 10:00 - Subjective Subjective: Patient continues to do well Noted improvement of hyponatremia Has no dizziness Has no headaches. Objective - Vital Signs/Intake and Output Vital Signs (last 24 hours): Temp Pulse Resp BP Pulse Ox 97.5 F L 58 L 20 143/72 96 05/27/18 10:00 05/27/18 10:00 05/27/18 10:00 05/27/18 10:00 05/27/18 10:00 - Labs Labs: 05/21/18 05:15 05/26/18 15:30 - Head Exam Head Exam: NORMAL INSPECTION - Eye Exam Eye Exam: Normal appearance - ENT Exam ENT Exam: Mucous Membranes Moist - Respiratory Exam Respiratory Exam: Clear to Ausculation Bilateral - Cardiovascular Exam Cardiovascular Exam: REGULAR RHYTHM - GI/Abdominal Exam GI & Abdominal Exam: Normal Bowel Sounds - Neurological Exam Neurological Exam: CN II-XII Intact, Oriented x3 Assessment and Plan (1) Neurologic gait dysfunction Status: Acute (2) Status post CVA Status: Acute (3) History of subdural hematoma (post traumatic) Status: Acute (4) Hypertension Status: Chronic (5) Hyponatremia Status: Acute (6) Hypothyroidism Status: Acute - Assessment and Plan (Free Text) Plan: Con tmeds Cont levothyroxine monitor sodium cont PT
--- NOTE | 2018-05-28 23:10 | CP.PCM.PN ---
Subjective - Date & Time of Evaluation Date of Evaluation: 05/24/18 Time of Evaluation: 10:40 - Subjective Subjective: Patient remains stable Noted improvement of sodium Has no chest pain or SOB. Objective - Vital Signs/Intake and Output Vital Signs (last 24 hours): Temp Pulse Resp BP Pulse Ox 97.5 F L 58 L 20 143/72 96 05/27/18 10:00 05/27/18 10:00 05/27/18 10:00 05/27/18 10:00 05/27/18 10:00 - Labs Labs: 05/21/18 05:15 05/26/18 15:30 - Head Exam Head Exam: NORMAL INSPECTION - Eye Exam Eye Exam: Normal appearance - ENT Exam ENT Exam: Mucous Membranes Moist - Respiratory Exam Respiratory Exam: Clear to Ausculation Bilateral - Cardiovascular Exam Cardiovascular Exam: REGULAR RHYTHM - GI/Abdominal Exam GI & Abdominal Exam: Normal Bowel Sounds - Neurological Exam Neurological Exam: Awake, Oriented x3 - Psychiatric Exam Psychiatric exam: Normal Mood Assessment and Plan (1) Neurologic gait dysfunction Status: Acute (2) Status post CVA Status: Acute (3) History of subdural hematoma (post traumatic) Status: Acute (4) Hypertension Status: Chronic (5) Hyponatremia Status: Acute (6) Hypothyroidism Status: Acute - Assessment and Plan (Free Text) Plan: Cont meds Cont tx Cont PT cont levothyroxine
--- NOTE | 2018-05-28 23:15 | CP.PCM.PN ---
Subjective - Date & Time of Evaluation Date of Evaluation: 05/26/18 Time of Evaluation: 10:30 - Subjective Subjective: patient is doing a lot better. Noted sodium to be 134 On levothyroxine Has no dizziness has no chest pain or SOB. Objective - Vital Signs/Intake and Output Vital Signs (last 24 hours): Temp Pulse Resp BP Pulse Ox 97.5 F L 58 L 20 143/72 96 05/27/18 10:00 05/27/18 10:00 05/27/18 10:00 05/27/18 10:00 05/27/18 10:00 - Labs Labs: 05/21/18 05:15 05/26/18 15:30 - Head Exam Head Exam: NORMAL INSPECTION - Eye Exam Eye Exam: Normal appearance - Respiratory Exam Respiratory Exam: Clear to Ausculation Bilateral - Cardiovascular Exam Cardiovascular Exam: REGULAR RHYTHM - Neurological Exam Neurological Exam: CN II-XII Intact, Oriented x3 - Psychiatric Exam Psychiatric exam: Normal Mood Assessment and Plan (1) Neurologic gait dysfunction Status: Acute (2) Status post CVA Status: Acute (3) History of subdural hematoma (post traumatic) Status: Acute (4) Hypertension Status: Chronic (5) Hyponatremia Status: Acute (6) Hypothyroidism Status: Acute - Assessment and Plan (Free Text) Plan: Cont meds Cont tx Cont PT Dc planning
--- NOTE | 2018-05-28 23:18 | CP.PCM.DIS ---
Provider - Provider Date of Admission: 05/04/18 15:55 Attending physician: Charles Linder MD Time Spent in preparation of Discharge (in minutes): 30 Diagnosis - Discharge Diagnosis (1) Neurologic gait dysfunction Status: Acute (2) Status post CVA Status: Acute (3) History of subdural hematoma (post traumatic) Status: Acute (4) Hypertension Status: Chronic (5) Hyponatremia Status: Acute (6) Hypothyroidism Status: Acute Hospital Course - Lab Results Lab Results: Micro Results 05/10/18 08:22 Urine,Clean Catch Urine Culture - Final No Growth (<1,000 CFU/ML) 05/04/18 21:19 Urine,Catheterized Urine Culture - Final No Growth (<1,000 CFU/ML) Most Recent Lab Values WBC 5.8 K/uL (4.8-10.8) 05/21/18 05:15 RBC 3.86 Mil/uL (4.40-5.90) L 05/21/18 05:15 Hgb 13.1 g/dL (12.0-18.0) 05/21/18 05:15 Hct 37.4 % (35.0-51.0) 05/21/18 05:15 MCV 96.9 fl (80.0-94.0) H 05/21/18 05:15 MCH 33.8 pg (27.0-31.0) H 05/21/18 05:15 MCHC 34.9 g/dL (33.0-37.0) 05/21/18 05:15 RDW 15.1 % (11.5-14.5) H 05/21/18 05:15 Plt Count 223 K/uL (130-400) 05/21/18 05:15 MPV 6.7 fl (7.2-11.7) L 05/21/18 05:15 Neut % (Auto) 63.9 % (50.0-75.0) 05/21/18 05:15 Lymph % (Auto) 22.9 % (20.0-40.0) 05/21/18 05:15 [place] % (Auto) 9.5 % (0.0-10.0) 05/21/18 05:15 Eos % (Auto) 3.0 % (0.0-4.0) 05/21/18 05:15 Baso % (Auto) 0.7 % (0.0-2.0) 05/21/18 05:15 Neut # (Auto) 3.7 K/uL (1.8-7.0) 05/21/18 05:15 Lymph # (Auto) 1.3 K/uL (1.0-4.3) 05/21/18 05:15 [place] # (Auto) 0.6 K/uL (0.0-0.8) 05/21/18 05:15 Eos # (Auto) 0.2 K/uL (0.0-0.7) 05/21/18 05:15 Baso # (Auto) 0.0 K/uL (0.0-0.2) 05/21/18 05:15 Sodium 134 mmol/l (132-148) 05/26/18 15:30 Potassium 3.9 MMOL/L (3.6-5.0) 05/26/18 15:30 Chloride 97 mmol/L (98-107) L 05/26/18 15:30 Carbon Dioxide 26 mmol/L (22-30) 05/26/18 15:30 Anion Gap 15 (10-20) 05/26/18 15:30 BUN 24 mg/dl (9-20) H 05/26/18 15:30 Creatinine 0.8 mg/dl (0.8-1.5) 05/26/18 15:30 Est GFR ( Amer) > 60 05/26/18 15:30 Est GFR (Non-Af Amer) > 60 05/26/18 15:30 POC Glucose (mg/dL) 122 mg/dL (65-110) H 05/10/18 05:49 Random Glucose 129 mg/dL (75-110) H 05/26/18 15:30 Hemoglobin A1c 5.7 % (4.2-6.5) 05/07/18 10:21 Uric Acid 2.8 mg/Dl (3.5-8.5) L 05/21/18 10:46 Calcium 9.0 mg/dL (8.4-10.2) 05/26/18 15:30 Total Bilirubin 0.5 mg/dl (0.2-1.3) 05/26/18 15:30 AST 37 U/L (17-59) 05/26/18 15:30 ALT 49 U/L (21-72) 05/26/18 15:30 Alkaline Phosphatase 57 U/L (38-126) 05/26/18 15:30 NT-Pro-B Natriuret Pep 827 pg/ml (0-900) 05/05/18 09:40 Total Protein 7.1 G/DL (6.3-8.2) 05/26/18 15:30 Albumin 4.2 g/dL (3.5-5.0) 05/26/18 15:30 Globulin 2.9 gm/dL (2.2-3.9) 05/26/18 15:30 Albumin/Globulin Ratio 1.4 (1.0-2.1) 05/26/18 15:30 Triglycerides 91 mg/DL (0-149) 05/07/18 10:21 Cholesterol 92 mg/dL (0-199) 05/07/18 10:21 LDL Cholesterol Direct 36 mg/dL (0-129) 05/07/18 10:21 HDL Cholesterol 36 MG/DL (30-70) 05/07/18 10:21 Thyroxine (T4) 3.30 ug/dl (5.5-11.0) L 05/22/18 05:25 Total T3 0.711 nmol/L (1.49-2.60) L 05/22/18 05:25 T3 Uptake 42.2 % (23.0-41.0) H 05/22/18 05:25 TSH 3rd Generation 11.70 mIU/ML (0.46-4.68) H 05/21/18 10:46 Cortisol AM Sample 12.9 ug/dL (4.46-22.7) 05/21/18 10:46 Urine Color Yellow (YELLOW) 05/10/18 08:22 Urine Clarity Slighty-cloudy (Clear) 05/10/18 08:22 Urine pH 6.0 (5.0-8.0) 05/10/18 08:22 Ur Specific [place] 1.014 (1.003-1.030) 05/10/18 08:22 Urine Protein Negative mg/dL (NEGATIVE) 05/10/18 08:22 Urine Glucose (UA) Neg mg/dL (Normal) 05/10/18 08:22 Urine Ketones Negative mg/dL (NEGATIVE) 05/10/18 08:22 Urine Blood Negative (NEGATIVE) 05/10/18 08:22 Urine Nitrate Negative (NEGATIVE) 05/10/18 08:22 Urine Bilirubin Negative (NEGATIVE) 05/10/18 08:22 Urine Urobilinogen 0.2-1.0 mg/dL (0.2-1.0) 05/10/18 08:22 Ur Leukocyte Esterase Neg Chrissy/uL (Negative) 05/10/18 08:22 Urine RBC (Auto) < 1 /hpf (0-3) 05/10/18 08:22 Urine Microscopic WBC 1 /hpf (0-5) 05/10/18 08:22 Urine Osmolality 553 mosm/kg (300-1000) 05/21/18 13:30 Ur Random Creatinine 216.9 mg/dL 05/21/18 13:30 Ur Random Sodium 48 meq/L 05/21/18 13:30 Ur Random Potassium 54.2 mmol/L 05/21/18 13:30 - Hospital Course Hospital Course: This is a 72 y/o male admitted for further PT after he had evacuation of subdural hematoma. he sustained a SDH after a fall at home., elevated BP. He also had urinary retention He was noted to have hyponatremia He was started on phys therapy and was able to achieve all the goals of phys therapy. he was tretaed for hypothyroidism which was noted due to persistent hyponatremia. sodium levels have returned to normal after adequate treatment of hypothyroidism. he was discharge in stable condition. Discharge Exam - Head Exam Head Exam: NORMAL INSPECTION - Eye Exam Eye Exam: Normal appearance - Respiratory Exam Respiratory Exam: NORMAL BREATHING PATTERN - Cardiovascular Exam Cardiovascular Exam: REGULAR RHYTHM - GI/Abdominal Exam GI & Abdominal Exam: Normal Bowel Sounds - Neurological Exam Neurological exam: CN II-XII Intact - Psychiatric Exam Psychiatric exam: Normal Mood Discharge Plan - Discharge Medications Prescriptions: hydrALAZINE [Apresoline] 25 mg PO Q8 PRN #90 tab PRN Reason: for systolic bp >160mmhg Docusate [Colace] 100 mg PO BID #60 cap Losartan [Cozaar] 100 mg PO DAILY #30 tab Atorvastatin [Lipitor] 80 mg PO HS #30 tab Metoprolol Tartrate [Lopressor] 50 mg PO Q12 #60 tab Gabapentin [Neurontin] 600 mg PO DAILY@1999 #30 tab amLODIPine [Norvasc] 10 mg PO DAILY #30 tab Famotidine [Pepcid] 20 mg PO HS #30 tab Levothyroxine [Synthroid] 75 mcg PO DAILY@0630 #30 tab tiZANidine [Zanaflex] 4 mg PO BID PRN #60 tab PRN Reason: Muscle Spasm Allopurinol [Zyloprim] 300 mg PO DAILY #30 tab - Follow Up Plan Condition: GOOD Disposition: HOME/ ROUTINE Instructions: High Blood Pressure (DC), Stroke (DC), Craniotomy (DC) Additional Instructions: advised follow up with PMD in 1 week.
== END 2018-05-27 12:27 | disposition home or self-care (01) | DRG 945 ==
PROVIDERS: ADMIT Family Medicine; ATTEND Family Medicine
PROC: F08Z4FZ Home Management Treatment using Assistive, Adaptive, Supportive or Protective Equipment (ICD-10-PCS; principal; 2018-05-05)
PROC: F07M6FZ Therapeutic Exercise Treatment of Musculoskeletal System - Whole Body using Assistive, Adaptive, Supportive or Protective Equipment (ICD-10-PCS; 2018-05-05)
PROC: F07Z9FZ Gait Training/Functional Ambulation Treatment using Assistive, Adaptive, Supportive or Protective Equipment (ICD-10-PCS; 2018-05-05)
PROC: F06Z6ZZ Communicative/Cognitive Integration Skills Treatment (ICD-10-PCS; 2018-05-07)
DX: S06.5X9D Traumatic subdural hemorrhage with loss of consciousness of unspecified duration, subsequent encounter (principal); J44.1 Chronic obstructive pulmonary disease with (acute) exacerbation; E22.2 Syndrome of inappropriate secretion of antidiuretic hormone; K59.00 Constipation, unspecified; N40.0 Benign prostatic hyperplasia without lower urinary tract symptoms; W19.XXXD Unspecified fall, subsequent encounter; Y92.009 Unspecified place in unspecified non-institutional (private) residence as the place of occurrence of the external cause; Z87.891 Personal history of nicotine dependence; Z98.42 Cataract extraction status, left eye; Z98.41 Cataract extraction status, right eye; T38.0X5A Adverse effect of glucocorticoids and synthetic analogues, initial encounter; R26.9 Unspecified abnormalities of gait and mobility; R79.89 Other specified abnormal findings of blood chemistry; E03.9 Hypothyroidism, unspecified; E11.65 Type 2 diabetes mellitus with hyperglycemia; E78.5 Hyperlipidemia, unspecified; G47.00 Insomnia, unspecified; G47.33 Obstructive sleep apnea (adult) (pediatric); I11.0 Hypertensive heart disease with heart failure; I50.9 Heart failure, unspecified